=== PATIENT | male | born 1955 | race Caucasian/White ===

== ENCOUNTER 2017-06-13 18:45 | Emergency (ER) | payer BC ==
[2017-06-13 19:21] VITALS: RESP 18
[2017-06-13] MEDS ORDERED: SODIUM CHLORIDE 0.9% 1,000 ML IV STA (19:59)
[2017-06-13] MEDS ORDERED: MAG HYDROX/AL HYDROX/SIMETH 30 ML, HYOSCYAMINE ELIXIR 10 ML, CIMETIDINE HCL 300 MG, LID... PO STA ×4 (20:00)
--- NOTE | 2017-06-13 20:02 | ED ---
Abdominal Pain HPI - General Chief Complaint: Abdominal Pain Stated Complaint: Abd Pain Time Seen by Provider: 06/13/17 19:50 Source: patient, RN notes reviewed Mode of arrival: ambulatory Limitations: no limitations - History of Present Illness Initial Comments: This is a 61-year-old male who presents to the emergency department with chief complaint of abdominal pain. Patient states that the pain is generalized but is especially severe in the left upper quadrant. He states that the abdominal pain started on Wednesday. He went to an urgent care on and was discharged home without a diagnosis. Patient describes the pain is intermittent and sharp. He states that it goes away feelings on his left side. He states that pain is also relieved after having a bowel movement or belching. He states that he has been having normal bowel movements. Denies nausea or vomiting, diarrhea or constipation. He reports intermittent fevers. Denies chest pain or shortness of breath, dysuria or hematuria. - Related Data Home Medications Medication Instructions Recorded Confirmed Aspirin 325 mg PO DAILY PRN 10/01/15 10/02/15 Previous Rx's Medication Instructions Recorded Atorvastatin [Lipitor] 20 mg PO HS #30 tab 10/03/15 Meclizine [Antivert] 25 mg PO TID PRN #20 tab 10/03/15 Allergies Allergy/AdvReac Type Severity Reaction Status Date / Time No Known Allergies Allergy Verified 06/13/17 19:20 Review of Systems ROS Statement: Those systems with pertinent positive or pertinent negative responses have been documented in the HPI. ROS Other: All systems not noted in ROS Statement are negative. 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, CVA/TIA Additional Past Medical History / Comment(s): Shingelles in the past History of Any Multi-Drug Resistant Organisms: None Reported Past Surgical History: Orthopedic Surgery Additional Past Surgical History / Comment(s): R hand metal removed Past Anesthesia/Blood Transfusion Reactions: No Reported Reaction Past Psychological History: No Psychological Hx Reported Smoking Status: Current every day smoker Past Alcohol Use History: Occasional Past Drug Use History: None Reported - Past Family History Mother Family Medical History: Diabetes Mellitus, Hypertension Additional Family Medical History / Comment(s): Mother was 82 yrs old when she . Father Family Medical History: COPD Additional Family Medical History / Comment(s): Father is 82 yrs old. General Exam - General Exam Comments Initial Comments: General: Awake and alert, well-developed; in no apparent distress. HEENT: Head atraumatic, normocephalic. Pupils are equal, round and reactive to light. Extraocular movements intact. Oropharynx moist without erythema or exudate. Neck: Supple. Normal ROM. Cardiovascular: Regular rate and rhythm. No murmurs, rubs or gallops. Chest symmetrical. Respiratory: Lungs clear to auscultation bilaterally. No wheezes, rales or rhonchi. Normal respiratory effort with no use of accessory muscles. Abdomen: Obese. Soft, mildly distended. Tenderness on palpation of the epigastrium and left upper quadrant with guarding. No rigidity or rebound. Hypoactive bowel sounds in all 4 quadrants. Musculoskeletal: Normal ROM, no tenderness bilateral upper and lower extremities. Skin: [place], warm and dry without rashes or lesions. Neurological: Alert and oriented x3. CN II-XII grossly intact. Speech is fluent and answers are appropriate. No focal neuro deficits. Psychiatric: Normal mood and affect. No overt signs of depression or anxiety noted. Limitations: no limitations Course Vital Signs 06/13/17 06/13/17 06/13/17 19:18 21:20 22:29 Temperature 99.4 F 98.8 F 98 F Pulse Rate 115 H 71 78 Respiratory 18 18 18 Rate Blood Pressure 157/88 116/69 115/75 O2 Sat by Pulse 97 98 98 Oximetry - Reevaluation(s) Reevaluation #1: At this time, patient was reevaluated. He is resting comfortably in bed. He states that the GI cocktail seemed to have relieved some of his symptoms. Patient continues to have tenderness with guarding on palpation of epigastrium and left upper quadrant. Will order computed tomography scan of abdomen and pelvis. 06/13/17 21:02 Medical Decision Making - Medical Decision Making This is a 61-year-old male who presented to the emergency department for evaluation of abdominal pain. Patient has been experiencing intermittent sharp epigastric abdominal pain for the past 4 days. Deny nausea or vomiting, diarrhea or constipation. He did state that he felt like he was having intermittent fevers. He denied any urinary symptoms. On physical examination, patient is tender on palpation of epigastrium and left upper quadrant with guarding. A computed tomography scan was obtained. CBC revealed a white count of 13.8 with a left shift at 11.5. Liver enzymes were mildly elevated with an AST of 86, ALT 91, alkaline phosphatase 344 and a total bilirubin of 2.5. These are elevated when compared to previous laboratory studies. Computed tomography scan of abdomen and pelvis with contrast revealed massive ascites, multiple liver masses consistent with metastatic disease and a 5 cm mass in the tail of the pancreas. These findings were discussed in length in detail with the patient and his at bedside. Recommended admission to the hospital for further evaluation. Patient refuses admission and would like to follow up outpatient with oncology. Patient's vital signs are stable and he is in no acute distress. He will be discharged home at this time. This case was discussed in length with attending physician, Dr. Fenton. - Lab Data Result diagrams: 06/13/17 20:20 06/13/17 20:20 Lab Results 06/13/17 06/13/17 06/13/17 Range/Units 20:20 20:20 20:20 WBC 13.8 H (3.8-10.6) k/uL RBC 5.76 (4.30-5.90) m/uL Hgb 16.9 (13.0-17.5) gm/dL Hct 51.9 (39.0-53.0) % MCV 90.1 (80.0-100.0) fL MCH 29.4 (25.0-35.0) pg MCHC 32.7 (31.0-37.0) g/dL RDW 13.5 (11.5-15.5) % Plt Count 159 (150-450) k/uL Neutrophils % 84 % Lymphocytes % 5 % Monocytes % 8 % Eosinophils % 2 % Basophils % 0 % Neutrophils # 11.5 H (1.3-7.7) k/uL Lymphocytes # 0.8 L (1.0-4.8) k/uL Monocytes # 1.1 H (0-1.0) k/uL Eosinophils # 0.3 (0-0.7) k/uL Basophils # 0.0 (0-0.2) k/uL Sodium 137 (137-145) mmol/L Potassium 4.6 (3.5-5.1) mmol/L Chloride 101 (98-107) mmol/L Carbon Dioxide 24 (22-30) mmol/L Anion Gap 12 mmol/L BUN 18 (9-20) mg/dL Creatinine 0.90 (0.66-1.25) mg/dL Est GFR (CKD-EPI)AfAm >90 (>60 ml/min/1.73 sqM) Est GFR (CKD-EPI)NonAf >90 (>60 ml/min/1.73 sqM) Glucose 119 H (74-99) mg/dL Calcium 9.4 (8.4-10.2) mg/dL Total Bilirubin 2.5 H (0.2-1.3) mg/dL AST 86 H (17-59) U/L ALT 91 H (21-72) U/L Alkaline Phosphatase 344 H (38-126) U/L Total Protein 5.8 L (6.3-8.2) g/dL Albumin 3.3 L (3.5-5.0) g/dL Amylase 74 (30-110) U/L Lipase 241 (23-300) U/L Urine Color [place] Urine Appearance Cloudy (Clear) Urine pH 5.5 (5.0-8.0) Ur Specific [place] 1.027 (1.001-1.035) Urine Protein 1+ H (Negative) Urine Glucose (UA) Negative (Negative) Urine Ketones Trace H (Negative) Urine Blood Negative (Negative) Urine Nitrite Negative (Negative) Urine Bilirubin 1+ H (Negative) Urine Urobilinogen 6.0 (<2.0) mg/dL Ur Leukocyte Esterase Negative (Negative) Urine RBC 62 H (0-5) /hpf Urine WBC 2 (0-5) /hpf Ur Squamous Epith Cells 1 (0-4) /hpf Calcium Oxalate Crystal Rare H (None) /hpf Hyaline Casts 3 H (0-2) /lpf Urine Mucus Moderate H (None) /hpf - Radiology Data Radiology results: report reviewed KUB impression: Relative paucity of bowel gas, suboptimal examination due to patient habitus. CT abdomen and pelvis with contrast impression: Massive ascites. Multiple low- density liver masses consistent with metastatic disease. 5 cm low-density mass in the tail of the pancreas suspicious for tumor. Follow-up is recommended. Disposition Clinical Impression: Pancreatic mass, Liver mass, Ascites Disposition: HOME SELF-CARE Condition: Fair Instructions: Ascites (ED), Abdominal Pain (ED) Additional Instructions: Please follow-up with Dr. Hayward as soon as possible. Please follow up with primary care provider within 1-2 days. Return to emergency department if symptoms should worsen or any concerns arise. Is patient prescribed a controlled substance at d/c from ED?: No Referrals: Hang Young MD [Primary Care Provider] - 1-2 days Glenis Hayward MD [STAFF PHYSICIAN] - 1-2 days Time of Disposition: 23:35
--- NOTE | 2017-06-13 20:12 | XR ---
EXAMINATION TYPE: XR KUB DATE OF EXAM: 06/13/2017 8:09 PM CLINICAL HISTORY: Abdominal pain and nausea TECHNIQUE: 2 views the abdomen were obtained. COMPARISON: None. FINDINGS: Ossific nonobstructive bowel gas pattern is identified. There is a relative paucity of manasa l gas noted. However, examination is suboptimal due to patient habitus. IMPRESSION: Relative paucity of bowel gas, suboptimal examination due to patient habitus.
[2017-06-13 20:33] LABS: Basophils % (A) 0 %; Eosinophils # (A) 0.3 k/uL (0-0.7); Eosinophils % (A) 2 %; HCT 51.9 % (39.0-53.0); HGB 16.9 gm/dL (13.0-17.5); Lymphocytes # (A) 0.8 k/uL (1.0-4.8); Lymphocytes % (A) 5 %; MCH 29.4 pg (25.0-35.0); MCHC 32.7 g/dL (31.0-37.0); MCV 90.1 fL (80.0-100.0); Mean Platelet Volume 7.7; Monocytes # (A) 1.1 k/uL (0-1.0); Monocytes % (A) 8 %; Neutrophils # (A) 11.5 k/uL (1.3-7.7); Neutrophils % (A) 84 %; Platelet Count 159 k/uL (150-450); RBC 5.76 m/uL (4.30-5.90); RDW 13.5 % (11.5-15.5); WBC 13.8 k/uL (3.8-10.6)
[2017-06-13 20:39] LABS: Appearance,Urine Cloudy (Clear); Bilirubin,Urine 1+ (Negative); Blood,Urine Negative (Negative); Calcium Oxalate Crystals,Urine Rare /hpf; Color,Urine Orange; Glucose,Urine (UA) Negative (Negative); Hyaline Casts,Urine 3 /lpf (0-2); Ketones,Urine Trace (Negative); Leukocyte Esterase,Urine Negative (Negative); Mucus,Urine Moderate /hpf; Nitrite,Urine Negative (Negative); PH, Urine 5.5 (5.0-8.0); Protein,Urine 1+ (Negative); RBC,Urine 62 /hpf (0-5); Specific Gravity,Urine 1.027 (1.001-1.035); Squamous Epithelial Cell,Urine 1 /hpf (0-4); WBC,Urine 2 /hpf (0-5)
[2017-06-13 20:44] LABS: ALT 91 U/L (21-72); AST 86 U/L (17-59); Albumin 3.3 g/dL (3.5-5.0); Alkaline Phosphatase 344 U/L (38-126); Amylase 74 U/L (30-110); Anion Gap 12 mmol/L; Blood Urea Nitrogen 18 mg/dL (9-20); Calcium 9.4 mg/dL (8.4-10.2); Carbon Dioxide 24 mmol/L (22-30); Chloride 101 mmol/L (98-107); Glucose 119 mg/dL (74-99); Lipase 241 U/L (23-300); Potassium 4.6 mmol/L (3.5-5.1); Sodium 137 mmol/L (137-145); Total Bilirubin 2.5 mg/dL (0.2-1.3); Total Protein 5.8 g/dL (6.3-8.2)
[2017-06-13] MEDS ORDERED: RX INFO: IV CONTRAST WAS GIVEN 1 EACH MISC MISCELLANE PRN (21:01)
[2017-06-13 22:30] VITALS: PULSE 78
--- NOTE | 2017-06-13 23:01 | CT ---
EXAMINATION TYPE: CT abdomen pelvis w con DATE OF EXAM: 06/13/2017 COMPARISON: NONE HISTORY: Generalized abdominal pain x [address] DLP: 3872 mGycm Automated exposure control for dose reduction was used. TECHNIQUE: Helical acquisition of images was performed from the lung bases through the pelvis. CONTRAST: Performed without Oral Contrast and with IV Contrast, patient injected with 100 mL of Isovue 300. FINDINGS: Lung bases are clear. There is no pleural effusion. There is no pericardial effusion. There is a large amount of ascites fluid throughout the abdomen. There are multiple variable-sized hy podense lesions throughout the liver that measure up to 4 cm. The bile ducts are not dilated. There i s a low-density 5 cm mass at the tail of the pancreas. There is no adrenal mass. Kidneys show satisfactory contrast opacification. There is no hydronephrosi s. There is no retroperitoneal adenopathy. I see no evidence of a bowel obstruction. There are no dilated loops. Bladder distends smoothly. Ther e is prostatic calcification. Lumbar vertebra have normal alignment. There is some vacuum disc phenomenon. There is degenerative sp ur formation. I see no compression fracture. I see no focal bone destruction. IMPRESSION: MASSIVE ASCITES. MULTIPLE LOW DENSITY LIVER MASSES CONSISTENT WITH METASTATIC DISEASE. 5 CM LOW-DENSITY MASS IN THE TAIL OF THE PANCREAS SUSPICIOUS FOR TUMOR. FOLLOW-UP IS RECOMMENDED.
[2017-06-13 23:48] VITALS: BP 116/78; TEMP 98.5
== END 2017-06-13 23:48 | disposition home or self-care (01) ==
LOC: EC 18:45
DX: R18.8 Other ascites (principal); R16.0 Hepatomegaly, not elsewhere classified; K86.89 Other specified diseases of pancreas; R10.13 Epigastric pain; R10.12 Left upper quadrant pain; R74.0 Nonspecific elevation of levels of transaminase and lactic acid dehydrogenase [LDH]; F17.200 Nicotine dependence, unspecified, uncomplicated; Z86.73 Personal history of transient ischemic attack (TIA), and cerebral infarction without residual deficits
CPT/HCPCS: 36415; 80053; 82150; 83690; 85025; 81001; 87086; 74018; 74177; 99284; 96360; 96361; Q9967

== ENCOUNTER 2017-06-17 15:05 | Inpatient (IN) | payer BC ==
[2017-06-17] MEDS ORDERED: ONDANSETRON 4 MG/2 ML VIAL IVP STA (15:59)
[2017-06-17] MEDS ORDERED: MORPHINE SULFATE 4 MG/ML SYRINGE IV STA (15:59)
[2017-06-17 16:18] LABS: Basophils # (A) 0.1 k/uL (0-0.2); Basophils % (A) 0 %; Eosinophils # (A) 0.4 k/uL (0-0.7); Eosinophils % (A) 3 %; HCT 52.8 % (39.0-53.0); HGB 17.4 gm/dL (13.0-17.5); Lymphocytes # (A) 0.8 k/uL (1.0-4.8); Lymphocytes % (A) 6 %; MCH 29.7 pg (25.0-35.0); MCV 90.1 fL (80.0-100.0); Mean Platelet Volume 7.3; Monocytes # (A) 1.1 k/uL (0-1.0); Monocytes % (A) 8 %; Neutrophils # (A) 11.7 k/uL (1.3-7.7); Neutrophils % (A) 83 %; Platelet Count 167 k/uL (150-450); RBC 5.86 m/uL (4.30-5.90); RDW 13.5 % (11.5-15.5); WBC 14.2 k/uL (3.8-10.6)
[2017-06-17 16:30] LABS: ALT 91 U/L (21-72); AST 88 U/L (17-59); Albumin 3.1 g/dL (3.5-5.0); Alkaline Phosphatase 390 U/L (38-126); Amylase 170 U/L (30-110); Anion Gap 10 mmol/L; Blood Urea Nitrogen 17 mg/dL (9-20); Calcium 9.4 mg/dL (8.4-10.2); Carbon Dioxide 23 mmol/L (22-30); Chloride 102 mmol/L (98-107); Glucose 138 mg/dL (74-99); Lipase 755 U/L (23-300); Potassium 5.1 mmol/L (3.5-5.1); Sodium 135 mmol/L (137-145); Total Bilirubin 3.5 mg/dL (0.2-1.3); Total Protein 5.7 g/dL (6.3-8.2)
--- NOTE | 2017-06-17 16:34 | XR ---
EXAMINATION TYPE: XR abdomen acute w cxr DATE OF EXAM: 06/17/2017 COMPARISON: 06/13/2017 HISTORY: Pain TECHNIQUE: Supine, upright, and left side down lateral decubitus views of the abdomen are obtained. FINDINGS: Coarsened interstitium be seen with chronic irritation lung disease. No focal pneumonia or pleural effusion pneumothorax. Arthropathy of the shoulder. Bowel gas pattern nonspecific. Air seen throughout large and small bowel loops in a nonspecific patte rn. Hypertrophic and degenerative change of the spine. IMPRESSION: Nonspecific abdomen.
[2017-06-17 17:04] LABS: Appearance,Urine Cloudy (Clear); Bilirubin,Urine 2+ (Negative); Blood,Urine Negative (Negative); Calcium Oxalate Crystals,Urine Rare /hpf; Color,Urine Dark Brown; Glucose,Urine (UA) Negative (Negative); Hyaline Casts,Urine 8 /lpf (0-2); Ketones,Urine Negative (Negative); Leukocyte Esterase,Urine Negative (Negative); Mucus,Urine Moderate /hpf; Nitrite,Urine Negative (Negative); PH, Urine 5.5 (5.0-8.0); Protein,Urine 1+ (Negative); RBC,Urine 2 /hpf (0-5); Specific Gravity,Urine 1.026 (1.001-1.035); Squamous Epithelial Cell,Urine <1 /hpf (0-4); WBC,Urine 1 /hpf (0-5)
[2017-06-17] MEDS ORDERED: ONDANSETRON 4 MG/2 ML VIAL IVP PRN (17:16)
[2017-06-17] MEDS ORDERED: NALOXONE 0.4 MG/ML 1 ML VIAL IV PRN (17:16)
--- NOTE | 2017-06-17 17:22 | ED ---
General Adult HPI - General Chief complaint: Abdominal Pain Stated complaint: retaining fluid Time Seen by Provider: 06/17/17 15:48 Source: patient, RN notes reviewed, old records reviewed Mode of arrival: ambulatory Limitations: no limitations - History of Present Illness Initial comments: 61-year-old male presenting with worsening abdominal pain and distention. Patient was evaluated emergency department several days ago, did receive computed tomography scan which showed ascites, pancreatic mass, and liver metastases. Patient has been unable to arrange outpatient follow-up. He was offered admission at that time but stated he preferred outpatient evaluation. This pain has worsened, his abdominal distention has worsened. He has had dark colored urine. There is been nausea with no significant vomiting. No chest pain or shortness of breath. Patient does complain of fatigue. - Related Data Home Medications Medication Instructions Recorded Confirmed No Known Home Medications [No 06/17/17 06/17/17 Known Home Medications] Allergies Allergy/AdvReac Type Severity Reaction Status Date / Time No Known Allergies Allergy Verified 06/17/17 16:13 Review of Systems ROS Statement: Those systems with pertinent positive or pertinent negative responses have been documented in the HPI. ROS Other: All systems not noted in ROS Statement are negative. Past Medical History Past Medical History: CVA/TIA Additional Past Medical History / Comment(s): Shingelles in the past History of Any Multi-Drug Resistant Organisms: None Reported Past Surgical History: Orthopedic Surgery Additional Past Surgical History / Comment(s): R hand metal removed Past Anesthesia/Blood Transfusion Reactions: No Reported Reaction Past Psychological History: No Psychological Hx Reported Smoking Status: Current every day smoker Past Alcohol Use History: Occasional Past Drug Use History: None Reported - Past Family History Mother Family Medical History: Diabetes Mellitus, Hypertension Additional Family Medical History / Comment(s): Mother was 82 yrs old when she . Father Family Medical History: COPD Additional Family Medical History / Comment(s): Father is 82 yrs old. General Exam Limitations: no limitations General appearance: alert, in no apparent distress Head exam: Present: atraumatic, normocephalic Eye exam: Present: PERRL, scleral icterus ENT exam: Present: normal exam Neck exam: Present: normal inspection. Absent: tenderness Respiratory exam: Present: normal lung sounds bilaterally. Absent: respiratory distress Cardiovascular Exam: Present: normal rhythm, tachycardia GI/Abdominal exam: Present: distended, tenderness. Absent: guarding, rebound Extremities exam: Present: normal inspection, normal capillary refill, pedal edema Back exam: Present: normal inspection, full ROM Neurological exam: Present: alert, oriented X3, CN II-XII intact. Absent: motor sensory deficit Skin exam: Present: warm, dry, intact. Absent: cyanosis, diaphoretic Course Vital Signs 06/17/17 06/17/17 15:12 16:58 Temperature 98.8 F 97.8 F Pulse Rate 118 H 101 H Respiratory 20 18 Rate Blood Pressure 152/92 152/95 O2 Sat by Pulse 96 96 Oximetry Medical Decision Making - Medical Decision Making 61-year-old male with new diagnosis of pancreatic mass with ascites and liver metastases. Laboratory studies are worsening, elevated lipase, elevated AST and ALT and worsening bilirubin. Patient will be admitted to internal medicine and gastroenterology and oncology will be placed on consult. Case discussed with Dr. Saldaña who will accept admission. - Lab Data Result diagrams: 06/17/17 16:09 06/17/17 16:09 Lab Results 06/17/17 06/17/17 06/17/17 Range/Units 16:09 16:09 16:09 WBC 14.2 H (3.8-10.6) k/uL RBC 5.86 (4.30-5.90) m/uL Hgb 17.4 (13.0-17.5) gm/dL Hct 52.8 (39.0-53.0) % MCV 90.1 (80.0-100.0) fL MCH 29.7 (25.0-35.0) pg MCHC 33.0 (31.0-37.0) g/dL RDW 13.5 (11.5-15.5) % Plt Count 167 (150-450) k/uL Neutrophils % 83 % Lymphocytes % 6 % Monocytes % 8 % Eosinophils % 3 % Basophils % 0 % Neutrophils # 11.7 H (1.3-7.7) k/uL Lymphocytes # 0.8 L (1.0-4.8) k/uL Monocytes # 1.1 H (0-1.0) k/uL Eosinophils # 0.4 (0-0.7) k/uL Basophils # 0.1 (0-0.2) k/uL Sodium 135 L (137-145) mmol/L Potassium 5.1 (3.5-5.1) mmol/L Chloride 102 (98-107) mmol/L Carbon Dioxide 23 (22-30) mmol/L Anion Gap 10 mmol/L BUN 17 (9-20) mg/dL Creatinine 0.80 (0.66-1.25) mg/dL Est GFR (CKD-EPI)AfAm >90 (>60 ml/min/1.73 sqM) Est GFR (CKD-EPI)NonAf >90 (>60 ml/min/1.73 sqM) Glucose 138 H (74-99) mg/dL Plasma Lactic Acid [place] 1.5 (0.7-2.0) mmol/L Calcium 9.4 (8.4-10.2) mg/dL Total Bilirubin 3.5 H (0.2-1.3) mg/dL AST 88 H (17-59) U/L ALT 91 H (21-72) U/L Alkaline Phosphatase 390 H (38-126) U/L Troponin I (0.000-0.034) ng/mL Total Protein 5.7 L (6.3-8.2) g/dL Albumin 3.1 L (3.5-5.0) g/dL Amylase 170 H (30-110) U/L Lipase 755 H (23-300) U/L Urine Color Urine Appearance (Clear) Urine pH (5.0-8.0) Ur Specific [place] (1.001-1.035) Urine Protein (Negative) Urine Glucose (UA) (Negative) Urine Ketones (Negative) Urine Blood (Negative) Urine Nitrite (Negative) Urine Bilirubin (Negative) Urine Urobilinogen (<2.0) mg/dL Ur Leukocyte Esterase (Negative) Urine RBC (0-5) /hpf Urine WBC (0-5) /hpf Ur Squamous Epith Cells (0-4) /hpf Calcium Oxalate Crystal (None) /hpf Hyaline Casts (0-2) /lpf Urine Mucus (None) /hpf 06/17/17 06/17/17 Range/Units 16:09 16:47 WBC (3.8-10.6) k/uL RBC (4.30-5.90) m/uL Hgb (13.0-17.5) gm/dL Hct (39.0-53.0) % MCV (80.0-100.0) fL MCH (25.0-35.0) pg MCHC (31.0-37.0) g/dL RDW (11.5-15.5) % Plt Count (150-450) k/uL Neutrophils % % Lymphocytes % % Monocytes % % Eosinophils % % Basophils % % Neutrophils # (1.3-7.7) k/uL Lymphocytes # (1.0-4.8) k/uL Monocytes # (0-1.0) k/uL Eosinophils # (0-0.7) k/uL Basophils # (0-0.2) k/uL Sodium (137-145) mmol/L Potassium (3.5-5.1) mmol/L Chloride (98-107) mmol/L Carbon Dioxide (22-30) mmol/L Anion Gap mmol/L BUN (9-20) mg/dL Creatinine (0.66-1.25) mg/dL Est GFR (CKD-EPI)AfAm (>60 ml/min/1.73 sqM) Est GFR (CKD-EPI)NonAf (>60 ml/min/1.73 sqM) Glucose (74-99) mg/dL Plasma Lactic Acid [place] (0.7-2.0) mmol/L Calcium (8.4-10.2) mg/dL Total Bilirubin (0.2-1.3) mg/dL AST (17-59) U/L ALT (21-72) U/L Alkaline Phosphatase (38-126) U/L Troponin I <0.012 (0.000-0.034) ng/mL Total Protein (6.3-8.2) g/dL Albumin (3.5-5.0) g/dL Amylase (30-110) U/L Lipase (23-300) U/L Urine Color [place] Urine Appearance Cloudy (Clear) Urine pH 5.5 (5.0-8.0) Ur Specific [place] 1.026 (1.001-1.035) Urine Protein 1+ H (Negative) Urine Glucose (UA) Negative (Negative) Urine Ketones Negative (Negative) Urine Blood Negative (Negative) Urine Nitrite Negative (Negative) Urine Bilirubin 2+ H (Negative) Urine Urobilinogen 6.0 (<2.0) mg/dL Ur Leukocyte Esterase Negative (Negative) Urine RBC 2 (0-5) /hpf Urine WBC 1 (0-5) /hpf Ur Squamous Epith Cells <1 (0-4) /hpf Calcium Oxalate Crystal Rare H (None) /hpf Hyaline Casts 8 H (0-2) /lpf Urine Mucus Moderate H (None) /hpf Disposition Clinical Impression: Pancreatic mass, Liver mass, Hyperbilirubinemia Disposition: ADMITTED IP TO THIS [facility] Condition: Serious Is patient prescribed a controlled substance at d/c from ED?: No Referrals: Hang Young MD [Primary Care Provider] - 1-2 days Decision to Admit Reason: Admit from EC Decision Date: 06/17/17 Decision Time: 17:22
[2017-06-17] MEDS: MORPHINE SULFATE 4 MG/ML SYRINGE IV PRN (23:18)
[2017-06-18 06:37] VITALS: TEMP 98.3
[2017-06-18 08:55] LABS: Basophils % (A) 0 %; Eosinophils # (A) 0.7 k/uL (0-0.7); Eosinophils % (A) 7 %; HCT 54.8 % (39.0-53.0); HGB 17.2 gm/dL (13.0-17.5); Lymphocytes # (A) 0.6 k/uL (1.0-4.8); Lymphocytes % (A) 6 %; MCH 28.7 pg (25.0-35.0); MCHC 31.4 g/dL (31.0-37.0); MCV 91.5 fL (80.0-100.0); Mean Platelet Volume 7.9; Monocytes # (A) 0.9 k/uL (0-1.0); Monocytes % (A) 8 %; Neutrophils # (A) 8.6 k/uL (1.3-7.7); Neutrophils % (A) 78 %; Platelet Count 163 k/uL (150-450); RBC 5.99 m/uL (4.30-5.90); RDW 13.5 % (11.5-15.5)
[2017-06-18] MEDS ORDERED: PANTOPRAZOLE 40 MG/10 ML VIAL IV SCH (09:00)
[2017-06-18 09:11] LABS: ALT 85 U/L (21-72); AST 71 U/L (17-59); Alkaline Phosphatase 381 U/L (38-126); Anion Gap 9 mmol/L; Blood Urea Nitrogen 17 mg/dL (9-20); Calcium 9.2 mg/dL (8.4-10.2); Carbon Dioxide 26 mmol/L (22-30); Chloride 99 mmol/L (98-107); Glucose 99 mg/dL (74-99); INR 1.6 (<1.2); Lipase 296 U/L (23-300); Magnesium 2.3 mg/dL (1.6-2.3); Phosphorus 3.2 mg/dL (2.5-4.5); Prothrombin Time 14.4 sec (9.0-12.0); Sodium 134 mmol/L (137-145); Total Bilirubin 4.1 mg/dL (0.2-1.3); Total Protein 5.5 g/dL (6.3-8.2)
--- NOTE | 2017-06-18 09:30 | P.CONS ---
History of Present Illness - Reason for Consult Consult date: 06/18/17 Pancreatic mass elevated liver enzymes Requesting physician: Enedina Saldaña - History of Present Illness 61-year-old gentleman patient of Dr. Sachin Young with a past medical history obesity, CVA, shingles, long-standing nicotine cigarette dependency. Patient has not felt well for about 2 weeks with increased abdominal distention discomfort over the last week. Intermittent nausea and no emesis. Denies fever chills hematemesis hematochezia melena. Intermittent dark colored urine sometimes pink in color. CT abdomen and pelvis 06/13/2017 reported large amount of ascites throughout the abdomen with multiple variable sized hypodense lesions throughout the liver measuring up to 4 cm without bile duct dilation consistent with metastatic disease. Low-density 5 cm mass of the tail of the pancreas suspicious for tumor. No evidence of bowel obstruction. Laboratory studies over the last week; White count 11-13.8. Hemoglobin 16.9- 17.2. Platelet 163. INR 1.6. Total bilirubin 2.5-4.1. AST 71-88. ALT 85- 91. AP 344-381. Lipase 241-755. Amylase 74-170. No history of hepatitis or jaundice or alcoholism however he does drink a few beers on occasion. No history of intravenous drug abuse. No significant weight loss. Review of Systems Constitutional: Denies fever, chills, sweats, reports weight gain denies weight loss. HEENT: Negative for migraines, blurred vision or loss, earaches, drainage, tinnitus, oral mucosal lesions, dysphagia, or odynophagia. Cardiac: Negative for chest pain, arrhythmias, or palpitation. Respiratory: Negative for shortness of breath, hemoptysis, cough, or sputum production. Gastrointestinal: See HPI for pertinent findings. Genitourinary: Negative for hematuria, urgency, frequency, polyuria, dysuria, or penile discharge. Musculoskeletal: Negative for muscle aches, swelling, arthritis, and arthralgias. Neurologic: Negative for stroke or TIA. Endocrine: Negative for thyroid problems. Skin: Negative for rash or itching. Psychiatric: Negative history for depression and anxiety Past Medical History Past Medical History: CVA/TIA Additional Past Medical History / Comment(s): Shingelles in the past, CONCUSSIONS(FOOTBALL), SROKE 2016-NO RESIDUAL. PT STATE RECENTLY FOUND OUT "I HAVE TUMORS ON PANCAREAS AND LIVER, ascities" History of Any Multi-Drug Resistant Organisms: None Reported Past Surgical History: Orthopedic Surgery Additional Past Surgical History / Comment(s): R hand sx to remove a peice of metal removed, vasectomy Past Anesthesia/Blood Transfusion Reactions: Motion Sickness Additional Past Anesthesia/Blood Transfusion Reaction / Comm: clausterphobia Smoking Status: Current every day smoker - Past Family History Mother Family Medical History: Diabetes Mellitus, Hypertension Additional Family Medical History / Comment(s): Mother was 82 yrs old when she . Father Family Medical History: COPD Additional Family Medical History / Comment(s): Father is 82 yrs old. Medications and Allergies Home Medications Medication Instructions Recorded Confirmed Type No Known Home Medications [No 06/17/17 06/17/17 History Known Home Medications] Allergies Allergy/AdvReac Type Severity Reaction Status Date / Time No Known Allergies Allergy Verified 06/17/17 16:13 Physical Exam Vitals: Vital Signs Temp Pulse Pulse Resp BP BP Pulse Ox 06/18/17 06:00 98.3 F 81 16 115/71 94 L 06/17/17 20:40 99.4 F 99 18 137/85 98 06/17/17 20:07 98.7 F 87 18 135/78 99 06/17/17 18:49 90 16 130/81 94 L 06/17/17 16:58 97.8 F 101 H 18 152/95 96 06/17/17 15:12 98.8 F 118 H 20 152/92 96 Intake and Output 06/17/17 06/18/17 06/18/17 22:59 06:59 14:59 Other: Voiding Method Toilet Weight 136.078 kg General appearance: The patient is alert, oriented, in no acute distress. HET: Head is normocephalic and atraumatic. Pupils are equal and reactive. Sclerae dull mildly jaundice. Oropharynx is clear without lesions. Neck: Supple without lymphadenopathy. Trachea midline. Heart: S1 S2. Regular rate and rhythm. Lungs: No crackles or wheezes are heard. Abdomen: Soft, distended firm moderate ascites mild discomfort generalized throughout with bowel sounds. No peritoneal signs. No palpable organomegaly or masses. Extremities: Normal skin color and turgor. No cyanosis, rash, ulceration, clubbing, or edema. Radial and pedal pulses are 2/4 bilaterally. Neurological: No focal deficits. Strength and sensation are grossly intact. Results CBC & Chem 7: 06/18/17 08:33 06/18/17 08:33 Labs: Abnormal Lab Results - Last 24 Hours (Table) 06/17/17 06/17/17 06/17/17 Range/Units 16:09 16:09 16:47 WBC 14.2 H (3.8-10.6) k/uL RBC (4.30-5.90) m/uL Hct (39.0-53.0) % Neutrophils # 11.7 H (1.3-7.7) k/uL Lymphocytes # 0.8 L (1.0-4.8) k/uL Monocytes # 1.1 H (0-1.0) k/uL PT (9.0-12.0) sec INR (<1.2) Sodium 135 L (137-145) mmol/L Glucose 138 H (74-99) mg/dL Total Bilirubin 3.5 H (0.2-1.3) mg/dL AST 88 H (17-59) U/L ALT 91 H (21-72) U/L Alkaline Phosphatase 390 H (38-126) U/L Total Protein 5.7 L (6.3-8.2) g/dL Albumin 3.1 L (3.5-5.0) g/dL Amylase 170 H (30-110) U/L Lipase 755 H (23-300) U/L Urine Protein 1+ H (Negative) Urine Bilirubin 2+ H (Negative) Calcium Oxalate Crystal Rare H (None) /hpf Hyaline Casts 8 H (0-2) /lpf Urine Mucus Moderate H (None) /hpf 06/18/17 06/18/17 06/18/17 Range/Units 08:33 08:33 08:33 WBC 11.0 H (3.8-10.6) k/uL RBC 5.99 H (4.30-5.90) m/uL Hct 54.8 H (39.0-53.0) % Neutrophils # 8.6 H (1.3-7.7) k/uL Lymphocytes # 0.6 L (1.0-4.8) k/uL Monocytes # (0-1.0) k/uL PT 14.4 H (9.0-12.0) sec INR 1.6 H (<1.2) Sodium 134 L (137-145) mmol/L Glucose (74-99) mg/dL Total Bilirubin 4.1 H (0.2-1.3) mg/dL AST 71 H (17-59) U/L ALT 85 H (21-72) U/L Alkaline Phosphatase 381 H (38-126) U/L Total Protein 5.5 L (6.3-8.2) g/dL Albumin 3.0 L (3.5-5.0) g/dL Amylase (30-110) U/L Lipase (23-300) U/L Urine Protein (Negative) Urine Bilirubin (Negative) Calcium Oxalate Crystal (None) /hpf Hyaline Casts (0-2) /lpf Urine Mucus (None) /hpf CT scan - abdomen: report reviewed (Dr. Segura) Assessment and Plan (1) Elevated liver enzymes Narrative/Plan: Cholestatic jaundice secondary to suspected hepatic metastasis at this time ERCP is not indicated. CT reviewed no evidence of intra-or extrahepatic biliary dilatation. Current Visit: Yes Status: Acute Code(s): R74.8 - ABNORMAL LEVELS OF OTHER SERUM ENZYMES SNOMED Code(s): 807258758 (2) Jaundice Current Visit: Yes Status: Acute Code(s): R17 - UNSPECIFIED JAUNDICE SNOMED Code(s): 50388421 (3) Coagulopathy Current Visit: Yes Status: Acute Code(s): D68.9 - COAGULATION DEFECT, UNSPECIFIED SNOMED Code(s): 41144905 (4) Liver mass Current Visit: Yes Status: Acute Code(s): R16.0 - HEPATOMEGALY, NOT ELSEWHERE CLASSIFIED SNOMED Code(s): 931307864 (5) Pancreatic mass Narrative/Plan: Suspicious for pancreatic malignancy Current Visit: Yes Status: Acute Code(s): K86.9 - DISEASE OF PANCREAS, UNSPECIFIED SNOMED Code(s): 773571425 (6) Ascites Narrative/Plan: Possible malignant Current Visit: No Status: Acute Code(s): R18.8 - OTHER ASCITES SNOMED Code (s): 189496700 (7) Morbid obesity with BMI of 40.0-44.9, adult Current Visit: Yes Status: Chronic Code(s): E66.01 - MORBID (SEVERE) OBESITY DUE TO EXCESS CALORIES; Z68.41 - BODY MASS INDEX (BMI) 40.0-44.9, ADULT SNOMED Code(s): 848228598 Plan: 1. Therapeutic diagnostic ultrasound-guided paracentesis requested today will request fluid for cytology. 2. AFP, CEA, CA-19-9 requested. 3. Low-salt diet. 4. Oncology consultation evaluation for suspected metastatic malignancy possible liver biopsy. 5. No aspirin products in preparation for possible liver biopsy. 6. CMP monitoring. If patient has worsening jaundice with clinical evidence to suggest biliary obstruction we'll proceed with MRCP/ERCP accordingly. 7. Hepatitis panel. 8. Will follow with you. Thank you for this kind referral and the opportunity to participate in the care of your patient. This consultation was discussed with Dr. Segura. The impression and plan of care have been directed as dictated.
[2017-06-18] MEDS: MORPHINE SULFATE 4 MG/ML SYRINGE IV PRN (10:40)
[2017-06-18] MEDS ORDERED: NICOTINE 21MG/24HR PATCH TRANSDERM SCH (11:00)
[2017-06-18] MEDS ORDERED: LIDOCAINE 1% INJ 10MG/ML (20 ML MDV) SQ STA (11:30)
[2017-06-18 11:37] VITALS: RESP 16
[2017-06-18 12:52] VITALS: BP 121/81; PULSE 88
--- NOTE | 2017-06-18 13:54 | US ---
Therapeutic and diagnostic paracentesis. DATE OF EXAM: 06/18/2017 CLINICAL HISTORY: Ascites The procedure was discussed with the patient. The risks, complications, benefits, and alternatives we re discussed and any questions were answered. Informed consent was obtained. The patient was placed s upine on the ultrasound table and prepped and draped in the usual sterile fashion. All elements of maximal barrier technique were utilized. Under ultrasound guidance, access into the right lower quadrant was obtained, via the paracentesis catheter system and direct ultrasound guidanc e. Approximately 9.2 liters of straw-colored fluid was removed. The patient was stable throughout the pr ocedure and remained stable upon discharge from Department of Radiology. Sample sent to pathology for analysis. IMPRESSION: Successful therapeutic and diagnostic paracentesis under ultrasound guidance.
--- NOTE | 2017-06-18 14:37 | P.HPIM ---
History of Present Illness H&P Date: 06/18/17 Chief Complaint: Abdominal pain HISTORY AND PHYSICAL AND DISCHARGE SUMMARY: This is a 61-year-old male patient of Dr. Hang Young with history of CVA in 2016 with no residual, shingles, tobacco use and dependence. Recently presented to [facility] emergency center on June 13 with complaints of abdominal pain. He had a CAT scan of the abdomen and pelvis that showed massive ascites. Multiple low-density liver masses consistent with metastatic disease. 5 cm low-density mass in the tail of the pancreas suspicious for tumor. Patient has two-week history of abdominal distention this worsened with intermittent nausea without emesis. No fever or chills. Positive fatigue. He does have a scheduled appointment for biopsy next week and an appointment with Dr. Hayward on July 05. Patient came into [facility] emergency center for evaluation. He was afebrile, tachycardic at 118, blood pressure was on the high side, positive leukocytosis of 14.2. Lactic acid was 1.5. Total bilirubin 3.5, AST 88, ALT 91, alkaline phosphatase 390, total protein 5.7, albumin 3.1, amylase 170 and lipase 755. Troponin was negative. Urinalysis is dark brown and cloudy, nitrate and leukoesterase negative, urobilinogen and 6, urine bilirubin 2+. INR is 1.6. [facility] and consult placed with GI and oncology. Patient is status post paracentesis with removal of 9.2 L of fluid and is anxious to be discharged home. Patient will be discharged today in stable condition. Discharge Medication List Ondansetron [Zofran] 4 mg PO Q6H PRN #24 tab 06/18/17 [Rx] Review of Systems All systems: negative Constitutional: Denies chills, Denies fever Eyes: denies blurred vision, denies pain Ears, nose, mouth and throat: Denies headache, Denies sore throat, Denies vertigo Cardiovascular: Denies chest pain, Denies decreased exercise tolerance, Denies dyspnea on exertion, Denies lightheadedness, Denies shortness of breath, Denies syncope Respiratory: Denies cough, Denies cough with sputum, Denies dyspnea, Denies excessive sputum, Denies wheezing Gastrointestinal: Reports abdominal pain, Reports bloating, Reports nausea, Denies diarrhea, Denies melena, Denies vomiting Genitourinary: Denies dysuria Musculoskeletal: Denies myalgias Integumentary: Denies pruritus, Denies rash Neurological: Denies numbness, Denies weakness Psychiatric: Denies anxiety, Denies depression Endocrine: Denies fatigue, Denies weight change Past Medical History Past Medical History: CVA/TIA Additional Past Medical History / Comment(s): Shingles left forearm, CONCUSSIONS (FOOTBALL), pancreatic mass with liver metastases, CVA in 2016 with no residuals. History of Any Multi-Drug Resistant Organisms: None Reported Past Surgical History: Orthopedic Surgery Additional Past Surgical History / Comment(s): R hand sx to remove a peice of metal removed, vasectomy Past Anesthesia/Blood Transfusion Reactions: Motion Sickness Additional Past Anesthesia/Blood Transfusion Reaction / Comment(s): clausterphobia Smoking Status: Current every day smoker Additional Past Alcohol Use History / Comment(s): Patient is a smoker of three quarter pack per day and started smoking when he was 12 years of age. He drinks alcohol couple beers per day on the weekend. He denies any illicit drug use. He works an [employer]. - Past Family History Mother Family Medical History: Diabetes Mellitus, Hypertension Additional Family Medical History / Comment(s): Mother was 82 yrs old when she from congestive heart failure. Father Family Medical History: COPD Additional Family Medical History / Comment(s): Father at age 82 from COPD. No history of cancer. Sister(s) Additional Family Medical History / Comment(s): Patient has 2 sisters with no major medical problems. Patient does not have any brothers. Patient has 2 sons are healthy. Medications and Allergies Home Medications Medication Instructions Recorded Confirmed Type Ondansetron [Zofran] 4 mg PO Q6H PRN #24 tab 06/18/17 Rx Allergies Allergy/AdvReac Type Severity Reaction Status Date / Time No Known Allergies Allergy Verified 06/17/17 16:13 Physical Exam Vitals: Vital Signs Temp Pulse Pulse Resp BP BP Pulse Ox 06/18/17 06:00 98.3 F 81 16 115/71 94 L 06/17/17 20:40 99.4 F 99 18 137/85 98 06/17/17 20:07 98.7 F 87 18 135/78 99 06/17/17 18:49 90 16 130/81 94 L 06/17/17 16:58 97.8 F 101 H 18 152/95 96 06/17/17 15:12 98.8 F 118 H 20 152/92 96 Intake and Output 06/17/17 06/18/17 06/18/17 22:59 06:59 14:59 Other: Voiding Method Toilet Weight 136.078 kg Gen: This is a morbidly obese 61-year-old male patient. He is in bed and appears to be comfortable and in no acute distress. HEENT: Head is atraumatic, normocephalic. Pupils equal, round. Sclerae is anicteric. NECK: Supple. No JVD. No lymphadenopathy. No thyromegaly. LUNGS: Clear to auscultation. No wheezes or rhonchi. No intercostal retractions. HEART: Regular rate and rhythm. No murmur. ABDOMEN: Soft. Distended, positive ascites Bowel sounds are present. No masses. Generalized mild tenderness. EXTREMITIES: No pedal edema. No calf tenderness. Dorsalis pedis +2 bilaterally. NEUROLOGICAL: Patient is awake, alert and oriented x3. Cranial nerves 2 through 12 are grossly intact. Results CBC & Chem 7: 06/18/17 08:33 06/18/17 08:33 Labs: Abnormal Lab Results - Last 24 Hours (Table) 06/17/17 06/17/17 06/17/17 Range/Units 16:09 16:09 16:47 WBC 14.2 H (3.8-10.6) k/uL RBC (4.30-5.90) m/uL Hct (39.0-53.0) % Neutrophils # 11.7 H (1.3-7.7) k/uL Lymphocytes # 0.8 L (1.0-4.8) k/uL Monocytes # 1.1 H (0-1.0) k/uL PT (9.0-12.0) sec INR (<1.2) Sodium 135 L (137-145) mmol/L Glucose 138 H (74-99) mg/dL Total Bilirubin 3.5 H (0.2-1.3) mg/dL AST 88 H (17-59) U/L ALT 91 H (21-72) U/L Alkaline Phosphatase 390 H (38-126) U/L Total Protein 5.7 L (6.3-8.2) g/dL Albumin 3.1 L (3.5-5.0) g/dL Amylase 170 H (30-110) U/L Lipase 755 H (23-300) U/L Urine Protein 1+ H (Negative) Urine Bilirubin 2+ H (Negative) Calcium Oxalate Crystal Rare H (None) /hpf Hyaline Casts 8 H (0-2) /lpf Urine Mucus Moderate H (None) /hpf 06/18/17 06/18/17 06/18/17 Range/Units 08:33 08:33 08:33 WBC 11.0 H (3.8-10.6) k/uL RBC 5.99 H (4.30-5.90) m/uL Hct 54.8 H (39.0-53.0) % Neutrophils # 8.6 H (1.3-7.7) k/uL Lymphocytes # 0.6 L (1.0-4.8) k/uL Monocytes # (0-1.0) k/uL PT 14.4 H (9.0-12.0) sec INR 1.6 H (<1.2) Sodium 134 L (137-145) mmol/L Glucose (74-99) mg/dL Total Bilirubin 4.1 H (0.2-1.3) mg/dL AST 71 H (17-59) U/L ALT 85 H (21-72) U/L Alkaline Phosphatase 381 H (38-126) U/L Total Protein 5.5 L (6.3-8.2) g/dL Albumin 3.0 L (3.5-5.0) g/dL Amylase (30-110) U/L Lipase (23-300) U/L Urine Protein (Negative) Urine Bilirubin (Negative) Calcium Oxalate Crystal (None) /hpf Hyaline Casts (0-2) /lpf Urine Mucus (None) /hpf Thrombosis Risk Factor Assmnt - DVT/VTE Prophylaxis DVT/VTE Prophylaxis: Mechanical Prophylaxis ordered - Choose All That Apply Each Risk Factor Represents 2 Points: Age 61-74 years Thrombosis Risk Factor Assessment Total Risk Factor Score: 2 Thrombosis Risk Factor Assessment Level: Low Risk Assessment and Plan Plan: 1. Pancreatic mass with metastatic disease to the liver and significant ascites. Consult in place for GI and oncology. Diagnostic paracentesis with fluid testing has been ordered, alphafetoprotein, CA 19-9, CEA, acute hepatitis panel. Continue Zofran as needed for nausea, Protonix, morphine as needed for pain control. Patient has appointment for biopsy for next week and an appointment with Dr. Hayward on July 05. 2. History of stroke with no residuals. Stable. 3. Tobacco use and dependence. Nicotine patch daily. 4. GI prophylaxis. Protonix. 5. DVT prophylaxis. SCDs and JOSE ANTONIO hose. 6. Morbid obesity. Weight loss. Patient will be admitted to the hospital for a minimum of 2 night stay. Discharge plan: return home Impression and plan of care have been directed as dictated by the signing physician. Dagmar Thrasher nurse practitioner acting as scribe for signing physician.
[2017-06-18 16:14] LABS: Appearance,BF Hazy; Nucleated Cells, Body Fluid 160 /uL; RBC, Body Fluid 430 /uL
[2017-06-18 16:18] LABS: Mononuclear WBC,Body Fluid 75 %; Polynuclear WBC,Body Fluid 20 %; Total Cells Counted,Body Fluid 100
[2017-06-18 17:03] LABS: Cancer Antigen 19-9 79.3 U/mL (0.0-34.9)
[2017-06-18 17:47] LABS: Alpha Fetoprotein, Tumor Mkr <1.3 ng/mL (0.0-7.9)
[2017-06-18 21:44] LABS: Hepatitis A Antibody IgM Non-Reactive (Non-Reactive); Hepatitis B Core IgM Non-Reactive (Non-Reactive)
[2017-06-19 01:19] LABS: Total Protein, Body Fluid 1917 mg/dL
[2017-06-19] MEDS ORDERED: PANTOPRAZOLE 40 MG TABLET PO SCH (07:30)
--- NOTE | 2017-06-29 16:57 | CDI ---
Last Revision, January 2017 Documentation Clarification Form Date: 06/29/17 From: Xuan Aviles Phone: If you have a question regarding this query, please contact Christie Magaña at [phone] between 8am and 5pm. Admit Date: 06/17/2017 5:16:00 PM Patient Name: Miguelangel Marie Visit Number: [id number] Discharge Date: 06/18/17 ATTENTION: The Clinical Documentation Specialists (CDI) and [facility] Coding Staff appreciate your assistance in clarifying documentation. Please respond to the clarification below the line at the bottom and electronically sign. The CDI & [facility] Coding staff will review the response and follow-up if needed. Please note: Queries are made part of the Legal Health Record. If you have any questions, please contact the author of this message via ITS. Dr. Enedina Saldaña Ascites is documented in the H&P, ED note and consult note. Patient history/risk factors: Patient has a history of pancreatic cancer with metastasis to the liver. Clinical Indicators: Massive ascites. Radiology findings:CT scan showed massive ascietes. Treatment: Paracentesis. Consults: Kailee Woodson documented ascites suspicious for malignancy. PAP Stain: Peritoneal fluid positive for malignant cells consistent with metastatic adenocarcinoma. In your professional opinion, can you please clarify the type of ascites? Malignant Other, please specify Unable to determine malignant MTDD
== END 2017-06-18 14:35 | disposition home or self-care (01) | DRG 436 ==
LOC: EC 15:05 → 4MS4W 17:16
PROVIDERS: ADMIT Internal Medicine; ATTEND Internal Medicine
PROC: 0W9G3ZX Drainage of Peritoneal Cavity, Percutaneous Approach, Diagnostic (ICD-10-PCS; principal; 2017-06-18)
DX: C78.7 Secondary malignant neoplasm of liver and intrahepatic bile duct (principal); D68.9 Coagulation defect, unspecified; C25.9 Malignant neoplasm of pancreas, unspecified; R18.0 Malignant ascites; Z68.41 Body mass index [BMI] 40.0-44.9, adult; D72.829 Elevated white blood cell count, unspecified; E66.01 Morbid (severe) obesity due to excess calories; F17.210 Nicotine dependence, cigarettes, uncomplicated; Z86.73 Personal history of transient ischemic attack (TIA), and cerebral infarction without residual deficits; Z83.3 Family history of diabetes mellitus; Z82.5 Family history of asthma and other chronic lower respiratory diseases; Z82.49 Family history of ischemic heart disease and other diseases of the circulatory system
CPT/HCPCS: 36415; 49083; 74022; 80053; 80074; 81001; 82042; 82105; 82150; 82378; 82945; 83605; 83615; 83690; 83735; 84100; 84157; 84484; 85025; 85610; 86301; 87070; 87075; 87205; 88108; 88305; 88341; 88342; 89050; 96374; 96375; 99285

== ENCOUNTER 2017-06-19 19:50 | Emergency (ER) | payer BC ==
[2017-06-19] MEDS ORDERED: MORPHINE SULFATE 4 MG/ML SYRINGE IVP STA (20:55)
[2017-06-19] MEDS ORDERED: SODIUM CHLORIDE 0.9% 500 ML IV STA (20:55)
[2017-06-19] MEDS ORDERED: SODIUM CHLORIDE 0.9% 1,000 ML IV STA (20:55)
--- NOTE | 2017-06-19 21:09 | ED ---
General Adult HPI - General Chief complaint: Abdominal Pain Stated complaint: Abd pain Time Seen by Provider: 06/19/17 20:03 Source: patient, family, RN notes reviewed, old records reviewed Mode of arrival: wheelchair Limitations: physical limitation - History of Present Illness Initial comments: Chief complaint and history of present illness this is a 61-year-old male here with a complaint of abdominal discomfort no bowel movement for several days to week. The patient was recently diagnosed with ascites with probable metastatic disease to the liver. Also 5 cm mass on atenolol of the pancreas. Several days ago he had tears and T-System remove as much ascitic fluid as possible. The patient reports it feels as though it's all returned if not more. He states he knows little bit of blood when he tried to have a bowel movement today he states his last normal bowel movement was over 7 days ago. No significant change in appetite. He the same which is afternoon. - Related Data Previous Rx's Medication Instructions Recorded Ondansetron [Zofran] 4 mg PO Q6H PRN #24 tab 06/18/17 Allergies Allergy/AdvReac Type Severity Reaction Status Date / Time No Known Allergies Allergy Verified 06/19/17 19:56 Review of Systems ROS Statement: Those systems with pertinent positive or pertinent negative responses have been documented in the HPI. Review of systems. The patient denying any headache chest pain he does report he feels somewhat short of breath when he lays flat and the abdomen which is read large pushes against the diaphragm. Family reports she's only had a large abdomen was not noted to them that was acutely enlarged lately. But the patient did come in with abdominal discomfort had a CAT scan which did reveal the findings of pancreatic mass and probable metastatic spread to the liver. The patient has appointments follow-up with oncology. He is here tonight because of increasing abdominal girth and no bowel movement and a small amount of blood per rectum when he tried hard to push. All systems are reviewed. Past medical problems significant for TIA 2 years ago shingles was left forearm 10 years ago. He's had hand surgery. Vasectomy. Patient denies any other significant medical problems other than those discovered just recently by CAT scan as noted above. He does smoke and drinks alcohol socially. ROS Other: All systems not noted in ROS Statement are negative. Past Medical History Past Medical History: CVA/TIA Additional Past Medical History / Comment(s): Shingles left forearm, CONCUSSIONS (FOOTBALL), pancreatic mass with liver metastases, CVA in 2016 with no residuals. History of Any Multi-Drug Resistant Organisms: None Reported Past Surgical History: Orthopedic Surgery Additional Past Surgical History / Comment(s): R hand sx to remove a peice of metal removed, vasectomy Past Anesthesia/Blood Transfusion Reactions: Motion Sickness Additional Past Anesthesia/Blood Transfusion Reaction / Comment(s): clausterphobia Past Psychological History: No Psychological Hx Reported Smoking Status: Current every day smoker Past Alcohol Use History: None Reported Past Drug Use History: None Reported - Past Family History Mother Family Medical History: Diabetes Mellitus, Hypertension Additional Family Medical History / Comment(s): Mother was 82 yrs old when she from congestive heart failure. Father Family Medical History: COPD Additional Family Medical History / Comment(s): Father at age 82 from COPD. No history of cancer. Sister(s) Additional Family Medical History / Comment(s): Patient has 2 sisters with no major medical problems. Patient does not have any brothers. Patient has 2 sons are healthy. General Exam - General Exam Comments Initial Comments: General: The patient is awake and alert, here with a complaint of no bowel movement for 7 days. Small amount of blood when he tried to have bowel movements per rectum. Also his sensation of reaccumulation of the ascites which she had removed just 2 days ago. No signs shows temperature 98.6 pulse 108 respiratory rate 18 pulse ox 95% room air blood pressure 128/77 Eye: Pupils are equal, round and reactive to light, extra-ocular movements are intact ; there is normal conjunctiva bilaterally. No signs of icterus. Ears, nose, mouth and throat: There are moist mucous membranes and no oral lesions. Neck: The neck is supple, there is no tenderness . Cardiovascular: There is a regular rate and rhythm. No murmur, rub or gallop is appreciated. Respiratory: Lungs are clear to auscultation, respirations are non-labored, breath sounds are equal. No wheezes, stridor, rales, or rhonchi. Gastrointestinal: Patient has a large abdomen. Recent leave diagnosed with a large amount of ascites he did have paracentesis for the same problem. Also recently diagnosed with a mass on the tail of the pancreas with possible metastatic spread to the liver. Appetite good. No nausea no vomiting. Examination found no masses but there is a external hemorrhoid that had bled. We discussed treatment. Patient also have an enema. He was taking Capron for pain. He was told that this will increase her risk of constipation. Back: There is no tenderness to palpation in the midline. There is no obvious deformity. No rashes noted. Musculoskeletal: Normal ROM, no tenderness, chronically swollen legs. Positive pitting edema. Neurological: No neuro deficits Skin: Skin is warm and dry and no rashes or lesions are noted. Psychiatric: Cooperative, Limitations: physical limitation Course Vital Signs 06/19/17 06/19/17 06/19/17 19:53 21:49 23:08 Temperature 98.6 F 97.5 F L 96.8 F L Pulse Rate 108 H 92 83 Respiratory 18 16 16 Rate Blood Pressure 128/77 117/68 100/58 O2 Sat by Pulse 95 96 96 Oximetry 06/19/17 23:16 Temperature Pulse Rate Respiratory Rate Blood Pressure 139/84 O2 Sat by Pulse Oximetry Medical Decision Making - Medical Decision Making Medical decision making; a 61-year-old male here with family. The patient was recently diagnosed with a large mass on the tail of his pancreas and possible metastatic lesions in the liver. He also recently had a paracentesis for ascites. He feels as though the fluids reaccumulated and has increased abdominal discomfort. Also complains of some blood per rectum. The patient's current labs show white count of 17,000 hemoglobin 17.7 with hematocrit of 55, platelets 187, INR 1.8. Potassium 5.4 with a BUN 23 creatinine 1.23 the GFR 63. Total bilirubin is 5.1 AST ALT elevated amylase 126 lipase 413. Urine shows 2 reds and 27 whites. X-ray of the abdomen was done reviewed radiologist his overall impression is overall nonobstructive bowel gas pattern. As read by Dr. Lopez The patient was given a Therevac enema and emergency room. Did have a small amount states he feels though he cannot have more. He was advised to use Metamucil at home. Increase fluid intake. Use fleets enemas as needed. He'll follow-up with oncology. He develops shortness of breath or significant the more swelling from his abdomen he is return emergency room. Advised to minimize his opiate use to control the pain as this will increase the risk of constipation. - Lab Data Result diagrams: 06/19/17 20:11 06/19/17 20:11 Lab Results 06/19/17 06/19/17 06/19/17 Range/Units 20:11 20:11 20:11 WBC 17.0 H (3.8-10.6) k/uL RBC 6.13 H (4.30-5.90) m/uL Hgb 17.7 H (13.0-17.5) gm/dL Hct 55.4 H (39.0-53.0) % MCV 90.4 (80.0-100.0) fL MCH 28.9 (25.0-35.0) pg MCHC 32.0 (31.0-37.0) g/dL RDW 13.7 (11.5-15.5) % Plt Count 187 (150-450) k/uL Neutrophils % 89 % Lymphocytes % 2 % Monocytes % 7 % Eosinophils % 2 % Basophils % 0 % Neutrophils # 15.0 H (1.3-7.7) k/uL Lymphocytes # 0.3 L (1.0-4.8) k/uL Monocytes # 1.2 H (0-1.0) k/uL Eosinophils # 0.3 (0-0.7) k/uL Basophils # 0.1 (0-0.2) k/uL PT (9.0-12.0) sec INR (<1.2) Sodium 131 L (137-145) mmol/L Potassium 5.4 H (3.5-5.1) mmol/L Chloride 97 L (98-107) mmol/L Carbon Dioxide 23 (22-30) mmol/L Anion Gap 11 mmol/L BUN 23 H (9-20) mg/dL Creatinine 1.23 (0.66-1.25) mg/dL Est GFR (CKD-EPI)AfAm 73 (>60 ml/min/1.73 sqM) Est GFR (CKD-EPI)NonAf 63 (>60 ml/min/1.73 sqM) Glucose 133 H (74-99) mg/dL Plasma Lactic Acid Leonel 1.8 (0.7-2.0) mmol/L Calcium 9.2 (8.4-10.2) mg/dL Total Bilirubin 5.1 H (0.2-1.3) mg/dL AST 104 H (17-59) U/L ALT 107 H (21-72) U/L Alkaline Phosphatase 497 H (38-126) U/L Total Protein 5.5 L (6.3-8.2) g/dL Albumin 3.0 L (3.5-5.0) g/dL Amylase 126 H (30-110) U/L Lipase 413 H (23-300) U/L Urine Color Urine Appearance (Clear) Urine pH (5.0-8.0) Ur Specific [place] (1.001-1.035) Urine Protein (Negative) Urine Glucose (UA) (Negative) Urine Ketones (Negative) Urine Blood (Negative) Urine Nitrite (Negative) Urine Bilirubin (Negative) Urine Urobilinogen (<2.0) mg/dL Ur Leukocyte Esterase (Negative) Urine RBC (0-5) /hpf Urine WBC (0-5) /hpf Ur Squamous Epith Cells (0-4) /hpf Calcium Oxalate Crystal (None) /hpf Amorphous Sediment (None) /hpf Urine Bacteria (None) /hpf Hyaline Casts (0-2) /lpf Granular Casts (0) /lpf Urine Mucus (None) /hpf 06/19/17 06/19/17 Range/Units 20:11 21:25 WBC (3.8-10.6) k/uL RBC (4.30-5.90) m/uL Hgb (13.0-17.5) gm/dL Hct (39.0-53.0) % MCV (80.0-100.0) fL MCH (25.0-35.0) pg MCHC (31.0-37.0) g/dL RDW (11.5-15.5) % Plt Count (150-450) k/uL Neutrophils % % Lymphocytes % % Monocytes % % Eosinophils % % Basophils % % Neutrophils # (1.3-7.7) k/uL Lymphocytes # (1.0-4.8) k/uL Monocytes # (0-1.0) k/uL Eosinophils # (0-0.7) k/uL Basophils # (0-0.2) k/uL PT 16.3 H (9.0-12.0) sec INR 1.8 H (<1.2) Sodium (137-145) mmol/L Potassium (3.5-5.1) mmol/L Chloride (98-107) mmol/L Carbon Dioxide (22-30) mmol/L Anion Gap mmol/L BUN (9-20) mg/dL Creatinine (0.66-1.25) mg/dL Est GFR (CKD-EPI)AfAm (>60 ml/min/1.73 sqM) Est GFR (CKD-EPI)NonAf (>60 ml/min/1.73 sqM) Glucose (74-99) mg/dL Plasma Lactic Acid Leonel (0.7-2.0) mmol/L Calcium (8.4-10.2) mg/dL Total Bilirubin (0.2-1.3) mg/dL AST (17-59) U/L ALT (21-72) U/L Alkaline Phosphatase (38-126) U/L Total Protein (6.3-8.2) g/dL Albumin (3.5-5.0) g/dL Amylase (30-110) U/L Lipase (23-300) U/L Urine Color Dark Brown Urine Appearance Turbid (Clear) Urine pH 5.5 (5.0-8.0) Ur Specific [place] 1.024 (1.001-1.035) Urine Protein 1+ H (Negative) Urine Glucose (UA) Negative (Negative) Urine Ketones Trace H (Negative) Urine Blood Negative (Negative) Urine Nitrite Negative (Negative) Urine Bilirubin 2+ H (Negative) Urine Urobilinogen 8.0 (<2.0) mg/dL Ur Leukocyte Esterase Small H (Negative) Urine RBC 2 (0-5) /hpf Urine WBC 27 H (0-5) /hpf Ur Squamous Epith Cells 4 (0-4) /hpf Calcium Oxalate Crystal Many H (None) /hpf Amorphous Sediment Rare H (None) /hpf Urine Bacteria Rare H (None) /hpf Hyaline Casts 115 H (0-2) /lpf Granular Casts 7 (0) /lpf Urine Mucus Many H (None) /hpf Disposition Clinical Impression: Constipation due to pain medication, Ascites, Pancreatic mass Disposition: HOME SELF-CARE Condition: Stable Instructions: Constipation (ED), High Fiber Diet (ED), Fleet Enema (ED) Additional Instructions: Increase oral intake. Use Metamucil, fleets enemas, Dulcolax suppositories. Decrease pain medication use in the form of narcotics as this will increase risk of constipation. Follow-up family physician return emergency room as needed Is patient prescribed a controlled substance at d/c from ED?: No Referrals: Hang Young MD [Primary Care Provider] - 1-2 days Time of Disposition: 00:15
[2017-06-19 21:17] LABS: INR 1.8 (<1.2); Prothrombin Time 16.3 sec (9.0-12.0)
[2017-06-19 21:22] LABS: Calcium 9.2 mg/dL (8.4-10.2); Potassium 5.4 mmol/L (3.5-5.1); Total Bilirubin 5.1 mg/dL (0.2-1.3); Total Protein 5.5 g/dL (6.3-8.2)
[2017-06-19 21:23] LABS: Basophils # (A) 0.1 k/uL (0-0.2); Basophils % (A) 0 %; Eosinophils # (A) 0.3 k/uL (0-0.7); Eosinophils % (A) 2 %; HCT 55.4 % (39.0-53.0); HGB 17.7 gm/dL (13.0-17.5); Lymphocytes # (A) 0.3 k/uL (1.0-4.8); Lymphocytes % (A) 2 %; MCH 28.9 pg (25.0-35.0); MCV 90.4 fL (80.0-100.0); Mean Platelet Volume 8.3; Monocytes # (A) 1.2 k/uL (0-1.0); Monocytes % (A) 7 %; Neutrophils % (A) 89 %; Platelet Count 187 k/uL (150-450); RBC 6.13 m/uL (4.30-5.90); RDW 13.7 % (11.5-15.5)
--- NOTE | 2017-06-19 21:25 | XR ---
EXAMINATION TYPE: XR abdomen 2V DATE OF EXAM: 06/19/2017 COMPARISON: 06/13/2017 HISTORY: Pain TECHNIQUE: Single supine KUB image of the abdomen is obtained FINDINGS: Small bowel demonstrates no evidence for dilatation or air fluid levels. Gas and fecal material is seen in non-distended colon. No convincing evidence for pneumoperitoneum. No unusual calcifications. The lung bases are clear. The osseous structures are intact. IMPRESSION: 1. Overall nonobstructive bowel gas pattern.
[2017-06-19 21:47] LABS: Amorphous Sediment,Urine Rare /hpf; Appearance,Urine Turbid (Clear); Bacteria,Urine Rare /hpf; Bilirubin,Urine 2+ (Negative); Blood,Urine Negative (Negative); Calcium Oxalate Crystals,Urine Many /hpf; Color,Urine Dark Brown; Glucose,Urine (UA) Negative (Negative); Granular Casts,Urine 7 /lpf (0); Hyaline Casts,Urine 115 /lpf (0-2); Ketones,Urine Trace (Negative); Leukocyte Esterase,Urine Small (Negative); Mucus,Urine Many /hpf; Nitrite,Urine Negative (Negative); PH, Urine 5.5 (5.0-8.0); Protein,Urine 1+ (Negative); RBC,Urine 2 /hpf (0-5); Specific Gravity,Urine 1.024 (1.001-1.035); Squamous Epithelial Cell,Urine 4 /hpf (0-4); WBC,Urine 27 /hpf (0-5)
[2017-06-19 21:51] VITALS: RESP 16
[2017-06-19] MEDS ORDERED: DOCUSATE 283 MG/5 ML ENEMA RECTAL STA ×2 (23:09)
[2017-06-20 00:24] VITALS: BP 130/91; PULSE 95; TEMP 97
== END 2017-06-20 00:27 | disposition home or self-care (01) ==
LOC: EC 19:50
DX: K59.03 Drug induced constipation (principal); T40.605A Adverse effect of unspecified narcotics, initial encounter; R18.8 Other ascites; K64.4 Residual hemorrhoidal skin tags; R74.8 Abnormal levels of other serum enzymes; K86.89 Other specified diseases of pancreas; R60.0 Localized edema; F17.200 Nicotine dependence, unspecified, uncomplicated
CPT/HCPCS: 36415; 80053; 82150; 83605; 83690; 85025; 85610; 81001; 87086; 74019; 99284; 96374; 96361 ×3; J2270

== ENCOUNTER 2017-06-25 08:59 | Day surgery (SDC) | payer BC ==
[2017-06-25 09:39] LABS: Mean Platelet Volume 7.4; Platelet Count 168 k/uL (150-450)
[2017-06-25 09:40] VITALS: TEMP 97.6
[2017-06-25 09:49] LABS: INR 1.7 (<1.2); Prothrombin Time 15.9 sec (9.0-12.0)
[2017-06-25] MEDS ORDERED: LIDOCAINE (PF) 10 MG/ML 5ML AMP SQ STA (10:08)
[2017-06-25 10:26] VITALS: RESP 16
--- NOTE | 2017-06-25 11:33 | US ---
Therapeutic paracentesis. DATE OF EXAM: 06/25/2017 CLINICAL HISTORY: Ascites The procedure was discussed with the patient. The risks, complications, benefits, and alternatives we re discussed and any questions were answered. Informed consent was obtained. The patient was placed s upine on the ultrasound table and prepped and draped in the usual sterile fashion. All elements of maximal barrier technique were utilized. Under ultrasound guidance, access into the right lower quadrant was obtained, via the paracentesis catheter system and direct ultrasound guidanc e. Approximately 7.7 liters of straw-colored fluid was removed. The patient was stable throughout the pr ocedure and remained stable upon discharge from Department of Radiology. IMPRESSION: Successful therapeutic paracentesis under ultrasound guidance.
[2017-06-25 11:36] VITALS: BP 129/89; PULSE 88
== END 2017-06-25 13:17 | disposition home or self-care (01) ==
LOC: RADPROMAIN 08:59
PROVIDERS: ATTEND Internal Medicine Hematology & Oncology
DX: R18.8 Other ascites (principal); R16.0 Hepatomegaly, not elsewhere classified
CPT/HCPCS: 82565; 85049; 85610; 36415; 49083; J2001

== ENCOUNTER → 2017-06-25 | Outpatient (CLI) | payer BC ==
--- NOTE | 2017-06-25 17:28 | CT ---
EXAMINATION TYPE: CT chest w con DATE OF EXAM: 06/25/2017 COMPARISON: NONE HISTORY: R/O cancer. Disseminated malignancy. Metastatic disease. CT DLP: 754 mGycm Automated exposure control for dose reduction was used. CONTRAST: CT scan of the chest is performed with IV Contrast, patient injected with 100 mL of Isovue 300. FINDINGS: The lungs are clear of infiltrate. There is no evidence of a pulmonary mass. I see no mediastinal robert nopathy. There are no hilar masses. There is no pericardial effusion. Heart size is normal. There are numerous hypodense areas throughout the liver. This is consistent with diffuse metastatic disease. T here is ascites. There are spondylotic changes in the thoracic spine. IMPRESSION: Negative CT scan of the chest. No evidence of malignancy within the chest.
== END | disposition home or self-care (01) ==
LOC: RADCTMAIN 15:58
PROVIDERS: ATTEND Internal Medicine Hematology & Oncology
DX: C80.0 Disseminated malignant neoplasm, unspecified (principal)
CPT/HCPCS: 82565; 84520; 71260; 36415; Q9967

== ENCOUNTER 2017-06-28 09:37 | Inpatient (IN) | payer BC ==
[2017-06-28 10:16] VITALS: BMI 39.6
[2017-06-28] MEDS ORDERED: ONDANSETRON 4 MG TAB PO PRN (13:46)
[2017-06-28 14:28] LABS: Basophils % (A) 0 %; Eosinophils # (A) 0.3 k/uL (0-0.7); Eosinophils % (A) 2 %; HGB 18.3 gm/dL (13.0-17.5); Lymphocytes # (A) 0.7 k/uL (1.0-4.8); Lymphocytes % (A) 4 %; MCH 29.2 pg (25.0-35.0); MCHC 32.4 g/dL (31.0-37.0); Mean Platelet Volume 7.4; Monocytes # (A) 1.4 k/uL (0-1.0); Monocytes % (A) 7 %; Neutrophils # (A) 16.2 k/uL (1.3-7.7); Neutrophils % (A) 87 %; Platelet Count 145 k/uL (150-450); RBC 6.28 m/uL (4.30-5.90); RDW 14.6 % (11.5-15.5); WBC 18.7 k/uL (3.8-10.6)
[2017-06-28 14:37] LABS: HCT 56.6 % (39.0-53.0)
[2017-06-28 14:38] LABS: Albumin 2.9 g/dL (3.5-5.0); Total Bilirubin 12.3 mg/dL (0.2-1.3); Total Protein 5.6 g/dL (6.3-8.2)
[2017-06-28 14:42] LABS: Potassium 6.2 mmol/L (3.5-5.1)
[2017-06-28] MEDS: NICOTINE 21MG/24HR PATCH TRANSDERM SCH (14:57)
[2017-06-28] MEDS: LACTULOSE 20 GM/30 ML CUP PO SCH ×2 (14:57→20:02)
[2017-06-28] MEDS: HYDROcodone/APAP 5-325MG 1 EACH TAB PO PRN ×2 (14:59→20:00)
[2017-06-28] MEDS ORDERED: SODIUM POLYSTYRENE SULFONATE 15 GM/60 ML BOTTLE PO STA (15:15)
--- NOTE | 2017-06-28 15:23 | P.HPIM ---
History of Present Illness H&P Date: 06/28/17 Chief Complaint: coagulaopahty, abdominal distention , ascitis male patient of Dr. Young with past medical history of obesity, 6 CVA, shingles, tobacco abuse, recently diagnosed metastatic disease with unknown primary with multiple liver mass and pancreatic mass at the pancreatic tail and scheduled for liver biopsy on 06/29. Patient was recently admitted on for abdominal distention and weakness. He underwent CT abdomen previously on 06/13 which suggested large ascites, hyperdense lesion on the liver measuring 4 cm without bile duct dilation consistent with metastatic disease there was a 5 cm mass in the deal of the pancreas suspicious for cancer. Patient underwent last paracentesis 4 days ago and had 2 paracentesis so far, 9.2 L removed during the first paracentesis is an 7 L removed during the second. He does complain of abdominal distention and lower extremity edema. He denies any nausea, vomiting. It is lactulose for regular bowel movements. INR today was 2. Liver biopsy was canceled. Vitamin K 5 mg given. Repeat INR tomorrow for possible liver biopsy. Review of Systems Constitutional: Denies chills, Denies fever, Denies lethargy, Denies malaise, Denies poor appetite, Denies weakness, Denies weight loss Eyes: denies decreased vision, denies diplopia, denies discharge, denies pain Ears: deny: decreased hearing Ears, nose, mouth and throat: Denies dental pain, Denies headache, Denies nasal discharge, Denies nose pain Cardiovascular: Denies chest pain, Denies decreased exercise tolerance, Denies edema, Denies high blood pressure, Denies irregular heart beat, Denies palpitations, Denies paroxysmal nocturnal dyspnea, Denies rapid heart beat, Denies shortness of breath Respiratory: Denies congestion, Denies cough, Denies cough with sputum, Denies dyspnea, Denies home oxygen, Denies wheezing Gastrointestinal: Endorses abdominal pain and distention, Denies change in bowel habits, Denies coffee ground emesis, Denies early satiety, Denies excessive gas, Denies heartburn, Denies hematemesis, Denies hematochezia, Denies loss of appetite, Denies nausea, Denies vomiting Genitourinary: Denies dysuria, Denies flank pain, Denies kidney stones, Denies menorrhagia, Denies urgency, Denies urinary frequency Musculoskeletal: Denies gait dysfunction, Denies limitation of motion, Denies morning stiffness, Denies muscle cramps Integumentary: Denies rash, Denies wounds, Denies brittle nails, Denies change in hair/nails, Denies darkening of skin Neurological: Denies balance difficulties, Denies change in speech, Denies double vision, Denies gait dysfunction, Denies loss of vision, Denies motor disturbance, Denies numbness, Denies paralysis, Denies paresthesias, Denies seizures Psychiatric: Denies anxiety, Denies depression Endocrine: Denies excessive sweating, Denies excessive thirst, Denies high blood sugars, Denies palpitations Hematologic/Lymphatic: Denies easy bruising, Denies lymphadenopathy Past Medical History Past Medical History: CVA/TIA Additional Past Medical History / Comment(s): Shingles left forearm, CONCUSSIONS (FOOTBALL), pancreatic mass with liver metastases, CVA in 2016 with no residuals. History of Any Multi-Drug Resistant Organisms: None Reported Past Surgical History: Orthopedic Surgery Additional Past Surgical History / Comment(s): R hand sx to remove a peice of metal removed, vasectomy Past Anesthesia/Blood Transfusion Reactions: Motion Sickness Additional Past Anesthesia/Blood Transfusion Reaction / Comment(s): clausterphobia Past Psychological History: No Psychological Hx Reported Additional Psychological History / Comment(s): Pt resides with his spouse. He is independent. Smoking Status: Current every day smoker Past Alcohol Use History: None Reported Additional Past Alcohol Use History / Comment(s): Patient is a smoker of three quarter pack per day and started smoking when he was 12 years of age. He drinks alcohol couple beers per day on the weekend. He denies any illicit drug use. He works an injection molding. Past Drug Use History: None Reported - Past Family History Mother Family Medical History: Diabetes Mellitus, Hypertension Additional Family Medical History / Comment(s): Mother was 82 yrs old when she . Father Family Medical History: COPD Additional Family Medical History / Comment(s): Father is 82 yrs old. Sister(s) Additional Family Medical History / Comment(s): Patient has 2 sisters with no major medical problems. Patient does not have any brothers. Patient has 2 sons are healthy. Medications and Allergies Home Medications Medication Instructions Recorded Confirmed Type Ondansetron [Zofran] 4 mg PO Q6H PRN #24 tab 06/18/17 06/28/17 Rx HYDROcodone/APAP 5-325MG [[place] 1 tab PO TID PRN 06/28/17 06/28/17 History 5-325] Lactulose [Cephulac] 20 gm PO TID 06/28/17 06/28/17 History Allergies Allergy/AdvReac Type Severity Reaction Status Date / Time No Known Allergies Allergy Verified 06/28/17 11:28 Physical Exam Vitals: Vital Signs Temp Pulse Resp BP Pulse Ox 06/28/17 10:00 97.5 F L 86 18 137/91 98 Intake and Output 06/27/17 06/28/17 06/28/17 22:59 06:59 14:59 Other: Weight 118.4 kg - Constitutional General appearance: cooperative, no acute distress, obese - EENT Eyes: anicteric sclerae, PERRLA, normal appearance ENT: hearing grossly normal - Neck Neck: no lymphadenopathy, normal ROM, no other, no rigidity, no stridor, no thyromegaly - Respiratory Respiratory: bilateral: CTA, negative: diminished, dullness, rales, rhonchi - Cardiovascular Rhythm: regular Heart sounds: normal: S1, S2 Abnormal Heart Sounds: no systolic murmur, no diastolic murmur, no rub, no S3 Gallop, no S4 Gallop, no click, peripheral edema in the lower extremity 2+ - Gastrointestinal General gastrointestinal: normal bowel sounds, soft, distended, percussion positive for fluid, tenderness to palpate diffusely - Integumentary Integumentary: no rash - Neurologic Neurologic: CNII-XII intact - Musculoskeletal Musculoskeletal: gait normal, strength equal bilaterally - Psychiatric Psychiatric: A&O x's 3, appropriate affect Results CBC & Chem 7: 06/28/17 14:13 06/28/17 14:13 Thrombosis Risk Factor Assmnt - DVT/VTE Prophylaxis DVT/VTE Prophylaxis: Mechanical Prophylaxis ordered - Choose All That Apply Each Factor Represents 1 point: Obesity (BMI >25) Each Risk Factor Represents 2 Points: Age 61-74 years Thrombosis Risk Factor Assessment Total Risk Factor Score: 3 Thrombosis Risk Factor Assessment Level: Moderate Risk Assessment and Plan Plan: #1 pancreatic mass with metastatic disease to the liver with significant ascites. Liver biopsy scheduled for tomorrow. INR 2. Status post vitamin K today repeat INR tomorrow. Follow up with Dr. Vasquez after liver biopsy. Elevated CA-19-9 9, CEA and normal alpha-fetoprotein suggesting metastatic disease outside liver #2 decompensated liver disease likely secondary to metastatic disease of the liver will stop INR is high albumin is low patient has a meld score of 32 with 52% mortality in 3 months. Lactulose to prevent hepatic encephalopathy #3 ascites secondary to decompensated liver disease. Mild abdominal distention. We'll hold for ultrasound abdomen for now. Last paracentesis 3 days ago. #4 hyponatremia likely secondary to liver failure. Sodium 121. Continue low- sodium and 1500 fluid restriction to stop Lasix 40 IV daily. Nephrology consulted for possible vaptan therapy. #5 tobacco use and dependence nicotine patch daily #6 hyperkalemia status post one dose of kayexalate #7 history of CVA with no residual - stable #8 DVT prophylaxis with SCDs #9 GI prophylaxis with Pepcid 20 mg twice a day 10 code status full code
[2017-06-28] MEDS: FUROSEMIDE 10 MG/ML 4 ML VIAL IV SCH (16:31)
[2017-06-28] MEDS: SODIUM CHLORIDE 0.9% 1,000 ML IV SCH (16:32)
[2017-06-28] MEDS ORDERED: PHYTONADIONE ORAL 5 MG/5 ML ORAL.SYRG PO ONE (20:00)
[2017-06-28 20:05] LABS: Calcium 8.5 mg/dL (8.4-10.2); Potassium 4.9 mmol/L (3.5-5.1)
[2017-06-29 00:29] LABS: Calcium 8.7 mg/dL (8.4-10.2); Potassium 5.1 mmol/L (3.5-5.1)
[2017-06-29] MEDS: HYDROcodone/APAP 5-325MG 1 EACH TAB PO PRN ×2 (03:44→20:23)
[2017-06-29 05:50] LABS: Mean Platelet Volume 7.4; Platelet Count 164 k/uL (150-450)
[2017-06-29 05:56] LABS: Prothrombin Time 18.4 sec (9.0-12.0)
[2017-06-29 05:59] LABS: Albumin 2.8 g/dL (3.5-5.0); Calcium 8.7 mg/dL (8.4-10.2); Potassium 5.5 mmol/L (3.5-5.1); Total Bilirubin 13.6 mg/dL (0.2-1.3); Total Protein 5.5 g/dL (6.3-8.2)
[2017-06-29] MEDS: SODIUM CHLORIDE 0.9% 1,000 ML IV SCH (06:18)
[2017-06-29] MEDS: NICOTINE 21MG/24HR PATCH TRANSDERM SCH (06:44)
[2017-06-29] MEDS: FUROSEMIDE 10 MG/ML 4 ML VIAL IV SCH (09:30)
--- NOTE | 2017-06-29 12:21 | P.GSCN ---
History of Present Illness Consult date: 06/29/17 Reason for Consult: core biopsy liver Requesting physician: Nick Vasquez Past Medical History Past Medical History: CVA/TIA Additional Past Medical History / Comment(s): Shingles left forearm, CONCUSSIONS (FOOTBALL), pancreatic mass with liver metastases, CVA in 2016 with no residuals. History of Any Multi-Drug Resistant Organisms: None Reported Past Surgical History: Orthopedic Surgery Additional Past Surgical History / Comment(s): R hand sx to remove a peice of metal removed, vasectomy Past Anesthesia/Blood Transfusion Reactions: Motion Sickness Additional Past Anesthesia/Blood Transfusion Reaction / Comm: clausterphobia Past Psychological History: No Psychological Hx Reported Additional Psychological History / Comment(s): Pt resides with his spouse. He is independent. Smoking Status: Current every day smoker Past Alcohol Use History: None Reported Additional Past Alcohol Use History / Comment(s): Patient is a smoker of three quarter pack per day and started smoking when he was 12 years of age. He drinks alcohol couple beers per day on the weekend. He denies any illicit drug use. 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 Past Drug Use History: None Reported - Past Family History Mother Family Medical History: Diabetes Mellitus, Hypertension Additional Family Medical History / Comment(s): Mother was 82 yrs old when she . Father Family Medical History: COPD Additional Family Medical History / Comment(s): Father is 82 yrs old. Sister(s) Additional Family Medical History / Comment(s): Patient has 2 sisters with no major medical problems. Patient does not have any brothers. Patient has 2 sons are healthy. Medications and Allergies Home Medications Medication Instructions Recorded Confirmed Type Ondansetron [Zofran] 4 mg PO Q6H PRN #24 tab 06/18/17 06/28/17 Rx HYDROcodone/APAP 5-325MG [[place] 1 tab PO TID PRN 06/28/17 06/28/17 History 5-325] Lactulose [Cephulac] 20 gm PO TID 06/28/17 06/28/17 History Allergies Allergy/AdvReac Type Severity Reaction Status Date / Time No Known Allergies Allergy Verified 06/28/17 11:28 Surgical - Exam Vital Signs Temp Pulse Resp BP Pulse Ox 97.5 F L 86 18 137/91 98 06/28/17 10:00 06/28/17 10:00 06/28/17 10:00 06/28/17 10:00 06/28/17 10:00 Results - Labs 06/29/17 05:25 06/29/17 05:25 Abnormal Lab Results - Last 24 Hours (Table) 06/28/17 06/28/17 06/28/17 Range/Units 14:13 14:13 14:13 WBC 18.7 H (3.8-10.6) k/uL RBC 6.28 H (4.30-5.90) m/uL Hgb 18.3 H (13.0-17.5) gm/dL Hct 56.6 H (39.0-53.0) % Plt Count 145 L (150-450) k/uL Neutrophils # 16.2 H (1.3-7.7) k/uL Lymphocytes # 0.7 L (1.0-4.8) k/uL Monocytes # 1.4 H (0-1.0) k/uL PT (9.0-12.0) sec INR (<1.2) Sodium 121 L (137-145) mmol/L Potassium 6.2 H* (3.5-5.1) mmol/L Chloride 91 L (98-107) mmol/L Carbon Dioxide 21 L (22-30) mmol/L BUN 38 H (9-20) mg/dL Creatinine (0.66-1.25) mg/dL Glucose (74-99) mg/dL Osmolality 265 L (280-301) mosm/kg Total Bilirubin 12.3 H (0.2-1.3) mg/dL AST 166 H (17-59) U/L ALT 203 H (21-72) U/L Alkaline Phosphatase 726 H (38-126) U/L Total Protein 5.6 L (6.3-8.2) g/dL Albumin 2.9 L (3.5-5.0) g/dL Ur Random Sodium (30-90) mmol/L 06/28/17 06/28/17 06/28/17 Range/Units 19:37 21:15 23:44 WBC (3.8-10.6) k/uL RBC (4.30-5.90) m/uL Hgb (13.0-17.5) gm/dL Hct (39.0-53.0) % Plt Count (150-450) k/uL Neutrophils # (1.3-7.7) k/uL Lymphocytes # (1.0-4.8) k/uL Monocytes # (0-1.0) k/uL PT (9.0-12.0) sec INR (<1.2) Sodium 122 L 123 L (137-145) mmol/L Potassium (3.5-5.1) mmol/L Chloride 92 L 93 L (98-107) mmol/L Carbon Dioxide 19 L 19 L (22-30) mmol/L BUN 39 H 40 H (9-20) mg/dL Creatinine (0.66-1.25) mg/dL Glucose 127 H 124 H (74-99) mg/dL Osmolality (280-301) mosm/kg Total Bilirubin (0.2-1.3) mg/dL AST (17-59) U/L ALT (21-72) U/L Alkaline Phosphatase (38-126) U/L Total Protein (6.3-8.2) g/dL Albumin (3.5-5.0) g/dL Ur Random Sodium 15 L (30-90) mmol/L 06/29/17 06/29/17 Range/Units 05:25 05:25 WBC (3.8-10.6) k/uL RBC (4.30-5.90) m/uL Hgb (13.0-17.5) gm/dL Hct (39.0-53.0) % Plt Count (150-450) k/uL Neutrophils # (1.3-7.7) k/uL Lymphocytes # (1.0-4.8) k/uL Monocytes # (0-1.0) k/uL PT 18.4 H (9.0-12.0) sec INR 2.0 H (<1.2) Sodium 122 L (137-145) mmol/L Potassium 5.5 H (3.5-5.1) mmol/L Chloride 92 L (98-107) mmol/L Carbon Dioxide 19 L (22-30) mmol/L BUN 41 H (9-20) mg/dL Creatinine 1.30 H (0.66-1.25) mg/dL Glucose 110 H (74-99) mg/dL Osmolality (280-301) mosm/kg Total Bilirubin 13.6 H (0.2-1.3) mg/dL AST 187 H (17-59) U/L ALT 207 H (21-72) U/L Alkaline Phosphatase 728 H (38-126) U/L Total Protein 5.5 L (6.3-8.2) g/dL Albumin 2.8 L (3.5-5.0) g/dL Ur Random Sodium (30-90) mmol/L Diabetes panel 06/28/17 06/28/17 06/28/17 Range/Units 14:13 19:37 23:44 Sodium 121 L 122 L 123 L (137-145) mmol/L Potassium 6.2 H* 4.9 5.1 (3.5-5.1) mmol/L Chloride 91 L 92 L 93 L (98-107) mmol/L Carbon Dioxide 21 L 19 L 19 L (22-30) mmol/L BUN 38 H 39 H 40 H (9-20) mg/dL Creatinine 1.10 1.20 1.20 (0.66-1.25) mg/dL Glucose 94 127 H 124 H (74-99) mg/dL Calcium 9.0 8.5 8.7 (8.4-10.2) mg/dL AST 166 H (17-59) U/L ALT 203 H (21-72) U/L Alkaline Phosphatase 726 H (38-126) U/L Total Protein 5.6 L (6.3-8.2) g/dL Albumin 2.9 L (3.5-5.0) g/dL 06/29/17 Range/Units 05:25 Sodium 122 L (137-145) mmol/L Potassium 5.5 H (3.5-5.1) mmol/L Chloride 92 L (98-107) mmol/L Carbon Dioxide 19 L (22-30) mmol/L BUN 41 H (9-20) mg/dL Creatinine 1.30 H (0.66-1.25) mg/dL Glucose 110 H (74-99) mg/dL Calcium 8.7 (8.4-10.2) mg/dL AST 187 H (17-59) U/L ALT 207 H (21-72) U/L Alkaline Phosphatase 728 H (38-126) U/L Total Protein 5.5 L (6.3-8.2) g/dL Albumin 2.8 L (3.5-5.0) g/dL Calcium panel 06/28/17 06/28/17 06/28/17 Range/Units 14:13 19:37 23:44 Calcium 9.0 8.5 8.7 (8.4-10.2) mg/dL Albumin 2.9 L (3.5-5.0) g/dL 06/29/17 Range/Units 05:25 Calcium 8.7 (8.4-10.2) mg/dL Albumin 2.8 L (3.5-5.0) g/dL Pituitary panel 06/28/17 06/28/17 06/28/17 Range/Units 14:13 19:37 23:44 Sodium 121 L 122 L 123 L (137-145) mmol/L Potassium 6.2 H* 4.9 5.1 (3.5-5.1) mmol/L Chloride 91 L 92 L 93 L (98-107) mmol/L Carbon Dioxide 21 L 19 L 19 L (22-30) mmol/L BUN 38 H 39 H 40 H (9-20) mg/dL Creatinine 1.10 1.20 1.20 (0.66-1.25) mg/dL Glucose 94 127 H 124 H (74-99) mg/dL Calcium 9.0 8.5 8.7 (8.4-10.2) mg/dL 06/29/17 Range/Units 05:25 Sodium 122 L (137-145) mmol/L Potassium 5.5 H (3.5-5.1) mmol/L Chloride 92 L (98-107) mmol/L Carbon Dioxide 19 L (22-30) mmol/L BUN 41 H (9-20) mg/dL Creatinine 1.30 H (0.66-1.25) mg/dL Glucose 110 H (74-99) mg/dL Calcium 8.7 (8.4-10.2) mg/dL Adrenal panel 06/28/17 06/28/17 06/28/17 Range/Units 14:13 19:37 23:44 Sodium 121 L 122 L 123 L (137-145) mmol/L Potassium 6.2 H* 4.9 5.1 (3.5-5.1) mmol/L Chloride 91 L 92 L 93 L (98-107) mmol/L Carbon Dioxide 21 L 19 L 19 L (22-30) mmol/L BUN 38 H 39 H 40 H (9-20) mg/dL Creatinine 1.10 1.20 1.20 (0.66-1.25) mg/dL Glucose 94 127 H 124 H (74-99) mg/dL Calcium 9.0 8.5 8.7 (8.4-10.2) mg/dL Total Bilirubin 12.3 H (0.2-1.3) mg/dL AST 166 H (17-59) U/L ALT 203 H (21-72) U/L Alkaline Phosphatase 726 H (38-126) U/L Total Protein 5.6 L (6.3-8.2) g/dL Albumin 2.9 L (3.5-5.0) g/dL 06/29/17 Range/Units 05:25 Sodium 122 L (137-145) mmol/L Potassium 5.5 H (3.5-5.1) mmol/L Chloride 92 L (98-107) mmol/L Carbon Dioxide 19 L (22-30) mmol/L BUN 41 H (9-20) mg/dL Creatinine 1.30 H (0.66-1.25) mg/dL Glucose 110 H (74-99) mg/dL Calcium 8.7 (8.4-10.2) mg/dL Total Bilirubin 13.6 H (0.2-1.3) mg/dL AST 187 H (17-59) U/L ALT 207 H (21-72) U/L Alkaline Phosphatase 728 H (38-126) U/L Total Protein 5.5 L (6.3-8.2) g/dL Albumin 2.8 L (3.5-5.0) g/dL Assessment and Plan Assessment: Multiple liver lesions with pancreatic tumor, presumed metastatic disease (1) Coagulopathy Current Visit: No Status: Acute Code(s): D68.9 - COAGULATION DEFECT, UNSPECIFIED SNOMED Code(s): 63292281 Plan: Following discussion with Dr. Vasquez, he confirms that he believes it is safe to go ahead with percutaneous liver core biopsy to diagnose and stage the patient. Patient agrees following discussion of risks, benefits and alternatives to proposed biopsy Time with Patient: Less than 30 (discussed risks and benefits, reviewed current ct scan)
[2017-06-29] MEDS ORDERED: HYDROmorphone 2 MG TAB PO STA (13:31)
[2017-06-29] MEDS: LIDOCAINE 1% INJ 10MG/ML (20 ML MDV) SQ ONE ×2 (14:08→15:36)
--- NOTE | 2017-06-29 16:01 | US ---
EXAMINATION TYPE: US paracentesis abd w/image DATE OF EXAM: 06/29/2017 COMPARISON: NONE HISTORY: Ascites. PROCEDURE: Maximal barrier technique was utilized. The skin overlying a suitable pocket of fluid was localized with ultrasound and the overlying skin was prepped and draped. Ultrasound was utilized with sterile technique. Lidocaine was used for local anesthesia and a skin jackson made with a scalpel. Catheter was advanced under direct ultrasound guidance into a suitable pocket of fluid and approximately 8.3 liter s of yellow fluid were removed. Catheter was withdrawn and hemostasis achieved. There is no immedia te complication; the patient is discharged in stable condition. IMPRESSION: STATUS POST ULTRASOUND GUIDED PARACENTESIS FOR PALLIATION OF ASCITES. THIS PROCEDURE WA S PERFORMED BY THE UNDERSIGNED.
--- NOTE | 2017-06-29 16:01 | US ---
EXAMINATION TYPE: US biopsy liver DATE OF EXAM: 06/29/2017 HISTORY: Liver masses. FINDINGS: Maximal barrier technique was utilized. The skin overlying a suitable path to the patient' s left lobe liver mass was localized with ultrasound and the overlying skin prepped and draped. Ultr asound was utilized with sterile technique. Lidocaine was used for local anesthesia. A skin jackson wa s made with a scalpel. An 18-gauge needle was advanced under direct ultrasound guidance and core spe cimen obtained of the mass. Specimen submitted in formalin to Pathology. Following the procedure, h emostasis achieved and the patient is discharged in stable condition without complication. IMPRESSION:STATUS POST ULTRASOUND GUIDED CORE BIOPSY OF liver MASS, PATHOLOGY IS PENDING. THIS PROCE DURE IS PERFORMED BY THE UNDERSIGNED.
[2017-06-29] MEDS: LACTULOSE 20 GM/30 ML CUP PO SCH ×3 (16:16→23:08)
[2017-06-29] MEDS: SPIRONOLACTONE 25 MG TAB PO SCH (16:16)
[2017-06-30 07:22] VITALS: BP 112/69; RESP 19; TEMP 97.4
[2017-06-30] MEDS: NICOTINE 21MG/24HR PATCH TRANSDERM SCH (07:29)
[2017-06-30] MEDS: HYDROcodone/APAP 5-325MG 1 EACH TAB PO PRN (07:30)
[2017-06-30] MEDS: SPIRONOLACTONE 25 MG TAB PO SCH (07:30)
[2017-06-30] MEDS: FUROSEMIDE 10 MG/ML 4 ML VIAL IV SCH (07:30)
[2017-06-30] MEDS: LACTULOSE 20 GM/30 ML CUP PO SCH (07:30)
[2017-06-30 08:13] LABS: Albumin 2.8 g/dL (3.5-5.0); Calcium 8.6 mg/dL (8.4-10.2); Potassium 5.3 mmol/L (3.5-5.1); Total Protein 5.5 g/dL (6.3-8.2)
[2017-06-30 08:20] LABS: Total Bilirubin 15.8 mg/dL (0.2-1.3)
[2017-06-30 09:07] LABS: INR 1.4 (<1.2); Prothrombin Time 13.4 sec (9.0-12.0)
--- NOTE | 2017-06-30 09:37 | P.CONS ---
History of Present Illness - Reason for Consult Consult date: 06/30/17 Liver failure metastasis Requesting physician: Vane Beal - History of Present Illness 61-year-old gentleman patient of Dr. Hang Young recently hospitalized earlier this month with elevated liver enzymes jaundice T bili at that time was 2.5. CT abdomen and pelvis reported large amount of ascites throughout the abdomen with multiple variable size hypodense lesions throughout the liver measuring up to 4 cm without bile duct dilation consistent with metastatic disease. Additionally low-density 5 cm mass the tail the pancreas was also identified with no evidence of bowel obstruction. He underwent diagnostic therapeutic paracentesis on 06/18/2017 9.2 L removal. Ascitic fluid pathology reported malignant cells consistent with metastatic adenocarcinoma. Primary site of origin in the upper GI or pancreatic biliary track. He underwent a second therapeutic paracentesis 5 days ago was 7.[address] chest negative no evidence of malignancy. Admitted yesterday with worsening jaundice status post ultrasound-guided core biopsy of liver and paracentesis 8 L removal pathology pending. Patient was kept overnight for observation secondary to elevated INR and need for FFP for interventional procedures. LFTs: Total bilirubin 2.5-13.6. AST 71-187. ALT 91-207. AP 344-728. Hepatitis screen nonreactive. BUN 41. Creatinine 1.3. INR 1.6-2.0. Sodium 122. Potassium 5.5. CA-19-9 79.3. AFP less than 1.3. CEA 27.6. Fam feels well without abdominal pain. Tolerating diet. Interesting discharge. Endoscopic history: No history of colonoscopy. No recent EGD. Review of Systems Constitutional: Denies fever, chills, sweats, reports weight gain denies weight loss. HEENT: Negative for migraines, blurred vision or loss, earaches, drainage, tinnitus, oral mucosal lesions, dysphagia, or odynophagia. Cardiac: Negative for chest pain, arrhythmias, or palpitation. Respiratory: Negative for shortness of breath, hemoptysis, cough, or sputum production. Gastrointestinal: See HPI for pertinent findings. Genitourinary: Negative for hematuria, urgency, frequency, polyuria, dysuria, or penile discharge. Musculoskeletal: Negative for muscle aches, swelling, arthritis, and arthralgias. Neurologic: Negative for stroke or TIA. Endocrine: Negative for thyroid problems. Skin: Negative for rash or itching. Psychiatric: Negative history for depression and anxiety Past Medical History Past Medical History: CVA/TIA Additional Past Medical History / Comment(s): Shingles left forearm, CONCUSSIONS (FOOTBALL), pancreatic mass with liver metastases, CVA in 2016 with no residuals. History of Any Multi-Drug Resistant Organisms: None Reported Past Surgical History: Orthopedic Surgery Additional Past Surgical History / Comment(s): R hand sx to remove a peice of metal removed, vasectomy Past Anesthesia/Blood Transfusion Reactions: Motion Sickness Additional Past Anesthesia/Blood Transfusion Reaction / Comm: clausterphobia Past Psychological History: No Psychological Hx Reported Additional Psychological History / Comment(s): Pt resides with his spouse. He is independent. Smoking Status: Current every day smoker Past Alcohol Use History: None Reported Additional Past Alcohol Use History / Comment(s): Patient is a smoker of three quarter pack per day and started smoking when he was 12 years of age. He drinks alcohol couple beers per day on the weekend. He denies any illicit drug use. 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 Past Drug Use History: None Reported - Past Family History Mother Family Medical History: Diabetes Mellitus, Hypertension Additional Family Medical History / Comment(s): Mother was 82 yrs old when she . Father Family Medical History: COPD Additional Family Medical History / Comment(s): Father is 82 yrs old. Sister(s) Additional Family Medical History / Comment(s): Patient has 2 sisters with no major medical problems. Patient does not have any brothers. Patient has 2 sons are healthy. Medications and Allergies Home Medications Medication Instructions Recorded Confirmed Type Ondansetron [Zofran] 4 mg PO Q6H PRN #24 tab 06/18/17 06/28/17 Rx HYDROcodone/APAP 5-325MG [[place] 1 tab PO TID PRN 06/28/17 06/28/17 History 5-325] Lactulose [Cephulac] 20 gm PO TID 06/28/17 06/28/17 History Allergies Allergy/AdvReac Type Severity Reaction Status Date / Time No Known Allergies Allergy Verified 06/28/17 11:28 Physical Exam Vitals: Vital Signs Temp Pulse Pulse Pulse Pulse Resp BP 06/30/17 07:00 97.4 F L 96 19 06/29/17 23:00 98.6 F 84 20 05/15/18 19:25 87 16 0515/18 18:25 90 16 0515/18 17:56 97.0 F L 90 16 137/81 0515/18 17:55 83 16 0515/18 17:25 84 0515/18 17:10 84 0515/18 16:55 83 0515/18 16:40 83 0515/18 16:26 97.9 F 85 14 0515/18 15:59 98.0 F 85 16 132/85 0515/18 15:29 97.8 F 89 16 123/84 0515/18 15:19 98 F 88 16 130/88 1518 15:06 98 F 83 16 135/78 1518 14:55 87 16 0515/18 14:32 97.8 F 82 16 119/75 0515/18 14:02 98.4 F 89 16 129/93 06/29/17 13:52 98.0 F 92 16 122/80 06/29/17 13:43 98 F 90 16 104/63 18 13:27 89 16 051518 07:56 97.6 F 83 16 BP BP Pulse Ox 06/30/17 07:00 112/69 97 18 23:00 102/69 94 L 18 19:25 124/78 95 15/18 18:25 141/83 94 L 1518 17:56 18 17:55 130/79 1518 17:25 143/84 96 1518 17:10 128/74 97 1518 16:55 126/72 96 15/18 16:40 120/71 97 0515/18 16:26 135/85 95 1518 15:59 051518 15:29 051518 15:19 051518 15:06 051518 14:55 132/78 97 1518 14:32 0515 14:02 06/29/17 13:52 98 06/29/17 13:43 93 L 06/29/17 13:27 115/77 98 15/18 07:56 102/64 97 Intake and Output 06/29/17 06/30/17 06/30/17 22:59 06:59 14:59 Intake Total 645 200 Balance 645 200 Intake: Oral 100 200 Blood Product 545 Ffp 24 Cpd Unit 340 [id number] Ffp 24 Pher Acda Cnt3 205 Unit [id number] Other: # Voids 2 General appearance: The patient is alert, oriented, in no acute distress. Jaundice. HET: Head is normocephalic and atraumatic. Pupils are equal and reactive. Sclerae icterus. Oropharynx is clear without lesions. Neck: Supple without lymphadenopathy. Trachea midline. Heart: S1 S2. Regular rate and rhythm. Lungs: No crackles or wheezes are heard. Abdomen: Soft, distended mild ascites with bowel sounds. Puncture sites without bleeding. No peritoneal signs. No palpable organomegaly or masses. Extremities: +1/+2 lower extremity edema. Neurological: No focal deficits. Strength and sensation are grossly intact. Results CBC & Chem 7: 06/29/17 05:25 06/30/17 07:39 Assessment and Plan (1) Jaundice Narrative/Plan: 61-year-old male admitted with worsening jaundice recent abdominal imaging reporting liver and pancreatic mass status post diagnostic paracentesis and core liver biopsy ascitic fluid indicating metastatic adenocarcinoma consistent with primary upper GI pancreatobiliary track, core liver biopsy pathology pending. Primary unknown at this time. Current Visit: No Status: Acute Code(s): R17 - UNSPECIFIED JAUNDICE SNOMED Code(s): 28232637 (2) Elevated liver enzymes Narrative/Plan: Secondary to malignancy Current Visit: No Status: Acute Code(s): R74.8 - ABNORMAL LEVELS OF OTHER SERUM ENZYMES SNOMED Code(s): 127476091 (3) Metastatic disease Current Visit: Yes Status: Acute Code(s): C79.9 - SECONDARY MALIGNANT NEOPLASM OF UNSPECIFIED SITE SNOMED Code(s): 847184998 (4) Liver mass Current Visit: No Status: Acute Code(s): R16.0 - HEPATOMEGALY, NOT ELSEWHERE CLASSIFIED SNOMED Code(s): 262833158 (5) Pancreatic mass Current Visit: No Status: Acute Code(s): K86.9 - DISEASE OF PANCREAS, UNSPECIFIED SNOMED Code(s): 209568951 (6) Coagulopathy Current Visit: No Status: Acute Code(s): D68.9 - COAGULATION DEFECT, UNSPECIFIED SNOMED Code(s): 44659108 Plan: 1. Supportive measures. Diuretics Aldactone 50 mg daily may increase to twice a day dosing cautious usage of Lasix at this time until creatinine improves. Nephrology has been consulted. Await liver pathology. Discharge per medicine. Patient states he has a follow-up appointment with oncology Wednesday. Thank you for this kind referral and the opportunity to participate in the care of your patient. This consultation was discussed with Dr. Wynn. The impression and plan of care have been directed as dictated.
[2017-06-30 10:59] VITALS: PULSE 89
[2017-06-30] MEDS ORDERED: TOLVAPTAN 15 MG 1/2 TABLET PO ONE (11:06)
--- NOTE | 2017-06-30 11:34 | P.NPCON ---
History of Present Illness - Reason for Consult hyponatremia - History of Present Illness Reason for consultation: Hyponatremia History of present illness: Patient is a 61-year-old male seen in consultation for hyponatremia. Patient's sodium level was 121 on admission and he was started on 0.9 saline. Sodium level did come up to 123 and then subsequently started to drop. Patient underwent paracentesis on June 29 with 8.3 L removed. He also underwent a liver biopsy yesterday. Sodium level this morning is 121. He is currently maintained on Lasix 40 mg IV once daily along with Aldactone 50 mg once daily. He is noted to have a pancreatic mass as well as liver masses for which he underwent a liver biopsy yesterday. Oral intake is good. He admits to good urine output. Denies hematuria or dysuria. Denies any prior history of kidney disease. His creatinine did peak at 1.3 this admission and is down to 1.13 today. Baseline creatinine is near 1. Hemodynamically he stable. He did have bleeding after biopsy yesterday for which she received fresh frozen plasma. INR today is 1.4. Vital signs are stable. General: The patient appeared well nourished and normally developed. HEENT: Head exam is unremarkable. Neck is without jugular venous distension. LUNGS: Lungs are clear to auscultation and percussion. Breath sounds decreased. HEART: Rate and Rhythm are regular. First and second heart sounds normal. No murmurs, rubs or gallops. ABDOMEN: Abdominal exam reveals normal bowel sounds. Moderately distended. EXTREMITITES: No clubbing, cyanosis, or edema. Past Medical History Past Medical History: CVA/TIA Additional Past Medical History / Comment(s): Shingles left forearm, CONCUSSIONS (FOOTBALL), pancreatic mass with liver metastases, CVA in 2016 with no residuals. History of Any Multi-Drug Resistant Organisms: None Reported Past Surgical History: Orthopedic Surgery Additional Past Surgical History / Comment(s): R hand sx to remove a peice of metal removed, vasectomy Past Anesthesia/Blood Transfusion Reactions: Motion Sickness Additional Past Anesthesia/Blood Transfusion Reaction / Comment(s): clausterphobia Past Psychological History: No Psychological Hx Reported Additional Psychological History / Comment(s): Pt resides with his spouse. He is independent. Smoking Status: Current every day smoker Past Alcohol Use History: None Reported Additional Past Alcohol Use History / Comment(s): Patient is a smoker of three quarter pack per day and started smoking when he was 12 years of age. He drinks alcohol couple beers per day on the weekend. He denies any illicit drug use. He works an injection molding. Past Drug Use History: None Reported - Past Family History Mother Family Medical History: Diabetes Mellitus, Hypertension Additional Family Medical History / Comment(s): Mother was 82 yrs old when she . Father Family Medical History: COPD Additional Family Medical History / Comment(s): Father is 82 yrs old. Sister(s) Additional Family Medical History / Comment(s): Patient has 2 sisters with no major medical problems. Patient does not have any brothers. Patient has 2 sons are healthy. Medications and Allergies Home Medications Medication Instructions Recorded Confirmed Type Ondansetron [Zofran] 4 mg PO Q6H PRN #24 tab 06/18/17 06/28/17 Rx HYDROcodone/APAP 5-325MG [[place] 1 tab PO TID PRN 06/28/17 06/28/17 History 5-325] Lactulose [Cephulac] 20 gm PO TID 06/28/17 06/28/17 History Allergies Allergy/AdvReac Type Severity Reaction Status Date / Time No Known Allergies Allergy Verified 06/28/17 11:28 Physical Exam Vitals: Vital Signs Temp Pulse Pulse Pulse Pulse Resp BP 06/30/17 07:50 89 06/30/17 07:00 97.4 F L 96 19 06/29/17 23:00 98.6 F 84 20 06/29/17 19:25 87 16 06/29/17 18:25 90 16 06/29/17 17:56 97.0 F L 90 16 137/81 06/29/17 17:55 83 16 06/29/17 17:25 84 06/29/17 17:10 84 06/29/17 16:55 83 06/29/17 16:40 83 06/29/17 16:26 97.9 F 85 14 06/29/17 15:59 98.0 F 85 16 132/85 06/29/17 15:29 97.8 F 89 16 123/84 06/29/17 15:19 98 F 88 16 130/88 06/29/17 15:06 98 F 83 16 135/78 06/29/17 14:55 87 16 06/29/17 14:32 97.8 F 82 16 119/75 06/29/17 14:02 98.4 F 89 16 129/93 06/29/17 13:52 98.0 F 92 16 122/80 06/29/17 13:43 98 F 90 16 104/63 06/29/17 13:27 89 16 BP BP Pulse Ox 06/30/17 07:50 06/30/17 07:00 112/69 97 06/29/17 23:00 102/69 94 L 06/29/17 19:25 124/78 95 06/29/17 18:25 141/83 94 L 06/29/17 17:56 06/29/17 17:55 130/79 06/29/17 17:25 143/84 96 06/29/17 17:10 128/74 97 06/29/17 16:55 126/72 96 06/29/17 16:40 120/71 97 06/29/17 16:26 135/85 95 06/29/17 15:59 06/29/17 15:29 06/29/17 15:19 06/29/17 15:06 06/29/17 14:55 132/78 97 06/29/17 14:32 06/29/17 14:02 06/29/17 13:52 98 06/29/17 13:43 93 L 06/29/17 13:27 115/77 98 Intake and Output 06/29/17 06/30/17 06/30/17 22:59 06:59 14:59 Intake Total 645 200 240 Balance 645 200 240 Intake: Oral 100 200 240 Blood Product 545 Ffp 24 Cpd Unit 340 [id number] Ffp 24 Pher Acda Cnt3 205 Unit [id number] Other: Voiding Method Toilet # Voids 2 2 Weight 118.4 kg Results - Lab Results Most recent lab results Calcium 8.6 mg/dL (8.4-10.2) 06/30/17 07:39 06/29/17 05:25 06/30/17 07:39 Assessment and Plan Plan: Assessment: 1. Hypervolemic hyponatremia. Sodium level initially improved with normal saline but then dropped. 121 this morning. 2. Pancreatic and liver mass status post liver biopsy on June 29. Concern for malignancy. 3. Hyperkalemia secondary to Aldactone and acute kidney injury. 4. Metabolic acidosis. This is compensatory for underlying respiratory alkalosis from liver cirrhosis. 5. Mild acute kidney injury mostly prerenal from hepatorenal syndrome. Plan: Samsca 15 mg once now. Repeat sodium level at 6 PM today. Monitor potassium level closely. May need to adjust Aldactone. Avoid nephrotoxic agents and hypotensive episodes. Pathology results pending. Check urinalysis and renal uls. Thank you for the consultation. I will continue to follow the patient you during his hospital stay.
[2017-06-30] MEDS ORDERED: SODIUM POLYSTYRENE SULFONATE 15 GM/60 ML BOTTLE PO STA (12:43)
[2017-06-30 13:54] LABS: Appearance,Urine Clear (Clear); Bilirubin,Urine 2+ (Negative); Blood,Urine Negative (Negative); Color,Urine Dark Orange; Glucose,Urine (UA) Negative (Negative); Ketones,Urine Negative (Negative); Leukocyte Esterase,Urine Negative (Negative); Nitrite,Urine Negative (Negative); PH, Urine 5.5 (5.0-8.0); Protein,Urine Negative (Negative); Specific Gravity,Urine 1.013 (1.001-1.035)
--- NOTE | 2017-06-30 14:02 | US ---
EXAMINATION TYPE: US kidneys/renal and bladder DATE OF EXAM: 06/30/2017 COMPARISON: CT 06/13/2017 CLINICAL HISTORY: 61 year-old male acute kidney injury, Known liver masses and ascites. TECHNIQUE: Multiple sonographic images of the kidneys and bladder are obtained. FINDINGS: EXAM MEASUREMENTS: Right Kidney: 9.3 x 5.4 x 4.8 cm Left Kidney: 9.9 x 5.8 x 5.4 cm Right Kidney: No hydronephrosis. Left Kidney: No hydronephrosis. Bladder: wnl as visualized, not fully distended Bilateral Jets seen: Yes Small amount of known ascites visualized in the RUQ Multiple known liver masses. IMPRESSION: No hydronephrosis. No gross abnormality of the partially distended bladder. Known multiple liver masses and small amount of right upper quadrant ascites.
--- NOTE | 2017-07-01 13:33 | P.PN ---
Subjective Progress Note Date: 06/29/[address] Young with past medical history of obesity, 6 CVA, shingles, tobacco abuse, recently diagnosed metastatic disease with unknown primary with multiple liver mass and pancreatic mass at the pancreatic tail and scheduled for liver biopsy on 06/29. Patient was recently admitted on for abdominal distention and weakness. He underwent CT abdomen previously on 06/13 which suggested large ascites, hyperdense lesion on the liver measuring 4 cm without bile duct dilation consistent with metastatic disease there was a 5 cm mass in the deal of the pancreas suspicious for cancer. Patient underwent last paracentesis 4 days ago and had 2 paracentesis so far, 9.2 L removed during the first paracentesis is an 7 L removed during the second. He does complain of abdominal distention and lower extremity edema. He denies any nausea, vomiting. It is lactulose for regular bowel movements. INR today was 2. Liver biopsy was canceled. Vitamin K 5 mg given. Repeat INR tomorrow for possible liver biopsy. 06/29: Repeat lab work shows INR 2.0, platelet count 164, sodium 122, potassium 5.5, chloride 92, CO2 19, BUN 41 and creatinine 1.3. Liver enzymes are all elevated with total bilirubin of 13.6, AST 187, ALT 207, alkaline phosphatase 728. Urine osmolality was 367 and urine sodium 15. Consult has been requested with nephrology. Patient is scheduled for another paracentesis today with interventional radiology. Objective - Vital Signs Vital signs: Vital Signs Temp 98.4 F 06/29/17 14:02 Pulse 89 06/29/17 14:02 Resp 16 06/29/17 14:02 BP 129/93 06/29/17 14:02 Pulse Ox 98 06/29/17 13:52 Intake & Output 06/28/17 06/29/17 06/29/17 18:59 06:59 18:59 Intake Total 100 320 Balance 100 320 Weight 118.4 kg Intake: Intake, IV Titration 320 Amount Sodium Chloride 0.9% 1, 320 000 ml @ 75 mls/hr IV . [id number] GIANCARLO Rx#:[id number] Blood Product 0 Ffp 24 Pher Acda Cnt3 0 Unit [id number] Other 100 Other: # Voids 1 - Exam General appearance: cooperative, no acute distress, obese - EENT Eyes: anicteric sclerae, PERRLA, normal appearance ENT: hearing grossly normal - Neck Neck: no lymphadenopathy, normal ROM, no other, no rigidity, no stridor, no thyromegaly - Respiratory Respiratory: bilateral: CTA, negative: diminished, dullness, rales, rhonchi - Cardiovascular Rhythm: regular Heart sounds: normal: S1, S2 Abnormal Heart Sounds: no systolic murmur, no diastolic murmur, no rub, no S3 Gallop, no S4 Gallop, no click, peripheral edema in the lower extremity 2+ - Gastrointestinal General gastrointestinal: normal bowel sounds, soft, distended, percussion positive for fluid, tenderness to palpate diffusely - Integumentary Integumentary: no rash - Neurologic Neurologic: CNII-XII intact - Musculoskeletal Musculoskeletal: gait normal, strength equal bilaterally - Psychiatric Psychiatric: A&O x's 3, appropriate affect - Labs CBC & Chem 7: 06/29/17 05:25 06/29/17 05:25 Labs: Abnormal Lab Results - Last 24 Hours (Table) 06/28/17 06/28/17 06/28/17 Range/Units 14:13 14:13 14:13 WBC 18.7 H (3.8-10.6) k/uL RBC 6.28 H (4.30-5.90) m/uL Hgb 18.3 H (13.0-17.5) gm/dL Hct 56.6 H (39.0-53.0) % Plt Count 145 L (150-450) k/uL Neutrophils # 16.2 H (1.3-7.7) k/uL Lymphocytes # 0.7 L (1.0-4.8) k/uL Monocytes # 1.4 H (0-1.0) k/uL PT (9.0-12.0) sec INR (<1.2) Sodium 121 L (137-145) mmol/L Potassium 6.2 H* (3.5-5.1) mmol/L Chloride 91 L (98-107) mmol/L Carbon Dioxide 21 L (22-30) mmol/L BUN 38 H (9-20) mg/dL Creatinine (0.66-1.25) mg/dL Glucose (74-99) mg/dL Osmolality 265 L (280-301) mosm/kg Total Bilirubin 12.3 H (0.2-1.3) mg/dL AST 166 H (17-59) U/L ALT 203 H (21-72) U/L Alkaline Phosphatase 726 H (38-126) U/L Total Protein 5.6 L (6.3-8.2) g/dL Albumin 2.9 L (3.5-5.0) g/dL Ur Random Sodium (30-90) mmol/L 06/28/17 06/28/17 06/28/17 Range/Units 19:37 21:15 23:44 WBC (3.8-10.6) k/uL RBC (4.30-5.90) m/uL Hgb (13.0-17.5) gm/dL Hct (39.0-53.0) % Plt Count (150-450) k/uL Neutrophils # (1.3-7.7) k/uL Lymphocytes # (1.0-4.8) k/uL Monocytes # (0-1.0) k/uL PT (9.0-12.0) sec INR (<1.2) Sodium 122 L 123 L (137-145) mmol/L Potassium (3.5-5.1) mmol/L Chloride 92 L 93 L (98-107) mmol/L Carbon Dioxide 19 L 19 L (22-30) mmol/L BUN 39 H 40 H (9-20) mg/dL Creatinine (0.66-1.25) mg/dL Glucose 127 H 124 H (74-99) mg/dL Osmolality (280-301) mosm/kg Total Bilirubin (0.2-1.3) mg/dL AST (17-59) U/L ALT (21-72) U/L Alkaline Phosphatase (38-126) U/L Total Protein (6.3-8.2) g/dL Albumin (3.5-5.0) g/dL Ur Random Sodium 15 L (30-90) mmol/L 06/29/17 06/29/17 Range/Units 05:25 05:25 WBC (3.8-10.6) k/uL RBC (4.30-5.90) m/uL Hgb (13.0-17.5) gm/dL Hct (39.0-53.0) % Plt Count (150-450) k/uL Neutrophils # (1.3-7.7) k/uL Lymphocytes # (1.0-4.8) k/uL Monocytes # (0-1.0) k/uL PT 18.4 H (9.0-12.0) sec INR 2.0 H (<1.2) Sodium 122 L (137-145) mmol/L Potassium 5.5 H (3.5-5.1) mmol/L Chloride 92 L (98-107) mmol/L Carbon Dioxide 19 L (22-30) mmol/L BUN 41 H (9-20) mg/dL Creatinine 1.30 H (0.66-1.25) mg/dL Glucose 110 H (74-99) mg/dL Osmolality (280-301) mosm/kg Total Bilirubin 13.6 H (0.2-1.3) mg/dL AST 187 H (17-59) U/L ALT 207 H (21-72) U/L Alkaline Phosphatase 728 H (38-126) U/L Total Protein 5.5 L (6.3-8.2) g/dL Albumin 2.8 L (3.5-5.0) g/dL Ur Random Sodium (30-90) mmol/L Assessment and Plan Plan: 1 pancreatic mass with metastatic disease to the liver with significant ascites. Liver biopsy scheduled for tomorrow. INR 2. Status post vitamin K today repeat INR tomorrow. Follow up with Dr. Vasquez after liver biopsy. Elevated CA-19-9 9, CEA and normal alpha-fetoprotein suggesting metastatic disease outside liver 2 decompensated liver disease likely secondary to metastatic disease of the liver will stop INR is high albumin is low patient has a meld score of 32 with 52% mortality in 3 months. Lactulose to prevent hepatic encephalopathy 3 ascites secondary to decompensated liver disease. Mild abdominal distention. We'll hold for ultrasound abdomen for now. Last paracentesis 3 days ago. Paracentesis today with interventional radiology. 4 hyponatremia likely secondary to liver failure. Sodium 121. Continue low- sodium and 1500 fluid restriction to stop Lasix 40 IV daily. Nephrology consulted for possible vaptan therapy. 5 tobacco use and dependence nicotine patch daily 6 hyperkalemia status post one dose of kayexalate 7 history of CVA with no residual - stable 8 DVT prophylaxis with SCDs 9 GI prophylaxis with Pepcid 20 mg twice a day 10 code status full code Discharge plan: Return home Impression and plan of care have been directed as dictated by the signing physician. Dagmar Thrasher nurse practitioner acting as scribe for signing physician.
--- NOTE | 2017-07-02 14:52 | P.DS ---
Providers Date of admission: 06/29/17 08:27 Expected date of discharge: 06/30/17 Attending physician: Vane Beal MD Consults: 06/28/17 15:11 Consult Physician Routine Consulting Provider: Shahbaz Diallo Consult Reason/Comments: hyponatremia, vaptan use ? Do you want consulting provider notified?: Yes 06/29/17 14:15 Consult Physician Routine Consulting Provider: Naz Segura Consult Reason/Comments: liver failuresecondary to metastasis Do you want consulting provider notified?: Yes Primary care physician: [facility] Course: male patient of Dr. Young with past medical history of obesity, 6 CVA, shingles, tobacco abuse, recently diagnosed metastatic disease with unknown primary with multiple liver mass and pancreatic mass at the pancreatic tail and scheduled for liver biopsy on 06/29. Patient was recently admitted on for abdominal distention and weakness. He underwent CT abdomen previously on 06/13 which suggested large ascites, hyperdense lesion on the liver measuring 4 cm without bile duct dilation consistent with metastatic disease there was a 5 cm mass in the deal of the pancreas suspicious for cancer. Patient underwent last paracentesis 4 days ago and had 2 paracentesis so far, 9.2 L removed during the first paracentesis is an 7 L removed during the second. He does complain of abdominal distention and lower extremity edema. He denies any nausea, vomiting. It is lactulose for regular bowel movements. INR today was 2. Liver biopsy was canceled. Vitamin K 5 mg given. Repeat INR tomorrow for possible liver biopsy. 06/29: Repeat lab work shows INR 2.0, platelet count 164, sodium 122, potassium 5.5, chloride 92, CO2 19, BUN 41 and creatinine 1.3. Liver enzymes are all elevated with total bilirubin of 13.6, AST 187, ALT 207, alkaline phosphatase 728. Urine osmolality was 367 and urine sodium 15. Consult has been requested with nephrology. Patient is scheduled for another paracentesis today with interventional radiology. 06/30: Patient has been seen by GI with plan to continue Aldactone 50 mg twice daily. Patient underwent liver core biopsy that showed metastatic adenocarcinoma consistent with upper gastrointestinal or pancreatobiliary tract origin. Patient received 1 dose of Samsca per Dr. Diallo. Sodium today was 121 with plan for repeat at 6 PM. Patient and his were anxious for discharge as patient had an appointment tomorrow with Dr. Vasquez at 2 [place] and did not want to miss this. Discussed with patient and his in detail that there is danger of him leaving the hospital due to his low sodium level. The pancreatic cancer does carry a high mortality and overall lab work is deteriorating. Discussed also that hospice may be an option in the next few weeks depending on how patient progresses. Patient will be discharged per his wishes. Renal ultrasound showed no hydronephrosis. No gross abnormality of the partially distended bladder. Known multiple liver masses and small amount of right upper quadrant ascites. Discharge diagnoses: 1 pancreatic mass with metastatic disease to the liver with significant ascites. 2 decompensated liver disease likely secondary to metastatic disease of the liver, meld score of 32 with 52% mortality in 3 months. 3 ascites secondary to decompensated liver disease. 4 hyponatremia likely secondary to liver failure. 5 tobacco use and dependence nicotine patch daily 6 hyperkalemia status post one dose of kayexalate 7 history of CVA with no residual - stable Discharge plan: Return home Impression and plan of care have been directed as dictated by the signing physician. Dagmar Thrasher nurse practitioner acting as scribe for signing physician. Patient Condition at Discharge: Stable Plan - Discharge Summary Discharge Rx Participant: No New Discharge Prescriptions: New Furosemide [Lasix] 40 mg PO BID #60 tablet Nicotine 21Mg/24Hr Patch [Habitrol] 1 patch TRANSDERM DAILY #30 patch Spironolactone [Aldactone] 50 mg PO DAILY #60 tab Continue Ondansetron [Zofran] 4 mg PO Q6H PRN #24 tab PRN Reason: nausea Lactulose [Cephulac] 20 gm PO TID HYDROcodone/APAP 5-325MG [[place] 5-325] 1 tab PO TID PRN PRN Reason: Pain Discharge Medication List Ondansetron [Zofran] 4 mg PO Q6H PRN #24 tab 06/18/17 [Rx] HYDROcodone/APAP 5-325MG [[place] 5-325] 1 tab PO TID PRN 06/28/17 [History] Lactulose [Cephulac] 20 gm PO TID 06/28/17 [History] Furosemide [Lasix] 40 mg PO BID #60 tablet 06/30/17 [Rx] Nicotine 21Mg/24Hr Patch [Habitrol] 1 patch TRANSDERM DAILY #30 patch 06/30/17 [ Rx] Spironolactone [Aldactone] 50 mg PO DAILY #60 tab 06/30/17 [Rx] Follow up Appointment(s)/Referral(s): Nick Vasquez MD [Primary Care Provider] - 07/01/17 2:45 pm (has appointment at 2 pm) Shahbaz Diallo DO [STAFF PHYSICIAN] - 07/02/17 (Office closed at 1 pm, please call for appointment first thing in am) Hang Young MD [REFERRING] - 07/06/17 11:15 am Ambulatory/Diagnostic Orders: Comprehensive Metabolic Panel [LAB.AMB] Location: Determined By Patient Patient Instructions/Handouts: Abdominal Paracentesis (DC), Ascites (DC), Jaundice (DC) Activity/Diet/Wound Care/Special Instructions: No smoking, cessation information provided. Low fat diet. Activity as tolerated Discharge Disposition: HOME SELF-CARE
--- NOTE | 2017-07-06 14:18 | CDI ---
Last Revision, January 2017 Documentation Clarification Form Date: 07/06/2017 12:00:00 AM From: DADA Luo Phone: If you have question, contact Christie Magaña Station Inspector at [phone] Admit Date: 06/29/2017 8:27:00 AM Patient Name: Miguelangel Marie Visit Number: [id number] Discharge Date: 06/30/17 ATTENTION: The Clinical Documentation Specialists (CDI) and [facility] Coding Staff appreciate your assistance in clarifying documentation. Please respond to the clarification below the line at the bottom and electronically sign. The CDI & [facility] Coding staff will review the response and follow-up if needed. Please note: Queries are made part of the Legal Health Record. If you have any questions, please contact the author of this message via ITS. Dr. Vane Beal Patient was admitted to OBS 06/28 1201 for coagulopathy. His admit is changed to IP on 06/28 162, but there is no note that clarifies the admitting diagnosis. Liver biopsy and paracentesis were performed on 06/29. Patient is noted to have a pancreatic mass with metastatic disease to the liver with significant ascites. Further clarification regarding the reason for admission to the inpatient stay is needed for proper reporting purposes. Please clarify the diagnosis that best describes why Mr. Marie was admitted for Inpatient care on this stay. Thank you for your time. Increased drowsiness secondary to _Hyponatremia, iv diuretic for liver failure, further monitoring for deterioration as patient came for a procedure but was found to be in liver failure MTDD
== END 2017-06-30 14:01 | disposition home or self-care (01) | DRG 436 ==
LOC: 3OBS 09:46 → OBSVTOIN 06-29 08:27 → 4MS4W 06-29 13:39
PROVIDERS: ADMIT Internal Medicine; ATTEND Internal Medicine
PROC: 0W9G3ZX Drainage of Peritoneal Cavity, Percutaneous Approach, Diagnostic (ICD-10-PCS; principal; 2017-06-29)
PROC: 0FB23ZX Excision of Left Lobe Liver, Percutaneous Approach, Diagnostic (ICD-10-PCS; 2017-06-29)
PROC: 30233K1 Transfusion of Nonautologous Frozen Plasma into Peripheral Vein, Percutaneous Approach (ICD-10-PCS; 2017-06-29)
DX: C78.7 Secondary malignant neoplasm of liver and intrahepatic bile duct (principal); D68.9 Coagulation defect, unspecified; C25.2 Malignant neoplasm of tail of pancreas; E87.1 Hypo-osmolality and hyponatremia; R18.8 Other ascites; E87.4 Mixed disorder of acid-base balance; N17.9 Acute kidney failure, unspecified; K72.90 Hepatic failure, unspecified without coma; F17.210 Nicotine dependence, cigarettes, uncomplicated; E87.5 Hyperkalemia; T50.0X5A Adverse effect of mineralocorticoids and their antagonists, initial encounter; Z82.49 Family history of ischemic heart disease and other diseases of the circulatory system; Z83.3 Family history of diabetes mellitus; Z82.5 Family history of asthma and other chronic lower respiratory diseases; Z86.73 Personal history of transient ischemic attack (TIA), and cerebral infarction without residual deficits; Z68.39 Body mass index [BMI] 39.0-39.9, adult
CPT/HCPCS: 47000; 49083; 76770; 76942; 80048; 80053; 81003; 83930; 83935; 84300; 85025; 85049; 85610; 86850; 86900; 86901; 88307; 88341; 88342

== ENCOUNTER → 2017-06-28 | Day surgery (SDC) | payer BC ==
[~2017-06-28] MED LIST: MORPHINE SULFATE 4 MG/ML SYRINGE IVP PRN
[2017-06-28 08:49] LABS: Mean Platelet Volume 7.9; Platelet Count 156 k/uL (150-450)
[2017-06-28 08:54] LABS: Prothrombin Time 17.7 sec (9.0-12.0)
[2017-06-28 08:57] VITALS: BP 92/61; PULSE 84; RESP 16; TEMP 97.8
== END ==
LOC: RADPROMAIN 07:59
PROVIDERS: ATTEND Internal Medicine Hematology & Oncology
DX: R16.0 Hepatomegaly, not elsewhere classified (principal); R18.8 Other ascites; Z53.8 Procedure and treatment not carried out for other reasons
CPT/HCPCS: 85049; 85610

== ENCOUNTER 2017-07-01 15:29 | Inpatient (IN) | payer BC ==
[2017-07-01] MEDS ORDERED: LACTULOSE 20 GM/30 ML CUP PO PRN (16:28)
--- NOTE | 2017-07-01 16:44 | P.PN ---
Progress Note - Text Progress Note Date: 07/01/17 Patient was seen today in the office by Dr. Vasquez, results of liver biopsy discussed, metastatic adenocarcinoma of pancreatobiliary origin. Pt is not doing well in general, c/o uncontrolled and progressive abdominal pain, weakness , increasing drowsiness, anorexia. His bilirubin is 18, BUN/Cr elevated. [place] best to admit pt for intractable pain of malignancy and dehydration. Orders written and entered. Dr. Young is PCP and Nephrology consulted. Formal consult in AM. History of present illness: Mr. Marie is a pleasant male who was in his normal state of health, until early May, on 06/13/17 he presented to the emergency department with CC of persistent and progressive LUQ abdominal pain x 3 days, no identified aggravating factors, pain would be temporarily relieved with belching or bowel movement, associated with fevers, sweats, chills, new onset constipation with occasional diarrhea, no nausea or vomiting. 06/13/17 CT AP massive ascites, multiple low density liver masses consistent with metastatic disease, low- density 5 cm mass at the tail of the pancreas. 06/18/17 paracentesis was done with 9.2 L removed, cytology resulted with adenocarcinoma in the fluid, 06/25/17 7.7L removed, liver biopsy 06/29, pt was autoanticoagulated from liver involvement and required vit K, bilirubin was 5.1, Ca19.9 was 79 and CEA was 27. As stated above pt was in office today for f/u and results. Assessment and Plan 1) Intractable pain of malignancy-admit for pain control, pain meds titrated for comfort. Sched and PRN med orders for prevention of narcotic induced constipation. 2) Icybgaeehgo-sspqa-[id number] including disease, pain. IVF ordered, labs daily, encourage oral intake to tolerance 3) Renal dysfunction-Nephrology consulted 4) PCP consult for medical management 5) Hyperbilirubinemia-secondary to malignancy, fluids and labs for monitoring
[2017-07-01] MEDS: SODIUM CHLORIDE 0.9% 1,000 ML IV SCH ×2 (16:54→18:08)
[2017-07-01 17:41] LABS: Albumin 3.1 g/dL (3.5-5.0); Calcium 8.9 mg/dL (8.4-10.2); Potassium 5.2 mmol/L (3.5-5.1); Total Protein 6.1 g/dL (6.3-8.2)
[2017-07-01] MEDS: MORPHINE SULFATE 4 MG/ML SYRINGE IVP PRN ×2 (18:16→22:43)
[2017-07-01] MEDS: SENNOSIDES 8.6 MG TAB PO SCH (21:35)
[2017-07-01] MEDS: traZODone HCL 50 MG TAB PO SCH (21:35)
[2017-07-01] MEDS ORDERED: FUROSEMIDE 10 MG/ML 10 ML VIAL IV STA (23:16)
[2017-07-02] MEDS: MORPHINE SULFATE 4 MG/ML SYRINGE IVP PRN ×5 (04:47→23:09)
[2017-07-02 07:47] LABS: Basophils # (A) 0.1 k/uL (0-0.2); Basophils % (A) 0 %; Eosinophils # (A) 0.2 k/uL (0-0.7); Eosinophils % (A) 1 %; HGB 18.6 gm/dL (13.0-17.5); Lymphocytes # (A) 0.2 k/uL (1.0-4.8); Lymphocytes % (A) 1 %; MCH 28.8 pg (25.0-35.0); MCHC 31.3 g/dL (31.0-37.0); MCV 92.2 fL (80.0-100.0); Mean Platelet Volume 7.4; Monocytes # (A) 1.2 k/uL (0-1.0); Monocytes % (A) 6 %; Neutrophils # (A) 18.7 k/uL (1.3-7.7); Neutrophils % (A) 91 %; Platelet Count 142 k/uL (150-450); RBC 6.44 m/uL (4.30-5.90); RDW 15.2 % (11.5-15.5); WBC 20.5 k/uL (3.8-10.6)
[2017-07-02 07:52] LABS: HCT 59.4 % (39.0-53.0)
[2017-07-02 07:59] LABS: Albumin 2.8 g/dL (3.5-5.0); Calcium 8.4 mg/dL (8.4-10.2); Potassium 5.2 mmol/L (3.5-5.1); Total Protein 5.6 g/dL (6.3-8.2)
[2017-07-02 08:14] LABS: Total Bilirubin 16.2 mg/dL (0.2-1.3)
[2017-07-02 09:26] LABS: Poikilocytosis (M) Present; Target Cells Present; Toxic Granulation Present
[2017-07-02] MEDS ORDERED: FUROSEMIDE 10 MG/ML 10 ML VIAL IV STA (14:11)
--- NOTE | 2017-07-02 14:12 | P.NPCON ---
History of Present Illness - Reason for Consult acute renal failure, hyponatremia - History of Present Illness Reason for consultation: Hyponatremia History of present illness: Patient is a 61-year-old male seen in consultation for hyponatremia. Patient was just discharged from the hospital on June 30 and at that time sodium level was also low at 122. Patient had appointment with oncology yesterday and was subsequently readmitted for dehydration. His sodium level was again 120 on admission and he was started on normal saline at 1 25 mL an hour. Sodium level subsequently dropped to 119 and the fluids were discontinued. He did receive 1 dose of IV Lasix 60 mg last night and sodium level came back up to 120. Patient is noted to have pancreatic cancer with metastasis to the liver. He underwent paracentesis on June 29 with 8.3 L removed as well as a liver biopsy. He scheduled to undergo another paracentesis today. Patient feels quite thirsty. He has been voiding. States his urine is dark. No vomiting or diarrhea. Creatinine is also elevated at 1.75 today. His bilirubin is 16.2 today. Vital signs are stable. General: The patient appeared well nourished and normally developed. HEENT: Head exam is unremarkable. Neck is without jugular venous distension. LUNGS: Lungs are clear to auscultation and percussion. Breath sounds decreased. HEART: Rate and Rhythm are regular. First and second heart sounds normal. No murmurs, rubs or gallops. ABDOMEN: Abdominal exam reveals normal bowel sounds. Distention noted. EXTREMITITES: No clubbing, cyanosis, or edema. Past Medical History Past Medical History: CVA/TIA Additional Past Medical History / Comment(s): past Shingles left forearm, CONCUSSIONS( PLAYED FOOTBALL), 'pancreatic mass /liver mass" had a paracentesis and liver bx 06-29-17 waiting results. , CVA in 2016 with no residuals. History of Any Multi-Drug Resistant Organisms: None Reported Past Surgical History: Orthopedic Surgery Additional Past Surgical History / Comment(s): R hand sx to remove a peice of metal removed, vasectomy Past Anesthesia/Blood Transfusion Reactions: Motion Sickness Additional Past Anesthesia/Blood Transfusion Reaction / Comment(s): clausterphobia Smoking Status: Current every day smoker - Past Family History Mother Family Medical History: Diabetes Mellitus, Hypertension Additional Family Medical History / Comment(s): Mother was 82 yrs old when she . Father Family Medical History: COPD Additional Family Medical History / Comment(s): Father is 82 yrs old. Sister(s) Additional Family Medical History / Comment(s): Patient has 2 sisters with no major medical problems. Patient does not have any brothers. Patient has 2 sons are healthy. Medications and Allergies Home Medications Medication Instructions Recorded Confirmed Type Ondansetron [Zofran] 4 mg PO Q6H PRN #24 tab 06/18/17 07/01/17 Rx HYDROcodone/APAP 5-325MG [[place] 1 tab PO TID PRN 06/28/17 07/01/17 History 5-325] Lactulose [Cephulac] 20 gm PO TID 06/28/17 07/01/17 History Furosemide [Lasix] 40 mg PO BID #60 tablet 06/30/17 07/01/17 Rx Nicotine 21Mg/24Hr Patch [Habitrol] 1 patch TRANSDERM DAILY #30 patch 06/30/17 07/01/17 Rx Spironolactone [Aldactone] 50 mg PO DAILY #60 tab 06/30/17 07/01/17 Rx Allergies Allergy/AdvReac Type Severity Reaction Status Date / Time No Known Allergies Allergy Verified 06/28/17 11:28 Physical Exam Vitals: Vital Signs Temp Pulse Resp BP Pulse Ox 07/02/17 07:00 97.7 F 85 20 127/74 96 07/01/17 22:00 97.8 F 85 16 109/66 95 07/01/17 16:41 97.8 F 90 20 114/75 97 Intake and Output 07/01/17 07/02/17 07/02/17 22:59 06:59 14:59 Other: Voiding Method Toilet # Voids 2 2 Weight 111.13 kg 111.13 kg Results - Lab Results Most recent lab results Calcium 8.4 mg/dL (8.4-10.2) 07/02/17 06:57 07/02/17 06:57 07/02/17 06:57 Assessment and Plan Plan: Assessment: 1. Hypervolemic hyponatremia secondary to ascites from liver metastasis. Sodium level dropped with IV hydration. He did receive 1 dose of Lasix last night and sodium level this morning was 120. 2. Nonoliguric acute kidney injury secondary to ATN secondary to hepatorenal syndrome. No evidence of hydronephrosis noted on renal ultrasound. Elevated bilirubin can also cause ATN/pigment nephropathy. 3. Mild hyperkalemia secondary to acute kidney injury. 4. Metastatic carcinoma of pancreaticobiliary origin. Liver metastasis noted. 5. Ascites secondary to liver metastasis. Plan: Scheduled for paracentesis today. He will be getting 25 g of albumin pre-and post-paracentesis. 60 of Lasix IV once today. Maintain 1.5 L fluid restriction. Check urine sodium, serum and urine osmolality. Repeat sodium level at 6 PM today. If no significant improvement, will give Samsca. Discussed with oncology. Overall prognosis guarded. Thank you for the consultation. I will continue to follow the patient with you during his hospital stay.
[2017-07-02 14:21] LABS: INR 1.5 (<1.2)
[2017-07-02] MEDS ORDERED: LIDOCAINE 1% INJ 10MG/ML (20 ML MDV) SQ ONE (14:25)
[2017-07-02] MEDS: ALBUMIN HUMAN 25% 50 ML in EMPTY BAG 1 BAG IVPB SCH ×2 (14:41→14:53)
--- NOTE | 2017-07-02 14:43 | P.HPIM ---
History of Present Illness H&P Date: 07/02/17 61 yr old male patient of Dr. Young with past medical history of obesity, CVA, shingles, tobacco abuse, recently diagnosed metastatic disease with unknown primary with multiple liver mass and pancreatic mass at the pancreatic tail who underwent liver biopsy on 06/29. Patient was recently admitted on 06/18 for abdominal distention and weakness. He underwent CT abdomen previously on 06/13 which suggested large ascites, hyperdense lesion on the liver measuring 4 cm without bile duct dilation consistent with metastatic disease there was a 5 cm mass in the tail of the pancreas suspicious for cancer. Patient underwent 3 paracentesis so far, 9.2 L removed during the first paracentesis is an 7 L removed during the second and the last one was on with 8.3 L removed which was after 4 dyas from the second one. Cytology positive for adenocarcinoma in the fluid. Increased CEA 19.9 with normal CEA. During the last admission patient was noted to have a sodium of 122, elevated liver enzymes with bilirubin as high as 13.6 with increase in transaminase. Urine osmolarity at that time was 367, urine sodium was 15. Patient received 1 dose of Samsca. He was discharged on 06/30 as patient had a appointment with Dr. Vasquez and is currently He does complain of abdominal distention and lower extremity edema. He denies any nausea, vomiting. It is lactulose for regular bowel movements. INR today was 2. Liver biopsy was canceled. Vitamin K 5 mg given. Repeat INR tomorrow for possible liver biopsy. Patient comes in today been intractable nausea, associated with progressive abdominal pain and increased drowsiness. Vitals are stable with a blood pressure 127/74, respiratory rate 20, pulse rate 85 with labs suggestive of WBC 20.5 that continues to progress, increased hemoglobin 18.6, sodium 120 which dropped to 119 on administration of IV fluid which were stopped. Increase potassium to 5.2, chloride 87, creatinine 1.75, bilirubin 18, the increased AST to 200, ALT 194, alkaline phosphatase 854. Patient received 60 mg IV of Lasix. Review of Systems Constitutional: Denies chills, Denies fever, increased lethargy, poor appetite , Denies weight loss Eyes: denies decreased vision, denies diplopia, denies discharge, denies pain Ears: deny: decreased hearing Ears, nose, mouth and throat: Denies dental pain, Denies headache, Denies nasal discharge, Denies nose pain Cardiovascular: Denies chest pain, Denies decreased exercise tolerance, Denies edema, Denies high blood pressure, Denies irregular heart beat, Denies palpitations, Denies paroxysmal nocturnal dyspnea, Denies rapid heart beat, Denies shortness of breath Respiratory: Denies congestion, Denies cough, Denies cough with sputum, Denies dyspnea, Denies home oxygen, Denies wheezing Gastrointestinal: Endorses abdominal pain, Denies change in bowel habits, Denies coffee ground emesis, Denies early satiety, Denies excessive gas, Denies heartburn, Denies hematemesis, Denies hematochezia,endorses loss of appetite, Denies nausea, Denies vomiting Genitourinary: Denies dysuria, Denies flank pain, Denies kidney stones, Denies menorrhagia, Denies urgency, Denies urinary frequency Musculoskeletal: Denies gait dysfunction, Denies limitation of motion, Denies morning stiffness, Denies muscle cramps Integumentary: Denies rash, Denies wounds, Denies brittle nails, Denies change in hair/nails, Denies darkening of skin Neurological: Denies balance difficulties, Denies change in speech, Denies double vision, Denies gait dysfunction, Denies loss of vision, Denies motor disturbance, Denies numbness, Denies paralysis, Denies paresthesias, Denies seizures Psychiatric: Denies anxiety, Denies depression Endocrine: Denies excessive sweating, Denies excessive thirst, Denies high blood sugars, Denies palpitations Hematologic/Lymphatic: Denies easy bruising, Denies lymphadenopathy Past Medical History Past Medical History: CVA/TIA Additional Past Medical History / Comment(s): past Shingles left forearm, CONCUSSIONS( PLAYED FOOTBALL), 'pancreatic mass /liver mass" had a paracentesis and liver bx 06-29-17 waiting results. , CVA in 2016 with no residuals. History of Any Multi-Drug Resistant Organisms: None Reported Past Surgical History: Orthopedic Surgery Additional Past Surgical History / Comment(s): R hand sx to remove a peice of metal removed, vasectomy Past Anesthesia/Blood Transfusion Reactions: Motion Sickness Additional Past Anesthesia/Blood Transfusion Reaction / Comment(s): clausterphobia Smoking Status: Current every day smoker - Past Family History Mother Family Medical History: Diabetes Mellitus, Hypertension Additional Family Medical History / Comment(s): Mother was 82 yrs old when she . Father Family Medical History: COPD Additional Family Medical History / Comment(s): Father is 82 yrs old. Sister(s) Additional Family Medical History / Comment(s): Patient has 2 sisters with no major medical problems. Patient does not have any brothers. Patient has 2 sons are healthy. Medications and Allergies Home Medications Medication Instructions Recorded Confirmed Type Ondansetron [Zofran] 4 mg PO Q6H PRN #24 tab 06/18/17 07/01/17 Rx HYDROcodone/APAP 5-325MG [[place] 1 tab PO TID PRN 06/28/17 07/01/17 History 5-325] Lactulose [Cephulac] 20 gm PO TID 06/28/17 07/01/17 History Furosemide [Lasix] 40 mg PO BID #60 tablet 06/30/17 07/01/17 Rx Nicotine 21Mg/24Hr Patch [Habitrol] 1 patch TRANSDERM DAILY #30 patch 06/30/17 07/01/17 Rx Spironolactone [Aldactone] 50 mg PO DAILY #60 tab 06/30/17 07/01/17 Rx Allergies Allergy/AdvReac Type Severity Reaction Status Date / Time No Known Allergies Allergy Verified 06/28/17 11:28 Physical Exam Vitals: Vital Signs Temp Pulse Resp BP Pulse Ox 07/02/17 07:00 97.7 F 85 20 127/74 96 07/01/17 22:00 97.8 F 85 16 109/66 95 07/01/17 16:41 97.8 F 90 20 114/75 97 Intake and Output 07/01/17 07/02/17 07/02/17 22:59 06:59 14:59 Other: Voiding Method Toilet # Voids 2 2 Weight 111.13 kg 111.13 kg - Constitutional General appearance: cooperative, in moderate acute distress, obese - EENT Eyes: Icteric sclerae, PERRLA, normal appearance with yellow skin ENT: hearing grossly normal - Neck Neck: no lymphadenopathy, normal ROM, no other, no rigidity, no stridor, no thyromegaly - Respiratory Respiratory: bilateral: CTA, negative: diminished, dullness, rales, rhonchi - Cardiovascular Rhythm: regular Heart sounds: normal: S1, S2 Abnormal Heart Sounds: no systolic murmur, no diastolic murmur, no rub, no S3 Gallop, no S4 Gallop, no click, no other - Gastrointestinal General gastrointestinal: normal bowel sounds, soft, distended percussion positive for fluid - Integumentary Integumentary: no rash - Neurologic Neurologic: CNII-XII intact - Musculoskeletal Musculoskeletal: strength equal bilaterally - Psychiatric Psychiatric: A&O x's 3, appropriate affect Results CBC & Chem 7: 07/02/17 06:57 07/02/17 06:57 Labs: Abnormal Lab Results - Last 24 Hours (Table) 07/01/17 07/01/17 07/02/17 Range/Units 17:13 22:19 06:57 WBC 20.5 H (3.8-10.6) k/uL RBC 6.44 H (4.30-5.90) m/uL Hgb 18.6 H (13.0-17.5) gm/dL Hct 59.4 H (39.0-53.0) % Plt Count 142 L (150-450) k/uL Neutrophils # 18.7 H (1.3-7.7) k/uL Lymphocytes # 0.2 L (1.0-4.8) k/uL Monocytes # 1.2 H (0-1.0) k/uL Sodium 120 L* 119 L* (137-145) mmol/L Potassium 5.2 H (3.5-5.1) mmol/L Chloride 84 L (98-107) mmol/L BUN 54 H (9-20) mg/dL Creatinine 1.65 H (0.66-1.25) mg/dL Glucose 130 H (74-99) mg/dL Osmolality (280-301) mosm/kg Total Bilirubin 18.0 H* (0.2-1.3) mg/dL AST 200 H (17-59) U/L ALT 194 H (21-72) U/L Alkaline Phosphatase 854 H (38-126) U/L Total Protein 6.1 L (6.3-8.2) g/dL Albumin 3.1 L (3.5-5.0) g/dL 05/18/18 05/18/18 Range/Units 06:57 06:57 WBC (3.8-10.6) k/uL RBC (4.30-5.90) m/uL Hgb (13.0-17.5) gm/dL Hct (39.0-53.0) % Plt Count (150-450) k/uL Neutrophils # (1.3-7.7) k/uL Lymphocytes # (1.0-4.8) k/uL Monocytes # (0-1.0) k/uL Sodium 120 L* (137-145) mmol/L Potassium 5.2 H (3.5-5.1) mmol/L Chloride 87 L (98-107) mmol/L BUN 56 H (9-20) mg/dL Creatinine 1.75 H (0.66-1.25) mg/dL Glucose 110 H (74-99) mg/dL Osmolality 272 L (280-301) mosm/kg Total Bilirubin 16.2 H* (0.2-1.3) mg/dL AST 148 H (17-59) U/L ALT 170 H (21-72) U/L Alkaline Phosphatase 707 H (38-126) U/L Total Protein 5.6 L (6.3-8.2) g/dL Albumin 2.8 L (3.5-5.0) g/dL Thrombosis Risk Factor Assmnt - DVT/VTE Prophylaxis DVT/VTE Prophylaxis: Mechanical Prophylaxis ordered - Choose All That Apply Any of the Below Risk Factors Present?: No Other Risk Factors: Yes Each Risk Factor Represents 2 Points: Age 61-74 years, Malignancy Other congenital or acquired thrombophilia - If yes, enter type in comment: No Thrombosis Risk Factor Assessment Total Risk Factor Score: 4 Thrombosis Risk Factor Assessment Level: Moderate Risk Assessment and Plan Plan: 1 pancreatic mass with metastatic disease to the liver with significant ascites. Last paracentesis on 06/29 Liver biopsy done on 06/29. Follows Dr. Christina vega possible treatment. Agents prognosis appeared to be very poor as ascites fluid is positive for adenocarcinoma. Elevated CA-19-9 9, CEA and normal alpha-fetoprotein suggesting metastatic disease to liver 2 decompensated liver disease likely secondary to metastatic disease of the liver. patient has a meld score of 32 with 52% mortality in 3 months. Lactulose to prevent hepatic encephalopathy. Patient initiated on Lasix and Aldactone 3 ascites secondary to decompensated liver disease. Mild abdominal distention. We'll hold for ultrasound abdomen for now. Last paracentesis 3 days ago. Paracentesis today with interventional radiology. 4 hyponatremia likely secondary to liver failure. Sodium 121. Continue low- sodium and 1500 fluid restriction to stop Lasix 40 IV daily. Nephrology consulted for possible vaptan therapy. 5 tobacco use and dependence nicotine patch daily 6 hyperkalemia status post one dose of kayexalate 7 history of CVA with no residual - stable 8 DVT prophylaxis with SCDs 9 GI prophylaxis with Pepcid 20 mg twice a day 10 code status full code
[2017-07-02] MEDS: NICOTINE 21MG/24HR PATCH TRANSDERM SCH (15:39)
--- NOTE | 2017-07-02 15:51 | US ---
Therapeutic paracentesis. DATE OF EXAM: 07/02/2017 CLINICAL HISTORY: Ascites The procedure was discussed with the patient. The risks, complications, benefits, and alternatives we re discussed and any questions were answered. Informed consent was obtained. The patient was placed s upine on the ultrasound table and prepped and draped in the usual sterile fashion. All elements of maximal barrier technique were utilized. Under ultrasound guidance, access into the right lower quadrant was obtained, via the paracentesis catheter system and direct ultrasound guidanc e. Approximately 5.2 liters of straw-colored fluid was removed. The patient was stable throughout the pr ocedure and remained stable upon discharge from Department of Radiology. IMPRESSION: Successful therapeutic paracentesis under ultrasound guidance.
--- NOTE | 2017-07-02 18:57 | P.HPIM ---
History of Present Illness H&P Date: 07/02/17 Chief Complaint: Hyponatremia and increased Bilirubin Mr. Marie is a pleasant male who states he was in his normal state of health, working 12 hours a day up until a few weeks ago. On 06/13/17 he presented to the emergency department with a chief complaint of abdominal pain. Pain was worse in the left upper quandrant. The pain started on 06/11/17, progressively became worse so he went to urgent care on 06/12/17. He states he has some relief with belching or bowel movement, otherwise no other alleviating factors. SUbjective signs of fevers, sweats and chills. No nausea or vomiting. Has been constipated with occassional bouts of diarrhea. Only documented history includes CVA/TIAs, current tobacco smoker. On 06/13/17 - CT Scan Abdomen and Pelvis - Revealed Massive Ascites with multiple low density liver masses consistent with metastatic disease. Also revealed was a low-density 5cm mass at the tail of the pancreas. On 06/18/17 - Ultrasound Guided Paracentesis 9.2 Liters Off - Cytology Resulted with Adenocarcinoma in the Fluid On 06/25/17 - Paracentesis and 7.7Liters removed Patient presents after paracentesis with his supportive and two sons. He is in a wheel chair. His is concerned as he doesnt seem to have his thoughts together and words, although this appears better through the day. He is scheduled for a liver biopsy on Wednesday. His INR 2.0, therefore he will require FFP or vitamin K to reverse his coagulopathic state. On 06/19/17 Total Bili - 5.1, AST = 104, ALT - 107. Creatinine on 06/25 = 0.98 Ca19-9 = 79, CEA - 27 He feels weak and fatigued. Decreased appetite. Having a bowel movement every 2 days. No vomiting or nausea. Abdominal pain controlled with one Pain Pill [place]. 07/01/17: Not doing well > C/O increasing abdominal pain, weakness, increasing drowsiness, inability to eat. 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 He is on [place] 5 and Lactulose (Constipation). Pain is poorly controlled. After he was seen in office with Dr. Vasquez he was directly admitted for pain management, hyponatremia, and paracentesis. His bilirubin trending up, and mental status continuing to decline. Patient and sons at bedside during assessment. Review of Systems A 14 point review of systems assessed and completed and all negative except HPI Past Medical History Past Medical History: CVA/TIA Additional Past Medical History / Comment(s): past Shingles left forearm, CONCUSSIONS( PLAYED FOOTBALL), 'pancreatic mass /liver mass" had a paracentesis and liver bx 06-29-17 waiting results. , CVA in 2016 with no residuals. History of Any Multi-Drug Resistant Organisms: None Reported Past Surgical History: Orthopedic Surgery Additional Past Surgical History / Comment(s): R hand sx to remove a peice of metal removed, vasectomy Past Anesthesia/Blood Transfusion Reactions: Motion Sickness Additional Past Anesthesia/Blood Transfusion Reaction / Comment(s): clausterphobia Smoking Status: Current every day smoker - Past Family History Mother Family Medical History: Diabetes Mellitus, Hypertension Additional Family Medical History / Comment(s): Mother was 82 yrs old when she . Father Family Medical History: COPD Additional Family Medical History / Comment(s): Father is 82 yrs old. Sister(s) Additional Family Medical History / Comment(s): Patient has 2 sisters with no major medical problems. Patient does not have any brothers. Patient has 2 sons are healthy. Medications and Allergies Home Medications Medication Instructions Recorded Confirmed Type Ondansetron [Zofran] 4 mg PO Q6H PRN #24 tab 06/18/17 07/01/17 Rx HYDROcodone/APAP 5-325MG [[place] 1 tab PO TID PRN 06/28/17 07/01/17 History 5-325] Lactulose [Cephulac] 20 gm PO TID 06/28/17 07/01/17 History Furosemide [Lasix] 40 mg PO BID #60 tablet 06/30/17 07/01/17 Rx Nicotine 21Mg/24Hr Patch [Habitrol] 1 patch TRANSDERM DAILY #30 patch 06/30/17 07/01/17 Rx Spironolactone [Aldactone] 50 mg PO DAILY #60 tab 06/30/17 07/01/17 Rx Allergies Allergy/AdvReac Type Severity Reaction Status Date / Time No Known Allergies Allergy Verified 06/28/17 11:28 Physical Exam Vitals: Vital Signs Temp Pulse Resp BP Pulse Ox 07/02/17 07:00 97.7 F 85 20 127/74 96 07/01/17 22:00 97.8 F 85 16 109/66 95 07/01/17 16:41 97.8 F 90 20 114/75 97 Intake and Output 07/01/17 07/02/17 07/02/17 22:59 06:59 14:59 Other: Voiding Method Toilet # Voids 2 2 Weight 111.13 kg 111.13 kg - Constitutional General appearance: average body habitus, mild distress - EENT Eyes: EOMI, dentition normal, scleral icterus ENT: NA/AT, normal oropharynx - Neck Neck: lymphadenopathy, normal ROM - Respiratory Respiratory: bilateral: diminished (Bibasilar) - Cardiovascular Rhythm: regular Heart sounds: normal: S1, S2 leg Peripheral Edema: bilateral: 2+ - Gastrointestinal General gastrointestinal: distended, hepatomegaly, soft, tenderness - Integumentary Integumentary: jaundiced - Neurologic Neurologic: CNII-XII intact - Musculoskeletal Musculoskeletal: generalized weakness, strength equal bilaterally - Psychiatric Inappropriate at times, word searching, lethargy Results CBC & Chem 7: 07/02/17 06:57 07/02/17 17:54 Labs: Abnormal Lab Results - Last 24 Hours (Table) 07/01/17 07/01/17 07/02/17 Range/Units 17:13 22:19 06:57 WBC 20.5 H (3.8-10.6) k/uL RBC 6.44 H (4.30-5.90) m/uL Hgb 18.6 H (13.0-17.5) gm/dL Hct 59.4 H (39.0-53.0) % Plt Count 142 L (150-450) k/uL Neutrophils # 18.7 H (1.3-7.7) k/uL Lymphocytes # 0.2 L (1.0-4.8) k/uL Monocytes # 1.2 H (0-1.0) k/uL Sodium 120 L* 119 L* (137-145) mmol/L Potassium 5.2 H (3.5-5.1) mmol/L Chloride 84 L (98-107) mmol/L BUN 54 H (9-20) mg/dL Creatinine 1.65 H (0.66-1.25) mg/dL Glucose 130 H (74-99) mg/dL Osmolality (280-301) mosm/kg Total Bilirubin 18.0 H* (0.2-1.3) mg/dL AST 200 H (17-59) U/L ALT 194 H (21-72) U/L Alkaline Phosphatase 854 H (38-126) U/L Total Protein 6.1 L (6.3-8.2) g/dL Albumin 3.1 L (3.5-5.0) g/dL 07/02/17 07/02/17 Range/Units 06:57 06:57 WBC (3.8-10.6) k/uL RBC (4.30-5.90) m/uL Hgb (13.0-17.5) gm/dL Hct (39.0-53.0) % Plt Count (150-450) k/uL Neutrophils # (1.3-7.7) k/uL Lymphocytes # (1.0-4.8) k/uL Monocytes # (0-1.0) k/uL Sodium 120 L* (137-145) mmol/L Potassium 5.2 H (3.5-5.1) mmol/L Chloride 87 L (98-107) mmol/L BUN 56 H (9-20) mg/dL Creatinine 1.75 H (0.66-1.25) mg/dL Glucose 110 H (74-99) mg/dL Osmolality 272 L (280-301) mosm/kg Total Bilirubin 16.2 H* (0.2-1.3) mg/dL AST 148 H (17-59) U/L ALT 170 H (21-72) U/L Alkaline Phosphatase 707 H (38-126) U/L Total Protein 5.6 L (6.3-8.2) g/dL Albumin 2.8 L (3.5-5.0) g/dL Thrombosis Risk Factor Assmnt - DVT/VTE Prophylaxis DVT/VTE Prophylaxis: Contraindicated - See note - Choose All That Apply Any of the Below Risk Factors Present?: No Other Risk Factors: Yes Each Risk Factor Represents 2 Points: Age 61-74 years, Malignancy Other congenital or acquired thrombophilia - If yes, enter type in comment: No Thrombosis Risk Factor Assessment Total Risk Factor Score: 4 Thrombosis Risk Factor Assessment Level: Moderate Risk Assessment and Plan (1) Intractable pain Current Visit: Yes Status: Acute Code(s): R52 - PAIN, UNSPECIFIED SNOMED Code(s): 74198141 (2) Coagulopathy Current Visit: No Status: Acute Code(s): D68.9 - COAGULATION DEFECT, UNSPECIFIED SNOMED Code(s): 90635314 (3) Constipation due to pain medication Current Visit: No Status: Acute Code(s): K59.03 - DRUG INDUCED CONSTIPATION SNOMED Code(s): 39863026 (4) Elevated liver enzymes Current Visit: No Status: Acute Code(s): R74.8 - ABNORMAL LEVELS OF OTHER SERUM ENZYMES SNOMED Code(s): 722180699 (5) Hyperbilirubinemia Current Visit: No Status: Acute Code(s): E80.6 - OTHER DISORDERS OF BILIRUBIN METABOLISM SNOMED Code(s): 04319033 (6) Jaundice Current Visit: No Status: Acute Code(s): R17 - UNSPECIFIED JAUNDICE SNOMED Code(s): 69761495 (7) Metastatic disease Current Visit: No Status: Acute Code(s): C79.9 - SECONDARY MALIGNANT NEOPLASM OF UNSPECIFIED SITE SNOMED Code(s): 349857300 (8) Pancreatic mass Current Visit: No Status: Acute Code(s): K86.9 - DISEASE OF PANCREAS, UNSPECIFIED SNOMED Code(s): 083486864 Plan: Assessment and Recommendations: 1. Metastatic Adenocarcinoma - Likely origin Pancreatobiliary - Liver Metastasis - Prognosis Poor - Long Discussion with patient and today regarding options of palliative treatment versus hospice. They would like to continue to monitor him over the weekend and see if he stabilizes to reason treatment options, they have been educated on the severity of his state. Code status has been addressed and they do not want any life prolonging or grand life saving measures, his wishes are to be a full No DNR. 2. Hyponatremia Hypervolemic secondary to ascites from liver metastasis. Sodium level dropped with IV hydration. - Nephrology is following - Na 120 this am, patient did receive lasix 3. Decompensated liver disease likely secondary to metastatic disease - Lactulose to acheive 2-3 minimal bowel movements daily to prevent hepatic encephalopathy. 4. Recurrent Malignant Ascities - Status Post Paracentesis this am 5.5L, 06/25~ 7L and 06/18 ~9 L Removed - Continue therapeutic Paracentesis for comfort - Albumin with paracentesis (50 given today with para) 5. Acute Kidney Injury with Mild Hyperkalemia - Per Nephrology Re-evaluation and family discussion on Wednesday, likely hospice outpatient facility versus inpatient hospice if candidate. Continue supportive and comfort measures at this time Physician Attestations: I have completed the full history and physical of this patient and agree with Марина Moreno's, [employer]CH[employer] APPRENTICE dictation, dictated as a scribe.
[2017-07-02] MEDS ORDERED: TOLVAPTAN 15 MG 1/2 TABLET PO ONE (18:58)
[2017-07-02] MEDS: traZODone HCL 50 MG TAB PO SCH (22:45)
[2017-07-02] MEDS: SENNOSIDES 8.6 MG TAB PO SCH (22:45)
[2017-07-03 02:37] LABS: Glucose,Whole Blood 128 mg/dL (75-99)
[2017-07-03] MEDS: MORPHINE SULFATE 4 MG/ML SYRINGE IVP PRN ×5 (02:53→22:29)
[2017-07-03] MEDS ORDERED: SODIUM CHLORIDE 3%(HYPERTONIC) 500 ML IV SCH (03:00)
[2017-07-03] MEDS ORDERED: NALOXONE 0.4 MG/ML 1 ML VIAL IV PRN (03:16)
[2017-07-03 03:30] LABS: Basophils % (A) 0 %; Eosinophils # (A) 0.3 k/uL (0-0.7); Eosinophils % (A) 1 %; HGB 18.3 gm/dL (13.0-17.5); Lymphocytes # (A) 1.2 k/uL (1.0-4.8); Lymphocytes % (A) 6 %; MCH 29.1 pg (25.0-35.0); MCHC 32.2 g/dL (31.0-37.0); MCV 90.4 fL (80.0-100.0); Mean Platelet Volume 7.8; Monocytes # (A) 1.2 k/uL (0-1.0); Monocytes % (A) 6 %; Neutrophils # (A) 18.1 k/uL (1.3-7.7); Neutrophils % (A) 86 %; Platelet Count 141 k/uL (150-450); RBC 6.28 m/uL (4.30-5.90); RDW 15.2 % (11.5-15.5)
[2017-07-03 03:33] LABS: HCT 56.8 % (39.0-53.0)
[2017-07-03 03:46] LABS: Calcium 8.8 mg/dL (8.4-10.2)
[2017-07-03 04:13] LABS: Albumin 3.2 g/dL (3.5-5.0); Potassium 5.9 mmol/L (3.5-5.1); Total Bilirubin 17.5 mg/dL (0.2-1.3); Total Protein 6.1 g/dL (6.3-8.2)
[2017-07-03 04:27] LABS: Magnesium 2.9 mg/dL (1.6-2.3); Phosphorus 5.1 mg/dL (2.5-4.5)
[2017-07-03] MEDS ORDERED: SODIUM CHLORIDE 0.9% 1,000 ML IV ONE (06:14)
[2017-07-03 06:21] LABS: Appearance,Urine Clear (Clear); Bilirubin,Urine 2+ (Negative); Blood,Urine Negative (Negative); Color,Urine Dark Yellow; Glucose,Urine (UA) Negative (Negative); Ketones,Urine Negative (Negative); Leukocyte Esterase,Urine Negative (Negative); Nitrite,Urine Negative (Negative); PH, Urine 5.5 (5.0-8.0); Protein,Urine Negative (Negative)
--- NOTE | 2017-07-03 06:45 | P.PN ---
Subjective Progress Note Date: 07/03/17 Principal diagnosis: This 61-year-old male is seen in consultation for hyponatremia secondary to acute kidney injury and has been given 3% saline since 3 AM about 3 hours ago as well as a bolus just started at the time of this exam. He is awake and alert has pain in his abdomen. He is diagnosed with metastatic pancreatic cancer. He underwent paracentesis yesterday second time with 5 L taken off. After that his blood pressure is somewhat low. Blood pressures were in the 110 range now is in the 90s to 100 range. He is awake alert but because of the morphine given 10 just now is somewhat sleepy He has been given Tolvaptan 15 milligrams yesterday in the evening History of present illness-Mr. Marie is a pleasant male who was in his normal state of health, until early May, on 06/13/17 he presented to the emergency department with CC of persistent and progressive LUQ abdominal pain x 3 days, no identified aggravating factors, pain would be temporarily relieved with belching or bowel movement, associated with fevers, sweats, chills, new onset constipation with occasional diarrhea, no nausea or vomiting. 06/13/17 CT AP massive ascites, multiple low density liver masses consistent with metastatic disease, low-density 5 cm mass at the tail of the pancreas. 06/18/17 paracentesis was done with 9.2 L removed, cytology resulted with adenocarcinoma in the fluid , 06/25/17 7.7L removed, liver biopsy 06/29, pt was autoanticoagulated from liver involvement and required vit K, bilirubin was 5.1, Ca19.9 was 79 and CEA was 27. As stated above pt was in office today for f/u and results. Objective - Vital Signs Vital signs: Vital Signs Temp 97.9 F 07/03/17 06:00 Pulse 74 07/03/17 06:00 Resp 13 07/03/17 06:00 BP 86/64 07/03/17 06:00 Pulse Ox 95 07/03/17 06:00 Intake & Output 07/02/17 07/02/17 07/03/17 06:59 18:59 06:59 Intake Total 650 Output Total 1040 Balance -390 Weight 111.13 kg 111.13 kg Intake: IV 110 0.9 NaCl- Flush 20 Sodium Chloride 3%( 90 Hypertonic) 500 ml @ 30 mls/hr IV .[id number] [facility] Rx #:[id number] Oral 540 Output: Urine 1040 Other: Voiding Method Toilet Toilet Urinal # Voids 2 1 1 On examination is sleepy but arousable Neck is supple no facial asymmetry Lungs are clear to auscultation good air entry bilaterally Heart sounds are unremarkable no murmur rub gallop Abdomen soft nontender slightly distended Extremity exam reveals mild edema Neurologically obtunded but moves all his extremities. He received morphine just a few minutes ago because of pain - Labs CBC & Chem 7: 07/03/17 03:14 07/03/17 03:14 Labs: Abnormal Lab Results - Last 24 Hours (Table) 07/02/17 07/02/17 07/02/17 Range/Units 06:57 06:57 06:57 WBC 20.5 H (3.8-10.6) k/uL RBC 6.44 H (4.30-5.90) m/uL Hgb 18.6 H (13.0-17.5) gm/dL Hct 59.4 H (39.0-53.0) % Plt Count 142 L (150-450) k/uL Neutrophils # 18.7 H (1.3-7.7) k/uL Lymphocytes # 0.2 L (1.0-4.8) k/uL Monocytes # 1.2 H (0-1.0) k/uL PT (9.0-12.0) sec INR (<1.2) Sodium 120 L* (137-145) mmol/L Potassium 5.2 H (3.5-5.1) mmol/L Chloride 87 L (98-107) mmol/L Carbon Dioxide (22-30) mmol/L BUN 56 H (9-20) mg/dL Creatinine 1.75 H (0.66-1.25) mg/dL Glucose 110 H (74-99) mg/dL POC Glucose (mg/dL) (75-99) mg/dL Osmolality 272 L (280-301) mosm/kg Phosphorus (2.5-4.5) mg/dL Magnesium (1.6-2.3) mg/dL Total Bilirubin 16.2 H* (0.2-1.3) mg/dL AST 148 H (17-59) U/L ALT 170 H (21-72) U/L Alkaline Phosphatase 707 H (38-126) U/L Total Protein 5.6 L (6.3-8.2) g/dL Albumin 2.8 L (3.5-5.0) g/dL Urine Bilirubin (Negative) Ur Random Sodium (30-90) mmol/L 07/02/17 07/02/17 07/02/17 Range/Units 13:10 16:30 17:54 WBC (3.8-10.6) k/uL RBC (4.30-5.90) m/uL Hgb (13.0-17.5) gm/dL Hct (39.0-53.0) % Plt Count (150-450) k/uL Neutrophils # (1.3-7.7) k/uL Lymphocytes # (1.0-4.8) k/uL Monocytes # (0-1.0) k/uL PT 14.0 H (9.0-12.0) sec INR 1.5 H (<1.2) Sodium 120 L* (137-145) mmol/L Potassium (3.5-5.1) mmol/L Chloride (98-107) mmol/L Carbon Dioxide (22-30) mmol/L BUN (9-20) mg/dL Creatinine (0.66-1.25) mg/dL Glucose (74-99) mg/dL POC Glucose (mg/dL) (75-99) mg/dL Osmolality (280-301) mosm/kg Phosphorus (2.5-4.5) mg/dL Magnesium (1.6-2.3) mg/dL Total Bilirubin (0.2-1.3) mg/dL AST (17-59) U/L ALT (21-72) U/L Alkaline Phosphatase (38-126) U/L Total Protein (6.3-8.2) g/dL Albumin (3.5-5.0) g/dL Urine Bilirubin (Negative) Ur Random Sodium <5 L (30-90) mmol/L 07/03/17 07/03/17 07/03/17 Range/Units 00:05 02:36 03:14 WBC 21.0 H (3.8-10.6) k/uL RBC 6.28 H (4.30-5.90) m/uL Hgb 18.3 H (13.0-17.5) gm/dL Hct 56.8 H (39.0-53.0) % Plt Count 141 L (150-450) k/uL Neutrophils # 18.1 H (1.3-7.7) k/uL Lymphocytes # (1.0-4.8) k/uL Monocytes # 1.2 H (0-1.0) k/uL PT (9.0-12.0) sec INR (<1.2) Sodium 117 L* (137-145) mmol/L Potassium (3.5-5.1) mmol/L Chloride (98-107) mmol/L Carbon Dioxide (22-30) mmol/L BUN (9-20) mg/dL Creatinine (0.66-1.25) mg/dL Glucose (74-99) mg/dL POC Glucose (mg/dL) 128 H (75-99) mg/dL Osmolality (280-301) mosm/kg Phosphorus (2.5-4.5) mg/dL Magnesium (1.6-2.3) mg/dL Total Bilirubin (0.2-1.3) mg/dL AST (17-59) U/L ALT (21-72) U/L Alkaline Phosphatase (38-126) U/L Total Protein (6.3-8.2) g/dL Albumin (3.5-5.0) g/dL Urine Bilirubin (Negative) Ur Random Sodium (30-90) mmol/L 07/03/17 07/03/17 Range/Units 03:14 05:50 WBC (3.8-10.6) k/uL RBC (4.30-5.90) m/uL Hgb (13.0-17.5) gm/dL Hct (39.0-53.0) % Plt Count (150-450) k/uL Neutrophils # (1.3-7.7) k/uL Lymphocytes # (1.0-4.8) k/uL Monocytes # (0-1.0) k/uL PT (9.0-12.0) sec INR (<1.2) Sodium 117 L* (137-145) mmol/L Potassium 5.9 H (3.5-5.1) mmol/L Chloride 85 L (98-107) mmol/L Carbon Dioxide 19 L (22-30) mmol/L BUN 65 H (9-20) mg/dL Creatinine 1.80 H (0.66-1.25) mg/dL Glucose 123 H (74-99) mg/dL POC Glucose (mg/dL) (75-99) mg/dL Osmolality (280-301) mosm/kg Phosphorus 5.1 H (2.5-4.5) mg/dL Magnesium 2.9 H (1.6-2.3) mg/dL Total Bilirubin 17.5 H* (0.2-1.3) mg/dL AST 122 H (17-59) U/L ALT 142 H (21-72) U/L Alkaline Phosphatase 558 H (38-126) U/L Total Protein 6.1 L (6.3-8.2) g/dL Albumin 3.2 L (3.5-5.0) g/dL Urine Bilirubin 2+ H (Negative) Ur Random Sodium (30-90) mmol/L Assessment and Plan Assessment: Impression 1. Acute kidney injury with hyponatremia, cause is hypo-tension, from a combination of third spacing of fluids because of the liver metastasis and pancreatic cancer into the abdomen and further somewhat hypotensive post ascites tap creatinine is going up. 2. Hyponatremia secondary to acute kidney injury and intravascular volume depletion. 3. Hyperkalemia secondary to acute kidney injury. 4. Pancreatic CA with metastatic to liver and ascites. 5. Walker catheter placed urine output was 800 mL unlikely obstructive element. Recommendation. 1. Will maintain the 3% until the labs are available 4 hours after the 30 mL of 3% was started. Additionally he is given a liter of normal saline bolus. 2. If pressure remains low consider starting levo fed. 3. Close monitoring of sodium every 4 hours until we are sure it's mowing up.
[2017-07-03] MEDS: SODIUM CHLORIDE 3%(HYPERTONIC) 500 ML IV SCH ×2 (08:00→22:34)
--- NOTE | 2017-07-03 08:01 | XR ---
EXAMINATION TYPE: XR chest 1V DATE OF EXAM: 07/03/2017 COMPARISON: Prior chest x-ray 10/01/2015 HISTORY: Shortness of breath TECHNIQUE: Single frontal view of the chest is obtained. FINDINGS: There is no focal air space opacity, pleural effusion, or pneumothorax seen. The cardiac silhouette size is within normal limits. The osseous structures are intact. Minimal strand-like bas ilar densities are present. There are overlying cardiac leads. IMPRESSION: Suspect some minimal basilar atelectasis.
[2017-07-03] MEDS: NICOTINE 21MG/24HR PATCH TRANSDERM SCH (08:58)
[2017-07-03] MEDS ORDERED: ALBUMIN HUMAN 25% 50 ML in EMPTY BAG 1 BAG IVPB ONE (10:00)
--- NOTE | 2017-07-03 11:22 | P.CNPUL ---
History of Present Illness Consult date: 07/03/17 Requesting physician: Vane Beal Reason for consult: other (Profound hyponatremia and metastatic pancreatic cancer.) Chief complaint: Abdominal pain, low sodium, and elevated liver enzymes. 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 His initial presentation was on 06/13/2017, patient presented with abdominal pain mostly in the left upper quadrant. Patient was noted to have ascites. And multiple low- density liver masses consistent with metastatic disease. There was also a 5 cm mass at the tail of the pancreas. Paracentesis was done, 7.7 L were removed, and the ascites fluid came back positive for adenocarcinoma. Liver biopsy was done, and it was also positive for adenocarcinoma, likely pancreato-biliary in origin. Patient has been gradually deteriorating and going downhill for the last a few weeks. Has been complaining of severe abdominal pain, generalized weakness, fatigue, decreased appetite, and inability to eat. He was seen by the oncologist the day of admission, and he was basically admitted because of pain management, significantly low sodium, and for paracentesis since his ascites was getting worse. Patient was transferred to the ICU yesterday for infusion of 3% saline which was recommended by nephrology on the case. He is presently on 3% saline, and his sodium is today 120, sodium had been fluctuating between 117 and 120. His hyponatremia was felt to be related to intravascular depletion, and third spacing of fluids. I saw the patient in the ICU today, he is not the greatest historian, he seems to be generally weak, and he is presently on 3% saline. Denies any cough no wheezing no shortness of breath no chest pain. He is mostly complaining of profound weakness, fatigue, and intermittent episodes of abdominal pains. A shunt was noted to have leukocytosis with WBC count of 21.0, sodium is 120 potassium is 5.9. BUN is 65 creatinine 1.80 liver enzymes were noted to be elevated with a total bilirubin of 17.5. Transaminases were also noted to be elevated, and alkaline phosphatase of 558. Review of Systems 14 point review of systems were obtained, please refer to pertinent positives in HPI otherwise remaining systems are negative. Past Medical History Past Medical History: CVA/TIA Additional Past Medical History / Comment(s): past Shingles left forearm, CONCUSSIONS( PLAYED FOOTBALL), 'pancreatic mass /liver mass" had a paracentesis and liver bx 06-29-17 waiting results. , CVA in 2016 with no residuals. History of Any Multi-Drug Resistant Organisms: None Reported Past Surgical History: Orthopedic Surgery Additional Past Surgical History / Comment(s): R hand sx to remove a peice of metal removed, vasectomy Past Anesthesia/Blood Transfusion Reactions: Motion Sickness Additional Past Anesthesia/Blood Transfusion Reaction / Comment(s): clausterphobia Smoking Status: Current every day smoker - Past Family History Mother Family Medical History: Diabetes Mellitus, Hypertension Additional Family Medical History / Comment(s): Mother was 82 yrs old when she . Father Family Medical History: COPD Additional Family Medical History / Comment(s): Father is 82 yrs old. Sister(s) Additional Family Medical History / Comment(s): Patient has 2 sisters with no major medical problems. Patient does not have any brothers. Patient has 2 sons are healthy. Medications and Allergies Home Medications Medication Instructions Recorded Confirmed Type Ondansetron [Zofran] 4 mg PO Q6H PRN #24 tab 06/18/17 07/01/17 Rx HYDROcodone/APAP 5-325MG [[place] 1 tab PO TID PRN 06/28/17 07/01/17 History 5-325] Lactulose [Cephulac] 20 gm PO TID 06/28/17 07/01/17 History Furosemide [Lasix] 40 mg PO BID #60 tablet 06/30/17 07/01/17 Rx Nicotine 21Mg/24Hr Patch [Habitrol] 1 patch TRANSDERM DAILY #30 patch 06/30/17 07/01/17 Rx Spironolactone [Aldactone] 50 mg PO DAILY #60 tab 06/30/17 07/01/17 Rx Allergies Allergy/AdvReac Type Severity Reaction Status Date / Time No Known Allergies Allergy Verified 06/28/17 11:28 Physical Exam Vitals: Vital Signs Temp Pulse Pulse Pulse Resp BP BP 07/03/17 10:00 64 10 L 97/64 07/03/17 09:00 88 12 112/81 07/03/17 08:00 97.9 F 103 H 15 119/82 07/03/17 07:30 96 16 104/65 05/19/18 07:00 84 20 96/75 05/19/18 06:30 93 19 103/62 0519/18 06:00 97.9 F 74 13 86/64 05/19/18 05:30 86 13 107/71 0519/18 05:00 85 10 L 98/63 05/19/18 04:30 60 12 98/64 05/19/18 04:00 97.8 F 68 11 L 91/65 0519/18 03:30 84 9 L 103/72 0519/18 03:00 83 10 L 103/72 0519/18 02:41 97.5 F L 85 11 L 111/74 0519/18 01:49 97.9 F 87 18 117/72 0518/18 20:42 97.4 F L 87 18 100/65 0518/18 16:15 84 18/18 16:00 83 18/18 15:45 0518/18 15:30 87 0518/18 15:15 82 07/02/18 15:06 87 16 102/66 0518/18 14:46 86 16 98/62 0518/18 14:16 90 16 100/66 05/18/18 13:50 98 F 85 20 118/81 BP Pulse Ox 07/03/17 10:00 95 18 09:00 94 L 18 08:00 96 18 07:30 95 18 07:00 97 18 06:30 95 18 06:00 95 18 05:30 95 05/18 05:00 95 05/18 04:30 95 0519/18 04:00 95 0519/18 03:30 95 0519/18 03:00 95 0519/18 02:41 94 L 05/18 01:49 95 0518/18 20:42 96 0518/18 16:15 125/67 96 0518/18 16:00 123/72 97 0518/18 15:45 109/63 05/18/18 15:30 137/66 97 0518/18 15:15 124/73 0518/18 15:06 96 0518/18 14:46 92 L 0518/18 14:16 96 07/02/17 13:50 94 L Intake and Output 07/02/17 07/03/17 07/03/17 22:59 06:59 14:59 Intake Total 650 1090 Output Total 1040 525 Balance -390 565 Intake: IV 110 1090 0.9 NaCl- Flush 20 Sodium Chloride 0.9% 1, 1000 000 ml @ 999 mls/hr IV . Q1H1M ONE Rx#:[id number] Sodium Chloride 3%( 90 90 Hypertonic) 500 ml @ 30 mls/hr IV .[id number] [facility] Rx #:[id number] Oral 540 Output: Urine 1040 525 Stool 0 Other: Voiding Method Indwelling Catheter # Voids 1 Weight 108.5 kg Physical Exam: Revealed a 61-year-old white male, sleepy, but arousable, in no form of respiratory distress. Head: Atraumatic, normocephalic. HEENT:[Neck is supple.] [No neck masses.] [No thyromegaly.] [No JVD.] Chest: [Clear throughout, no crackles, no rhonchi, no wheezes.] Cardiac Exam: [Normal S1 and S2, no S3 gallop, no murmur.] Abdomen: [Soft, slightly tender on deep palpation, positive ascites, no rebound , no guarding. Positive bowel sounds. Extremities: [No clubbing, 1+ bipedal edema, no cyanosis.] Neurological Exam: Slightly lethargic, arousable, otherwise no gross focal deficit. Patient has been receiving narcotics intermittently for pain control. Lymphatics: No lymphadenopathy. Psychiatric: Cannot be assessed. Results - Laboratory Findings CBC and BMP: 07/03/17 03:14 07/03/17 07:05 PT/INR, D-dimer PT 14.0 sec (9.0-12.0) H 07/02/17 13:10 INR 1.5 (<1.2) H 07/02/17 13:10 Abnormal lab findings: Abnormal Labs 07/01/17 07/01/17 07/02/17 17:13 22:19 06:57 WBC 20.5 H RBC 6.44 H Hgb 18.6 H Hct 59.4 H Plt Count 142 L Neutrophils # 18.7 H Lymphocytes # 0.2 L Monocytes # 1.2 H PT INR Sodium 120 L* 119 L* Potassium 5.2 H Chloride 84 L Carbon Dioxide BUN 54 H Creatinine 1.65 H Glucose 130 H POC Glucose (mg/dL) Osmolality Phosphorus Magnesium Total Bilirubin 18.0 H* AST 200 H ALT 194 H Alkaline Phosphatase 854 H Total Protein 6.1 L Albumin 3.1 L Urine Bilirubin Ur Random Sodium 07/02/17 07/02/17 07/02/17 06:57 06:57 13:10 WBC RBC Hgb Hct Plt Count Neutrophils # Lymphocytes # Monocytes # PT 14.0 H INR 1.5 H Sodium 120 L* Potassium 5.2 H Chloride 87 L Carbon Dioxide BUN 56 H Creatinine 1.75 H Glucose 110 H POC Glucose (mg/dL) Osmolality 272 L Phosphorus Magnesium Total Bilirubin 16.2 H* AST 148 H ALT 170 H Alkaline Phosphatase 707 H Total Protein 5.6 L Albumin 2.8 L Urine Bilirubin Ur Random Sodium 07/02/17 07/02/17 07/03/17 16:30 17:54 00:05 WBC RBC Hgb Hct Plt Count Neutrophils # Lymphocytes # Monocytes # PT INR Sodium 120 L* 117 L* Potassium Chloride Carbon Dioxide BUN Creatinine Glucose POC Glucose (mg/dL) Osmolality Phosphorus Magnesium Total Bilirubin AST ALT Alkaline Phosphatase Total Protein Albumin Urine Bilirubin Ur Random Sodium <5 L 07/03/17 07/03/17 07/03/17 02:36 03:14 03:14 WBC 21.0 H RBC 6.28 H Hgb 18.3 H Hct 56.8 H Plt Count 141 L Neutrophils # 18.1 H Lymphocytes # Monocytes # 1.2 H PT INR Sodium 117 L* Potassium 5.9 H Chloride 85 L Carbon Dioxide 19 L BUN 65 H Creatinine 1.80 H Glucose 123 H POC Glucose (mg/dL) 128 H Osmolality Phosphorus 5.1 H Magnesium 2.9 H Total Bilirubin 17.5 H* AST 122 H ALT 142 H Alkaline Phosphatase 558 H Total Protein 6.1 L Albumin 3.2 L Urine Bilirubin Ur Random Sodium 07/03/17 07/03/17 05:50 07:05 WBC RBC Hgb Hct Plt Count Neutrophils # Lymphocytes # Monocytes # PT INR Sodium 120 L* Potassium Chloride Carbon Dioxide BUN Creatinine Glucose POC Glucose (mg/dL) Osmolality Phosphorus Magnesium Total Bilirubin AST ALT Alkaline Phosphatase Total Protein Albumin Urine Bilirubin 2+ H Ur Random Sodium - Diagnostic Findings Chest x-ray: image reviewed (No active pulmonary process noted, minimal strand like basilar atelectasis is noted.) Assessment and Plan Assessment: Impression: 1 acute hyponatremia, most likely secondary to hepatic failure, ascites, with excessive water retention and worsening hyponatremia. portal hypertension, and renin angiotensin aldosterone, and antidiuretic hormone activation. Water retention, and thereby hyponatremia. In this setting, treatment of hyponatremia is a challenge, and it will likely include fluid restriction, loop diuretics may be of no value, selective vasopressin receptor antagonist/vaptans would be of more value in this setting. I believe at this point. tolvaptan will be a good choice for treatment of the hyponatremia. We'll discuss with nephrology, presently they are treating his hyponatremia with 3% saline. 2 metastatic pancreatic/biliary adenocarcinoma 3 ascites secondary to adenocarcinoma, metastatic to liver., And decompensated liver disease. Patient is status post paracentesis 2. 4 acute hyperkalemia secondary to renal disease. Possibly acute kidney injury or prerenal azotemia. Patient is definitely high risk for developing hepatorenal syndrome. 5 history of tobacco dependence syndrome, patient is presently on nicotine patch. Recommendation: The present treatment plan, overall prognostic picture is extremely poor, his meld score was calculated to be 32, mortality considering the overall picture is even less then 3 months. Patient is also high risk for developing hypotension, and this could be treated with vasopressin, and possibly albumin infusions if needed. We'll continue to follow closely again prognosis is extremely poor. Agree with DO NOT RESUSCITATE CODE STATUS. Time with Patient: Greater than 30
[2017-07-03] MEDS ORDERED: TOLVAPTAN 30 MG TABLET PO ONE ×2 (12:00→17:00)
[2017-07-03] MEDS ORDERED: TOLVAPTAN 15 MG 1/2 TABLET PO ONE ×2 (12:00→16:45)
--- NOTE | 2017-07-03 13:14 | P.PN ---
Subjective Progress Note Date: 07/03/17 Principal diagnosis: pancreatic cancer metastatic Patient continued to be weak and lethargic but arousable to voice command patient was transferred to the intensive care unit due to hypotension and hyponatremia along with hyperkalemia. at the bedside motional and have a lot of concerns and questions. Objective - Vital Signs Vital signs: Vital Signs Temp 98.2 F 07/03/17 12:00 Pulse 86 07/03/17 12:00 Resp 15 07/03/17 12:00 BP 110/75 07/03/17 12:00 Pulse Ox 95 07/03/17 12:00 Intake & Output 07/02/17 07/03/17 07/03/17 18:59 06:59 18:59 Intake Total 650 1590 Output Total 1040 850 Balance -390 740 Weight 111.13 kg 108.5 kg Intake: IV 110 1180 0.9 NaCl- Flush 20 Sodium Chloride 0.9% 1, 1000 000 ml @ 999 mls/hr IV . Q1H1M ONE Rx#:[id number] Sodium Chloride 3%( 90 180 Hypertonic) 500 ml @ 30 mls/hr IV .[id number] [facility] Rx #:[id number] Intake, IV Titration 50 Amount Albumin Human 25% 50 ml 50 In Empty Bag 1 bag @ 100 mls/hr IVPB ONCE ONE Rx#: [id number] Oral 540 360 Output: Urine 1040 850 Stool 0 Other: Voiding Method Indwelling Catheter Indwelling Catheter # Voids 1 1 - Exam Gen.: in stated age, lethargic Heart: Normal S1-S2 Lungs: Clear to auscultation bilaterally Abdomen: Soft, no tenderness, positive bowel sounds in all 4 quadrant no guarding or rebound, positive for distention and ascites wave Skin: Yellow skin and sclera Psych: Alert and oriented 3 Neuro: No focal deficit far check - Labs CBC & Chem 7: 07/03/17 03:14 07/03/17 10:56 Labs: Abnormal Lab Results - Last 24 Hours (Table) 07/02/17 07/02/17 07/02/17 Range/Units 13:10 16:30 17:54 WBC (3.8-10.6) k/uL RBC (4.30-5.90) m/uL Hgb (13.0-17.5) gm/dL Hct (39.0-53.0) % Plt Count (150-450) k/uL Neutrophils # (1.3-7.7) k/uL Monocytes # (0-1.0) k/uL PT 14.0 H (9.0-12.0) sec INR 1.5 H (<1.2) Sodium 120 L* (137-145) mmol/L Potassium (3.5-5.1) mmol/L Chloride (98-107) mmol/L Carbon Dioxide (22-30) mmol/L BUN (9-20) mg/dL Creatinine (0.66-1.25) mg/dL Glucose (74-99) mg/dL POC Glucose (mg/dL) (75-99) mg/dL Phosphorus (2.5-4.5) mg/dL Magnesium (1.6-2.3) mg/dL Total Bilirubin (0.2-1.3) mg/dL AST (17-59) U/L ALT (21-72) U/L Alkaline Phosphatase (38-126) U/L Total Protein (6.3-8.2) g/dL Albumin (3.5-5.0) g/dL Urine Bilirubin (Negative) Ur Random Sodium <5 L (30-90) mmol/L 07/03/17 07/03/17 07/03/17 Range/Units 00:05 02:36 03:14 WBC 21.0 H (3.8-10.6) k/uL RBC 6.28 H (4.30-5.90) m/uL Hgb 18.3 H (13.0-17.5) gm/dL Hct 56.8 H (39.0-53.0) % Plt Count 141 L (150-450) k/uL Neutrophils # 18.1 H (1.3-7.7) k/uL Monocytes # 1.2 H (0-1.0) k/uL PT (9.0-12.0) sec INR (<1.2) Sodium 117 L* (137-145) mmol/L Potassium (3.5-5.1) mmol/L Chloride (98-107) mmol/L Carbon Dioxide (22-30) mmol/L BUN (9-20) mg/dL Creatinine (0.66-1.25) mg/dL Glucose (74-99) mg/dL POC Glucose (mg/dL) 128 H (75-99) mg/dL Phosphorus (2.5-4.5) mg/dL Magnesium (1.6-2.3) mg/dL Total Bilirubin (0.2-1.3) mg/dL AST (17-59) U/L ALT (21-72) U/L Alkaline Phosphatase (38-126) U/L Total Protein (6.3-8.2) g/dL Albumin (3.5-5.0) g/dL Urine Bilirubin (Negative) Ur Random Sodium (30-90) mmol/L 07/03/17 07/03/17 07/03/17 Range/Units 03:14 05:50 07:05 WBC (3.8-10.6) k/uL RBC (4.30-5.90) m/uL Hgb (13.0-17.5) gm/dL Hct (39.0-53.0) % Plt Count (150-450) k/uL Neutrophils # (1.3-7.7) k/uL Monocytes # (0-1.0) k/uL PT (9.0-12.0) sec INR (<1.2) Sodium 117 L* 120 L* (137-145) mmol/L Potassium 5.9 H (3.5-5.1) mmol/L Chloride 85 L (98-107) mmol/L Carbon Dioxide 19 L (22-30) mmol/L BUN 65 H (9-20) mg/dL Creatinine 1.80 H (0.66-1.25) mg/dL Glucose 123 H (74-99) mg/dL POC Glucose (mg/dL) (75-99) mg/dL Phosphorus 5.1 H (2.5-4.5) mg/dL Magnesium 2.9 H (1.6-2.3) mg/dL Total Bilirubin 17.5 H* (0.2-1.3) mg/dL AST 122 H (17-59) U/L ALT 142 H (21-72) U/L Alkaline Phosphatase 558 H (38-126) U/L Total Protein 6.1 L (6.3-8.2) g/dL Albumin 3.2 L (3.5-5.0) g/dL Urine Bilirubin 2+ H (Negative) Ur Random Sodium (30-90) mmol/L 07/03/17 07/03/17 Range/Units 10:54 10:56 WBC (3.8-10.6) k/uL RBC (4.30-5.90) m/uL Hgb (13.0-17.5) gm/dL Hct (39.0-53.0) % Plt Count (150-450) k/uL Neutrophils # (1.3-7.7) k/uL Monocytes # (0-1.0) k/uL PT (9.0-12.0) sec INR (<1.2) Sodium 120 L* (137-145) mmol/L Potassium 5.5 H (3.5-5.1) mmol/L Chloride (98-107) mmol/L Carbon Dioxide (22-30) mmol/L BUN (9-20) mg/dL Creatinine (0.66-1.25) mg/dL Glucose (74-99) mg/dL POC Glucose (mg/dL) (75-99) mg/dL Phosphorus (2.5-4.5) mg/dL Magnesium (1.6-2.3) mg/dL Total Bilirubin (0.2-1.3) mg/dL AST (17-59) U/L ALT (21-72) U/L Alkaline Phosphatase (38-126) U/L Total Protein (6.3-8.2) g/dL Albumin (3.5-5.0) g/dL Urine Bilirubin (Negative) Ur Random Sodium (30-90) mmol/L Assessment and Plan Assessment: 1. Acute hyponatremia. 2. Acute hyperkalemia. 3. Profound hypotension rule out septic shock. 4. Metastatic pancreatic cancer. 5. Tobacco dependency. 6. Obesity. 7. Malignant ascites. 8. Jaundice. 9. Intractable pain. 10. Protein calorie malnutrition, moderate. Patient was started on 3% infusion by nephrology and levo fed to maintain his map greater than 65 patient will be monitored in the intensive care unit and we will follow-up with critical care recommendation at the bedside to have multiple concerns and questions all addressed at the bedside and patient carries poor prognosis.
[2017-07-03] MEDS ORDERED: FUROSEMIDE 10 MG/ML 2 ML VIAL IV ONE (20:45)
[2017-07-03] MEDS: SENNOSIDES 8.6 MG TAB PO SCH (21:06)
[2017-07-03] MEDS: traZODone HCL 50 MG TAB PO SCH (21:06)
[2017-07-04] MEDS: MORPHINE SULFATE 4 MG/ML SYRINGE IVP PRN ×3 (02:12→20:55)
[2017-07-04 03:46] LABS: Albumin 2.9 g/dL (3.5-5.0); Calcium 8.8 mg/dL (8.4-10.2); Potassium 4.9 mmol/L (3.5-5.1); Total Protein 5.6 g/dL (6.3-8.2)
[2017-07-04 04:30] LABS: HGB 18.2 gm/dL (13.0-17.5); MCH 29.4 pg (25.0-35.0); MCHC 32.1 g/dL (31.0-37.0); MCV 91.4 fL (80.0-100.0); Mean Platelet Volume 8.4; Platelet Count 126 k/uL (150-450); RBC 6.21 m/uL (4.30-5.90); RDW 15.4 % (11.5-15.5); WBC 19.9 k/uL (3.8-10.6)
[2017-07-04 04:39] LABS: HCT 56.7 % (39.0-53.0)
[2017-07-04] MEDS ORDERED: FUROSEMIDE 10 MG/ML 2 ML VIAL IV ONE (05:11)
[2017-07-04 07:24] LABS: Band Neutrophils % 7 %; Neutrophils % (M) 83 %; Nucleated Red Blood Cells 0 /100 WBC (0-0); Total Cells Counted 100
[2017-07-04 07:26] LABS: Poikilocytosis (M) Present; Target Cells Present
[2017-07-04 07:27] LABS: Anisocytosis (M) Present
--- NOTE | 2017-07-04 07:45 | XR ---
EXAMINATION TYPE: XR chest 1V DATE OF EXAM: 07/04/2017 COMPARISON: Prior chest x-ray 07/03/2017 HISTORY: Shortness of breath TECHNIQUE: Single frontal view of the chest is obtained. FINDINGS: There is no focal air space opacity, pleural effusion, or pneumothorax seen. The cardiac silhouette size is within normal limits. Suspect some subsegmental basilar atelectatic change at th e left lung base. There are overlying cardiac leads. The osseous structures are intact. IMPRESSION: Basilar atelectasis.
[2017-07-04] MEDS: NICOTINE 21MG/24HR PATCH TRANSDERM SCH (08:27)
--- NOTE | 2017-07-04 08:46 | P.PN ---
Subjective Principal diagnosis: This 61-year-old male is seen in consultation for hyponatremia secondary to acute kidney injury. His recently diagnosed to have metastatic adenocarcinoma of the pancreas with positive cytology in the sciatic fluid. His hyponatremia has been difficult to control. He was treated with tTolvaptan 15 mg yesterday at noon and at 7 PM dated 07/03/2017, continuation of 3% saline. Because of no response he was additionally given Lasix last night and again earlier this morning 20 mg 2 times with response and improvement in hyponatremia from 117- 126 over the last approximately 30 some hours. Currently he remains on 3%. Sodium is 127 this morning. He is awake alert but in pain and is being sedated and given morphine. He is on room air. He underwent paracentesis day before yesterday on 07/02/2017, second time with 5 L taken off. After that his blood pressure is somewhat low. Blood pressures were in the 110 range now is in the 90s to 100 range. His creatinine has improved additionally. History of present illness-Mr. Marie is a pleasant male who was in his normal state of health, until early May, on 06/13/17 he presented to the emergency department with CC of persistent and progressive LUQ abdominal pain x 3 days, no identified aggravating factors, pain would be temporarily relieved with belching or bowel movement, associated with fevers, sweats, chills, new onset constipation with occasional diarrhea, no nausea or vomiting. 06/13/17 CT AP massive ascites, multiple low density liver masses consistent with metastatic disease, low-density 5 cm mass at the tail of the pancreas. 06/18/17 paracentesis was done with 9.2 L removed, cytology resulted with adenocarcinoma in the fluid , 06/25/17 7.7L removed, liver biopsy 06/29, pt was autoanticoagulated from liver involvement and required vit K, bilirubin was 5.1, Ca19.9 was 79 and CEA was 27. As stated above pt was in office today for f/u and results. Objective - Vital Signs Vital signs: Vital Signs Temp 97.4 F L 07/04/17 08:00 Pulse 91 07/04/17 08:00 Resp 19 07/04/17 08:00 BP 101/88 07/04/17 08:00 Pulse Ox 94 L 07/04/17 08:00 Intake & Output 07/03/17 07/04/17 07/04/17 18:59 06:59 18:59 Intake Total 1870 870 270 Output Total 1250 2320 200 Balance 620 -1450 70 Weight 109.3 kg Intake: IV 1360 390 30 Sodium Chloride 0.9% 1, 1000 000 ml @ 999 mls/hr IV . Q1H1M ONE Rx#:[id number] Sodium Chloride 3%( 360 390 Hypertonic) 500 ml @ 30 mls/hr IV .[id number] [facility] Rx #:[id number] Sodium Chloride 3%( 30 Hypertonic) 500 ml @ 30 mls/hr IV .[id number] [facility] Rx #:[id number] Intake, IV Titration 50 Amount Albumin Human 25% 50 ml 50 In Empty Bag 1 bag @ 100 mls/hr IVPB ONCE ONE Rx#: [id number] Oral 460 480 240 Output: Urine 1250 2320 200 Stool 0 Other: Voiding Method Indwelling Catheter Indwelling Catheter Indwelling Catheter On examination because of sedation he is sleepy but arousable and oriented. HEENT exam no JVP neck is supple no facial asymmetry Lungs are clear to auscultation fair air entry bilaterally. Heart sounds are unremarkable for any murmur rub gallop normal sinus rhythm Abdomen is soft slightly distended Extremity exam was no edema Neurologically moves all his extremities but sleepy arousable oriented 3. - Labs CBC & Chem 7: 07/04/17 03:03 07/04/17 03:03 Labs: Abnormal Lab Results - Last 24 Hours (Table) 07/03/17 07/03/17 07/03/17 Range/Units 10:54 10:56 14:50 WBC (3.8-10.6) k/uL RBC (4.30-5.90) m/uL Hgb (13.0-17.5) gm/dL Hct (39.0-53.0) % Plt Count (150-450) k/uL Neutrophils # (Manual) (1.3-7.7) k/uL Lymphocytes # (Manual) (1.0-4.8) k/uL Sodium 120 L* 122 L (137-145) mmol/L Potassium 5.5 H (3.5-5.1) mmol/L Chloride (98-107) mmol/L Carbon Dioxide (22-30) mmol/L BUN (9-20) mg/dL Creatinine (0.66-1.25) mg/dL Glucose (74-99) mg/dL Magnesium (1.6-2.3) mg/dL Total Bilirubin (0.2-1.3) mg/dL AST (17-59) U/L ALT (21-72) U/L Alkaline Phosphatase (38-126) U/L Total Protein (6.3-8.2) g/dL Albumin (3.5-5.0) g/dL 07/03/17 07/04/17 07/04/17 Range/Units 19:07 00:22 03:03 WBC 19.9 H (3.8-10.6) k/uL RBC 6.21 H (4.30-5.90) m/uL Hgb 18.2 H (13.0-17.5) gm/dL Hct 56.7 H (39.0-53.0) % Plt Count 126 L (150-450) k/uL Neutrophils # (Manual) 17.90 H (1.3-7.7) k/uL Lymphocytes # (Manual) 0.40 L (1.0-4.8) k/uL Sodium 122 L 125 L (137-145) mmol/L Potassium (3.5-5.1) mmol/L Chloride (98-107) mmol/L Carbon Dioxide (22-30) mmol/L BUN (9-20) mg/dL Creatinine (0.66-1.25) mg/dL Glucose (74-99) mg/dL Magnesium (1.6-2.3) mg/dL Total Bilirubin (0.2-1.3) mg/dL AST (17-59) U/L ALT (21-72) U/L Alkaline Phosphatase (38-126) U/L Total Protein (6.3-8.2) g/dL Albumin (3.5-5.0) g/dL 07/04/17 Range/Units 03:03 WBC (3.8-10.6) k/uL RBC (4.30-5.90) m/uL Hgb (13.0-17.5) gm/dL Hct (39.0-53.0) % Plt Count (150-450) k/uL Neutrophils # (Manual) (1.3-7.7) k/uL Lymphocytes # (Manual) (1.0-4.8) k/uL Sodium 126 L (137-145) mmol/L Potassium (3.5-5.1) mmol/L Chloride 95 L (98-107) mmol/L Carbon Dioxide 18 L (22-30) mmol/L BUN 56 H (9-20) mg/dL Creatinine 1.40 H (0.66-1.25) mg/dL Glucose 123 H (74-99) mg/dL Magnesium 3.0 H (1.6-2.3) mg/dL Total Bilirubin 19.0 H* (0.2-1.3) mg/dL AST 139 H (17-59) U/L ALT 131 H (21-72) U/L Alkaline Phosphatase 590 H (38-126) U/L Total Protein 5.6 L (6.3-8.2) g/dL Albumin 2.9 L (3.5-5.0) g/dL Assessment and Plan Assessment: Impression 1. Resistant hyponatremia with acute kidney injury secondary to hypotension. In the presence of elevated creatinine as syndrome of SIADH is excluded by definition but he might have very high ADH because of both acute kidney injury as well as his malignancy. He has required a combination of 3% saline, and Tolvaptan 15 mg 2 doses yesterday with addition of Lasix to control his sodium and improve it from 117-127 over the last approximately 30 hours. 2. Acute kidney injury secondary to ascites, third spacing of fluid and low blood pressure basically same etiology as about, and slowly improving creatinine down to 1.4 with fair urine output. 3. Hyperkalemia secondary to acute kidney injury. Resolved 4. Pancreatic CA with metastatic to liver and ascites. 5. Walker catheter Recommendation. 1. Will discontinue the 3% saline, start salt tablets 1 g 3 times a day. 2. We will give him another dose of Tolvaptan 15 mg and if he is stable as far as sodium is concerned he can be transferred out to the regular floor in about 4 -6 hours. I want to make sure that he does not require to 3% back before being transferred him out. I'm told that the patient cannot be given on the floor 3. Continue to call me with sodium results as he needs Close monitoring of sodium every 4 hours until we are sure it's moving up.
[2017-07-04] MEDS ORDERED: TOLVAPTAN 30 MG TABLET PO ONE ×2 (09:00)
[2017-07-04] MEDS ORDERED: TOLVAPTAN 15 MG 1/2 TABLET PO ONE (09:00)
[2017-07-04] MEDS: SODIUM BICARBONATE TAB 650 MG TAB PO SCH ×3 (09:38→20:46)
[2017-07-04] MEDS: SODIUM CHLORIDE TAB 1 GM TAB PO SCH ×3 (09:38→20:46)
--- NOTE | 2017-07-04 12:24 | P.PN ---
Subjective Progress Note Date: 07/04/17 Principal diagnosis: pancreatic cancer metastatic Patient was transferred out of the ICU this morning back to the oncology floor and seems to be at baseline mental status where he is lethargic but arousable to voice command patient is denying chest pain, shortness breath, nausea, vomiting, abdominal pain or Objective - Vital Signs Vital signs: Vital Signs Temp 97.4 F L 07/04/17 08:00 Pulse 93 07/04/17 09:00 Resp 12 07/04/17 11:44 BP 101/88 07/04/17 09:00 Pulse Ox 96 07/04/17 09:00 Intake & Output 07/03/17 07/04/17 07/04/17 18:59 06:59 18:59 Intake Total 1870 870 270 Output Total 1250 2320 300 Balance 620 -1450 -30 Weight 109.3 kg Intake: IV 1360 390 30 Sodium Chloride 0.9% 1, 1000 000 ml @ 999 mls/hr IV . Q1H1M ONE Rx#:[id number] Sodium Chloride 3%( 360 390 Hypertonic) 500 ml @ 30 mls/hr IV .[id number] [facility] Rx #:[id number] Sodium Chloride 3%( 30 Hypertonic) 500 ml @ 30 mls/hr IV .[id number] [facility] Rx #:[id number] Intake, IV Titration 50 Amount Albumin Human 25% 50 ml 50 In Empty Bag 1 bag @ 100 mls/hr IVPB ONCE ONE Rx#: [id number] Oral 460 480 240 Output: Urine 1250 2320 300 Stool 0 0 Other: Voiding Method Indwelling Catheter Indwelling Catheter Urinal # Voids 2 - Exam Gen.: in stated age, lethargic Heart: Normal S1-S2 Lungs: Clear to auscultation bilaterally Abdomen: Soft, no tenderness, positive bowel sounds in all 4 quadrant no guarding or rebound, positive for distention and ascites wave Skin: Yellow skin and sclera Psych: Alert and oriented 3 Neuro: No focal deficit far check - Labs CBC & Chem 7: 07/04/17 03:03 07/04/17 08:11 Labs: Abnormal Lab Results - Last 24 Hours (Table) 07/03/17 07/03/17 07/04/17 Range/Units 14:50 19:07 00:22 WBC (3.8-10.6) k/uL RBC (4.30-5.90) m/uL Hgb (13.0-17.5) gm/dL Hct (39.0-53.0) % Plt Count (150-450) k/uL Neutrophils # (Manual) (1.3-7.7) k/uL Lymphocytes # (Manual) (1.0-4.8) k/uL Sodium 122 L 122 L 125 L (137-145) mmol/L Chloride (98-107) mmol/L Carbon Dioxide (22-30) mmol/L BUN (9-20) mg/dL Creatinine (0.66-1.25) mg/dL Glucose (74-99) mg/dL Magnesium (1.6-2.3) mg/dL Total Bilirubin (0.2-1.3) mg/dL AST (17-59) U/L ALT (21-72) U/L Alkaline Phosphatase (38-126) U/L Total Protein (6.3-8.2) g/dL Albumin (3.5-5.0) g/dL 07/04/17 07/04/17 07/04/17 Range/Units 03:03 03:03 08:11 WBC 19.9 H (3.8-10.6) k/uL RBC 6.21 H (4.30-5.90) m/uL Hgb 18.2 H (13.0-17.5) gm/dL Hct 56.7 H (39.0-53.0) % Plt Count 126 L (150-450) k/uL Neutrophils # (Manual) 17.90 H (1.3-7.7) k/uL Lymphocytes # (Manual) 0.40 L (1.0-4.8) k/uL Sodium 126 L 127 L (137-145) mmol/L Chloride 95 L (98-107) mmol/L Carbon Dioxide 18 L (22-30) mmol/L BUN 56 H (9-20) mg/dL Creatinine 1.40 H (0.66-1.25) mg/dL Glucose 123 H (74-99) mg/dL Magnesium 3.0 H (1.6-2.3) mg/dL Total Bilirubin 19.0 H* (0.2-1.3) mg/dL AST 139 H (17-59) U/L ALT 131 H (21-72) U/L Alkaline Phosphatase 590 H (38-126) U/L Total Protein 5.6 L (6.3-8.2) g/dL Albumin 2.9 L (3.5-5.0) g/dL Assessment and Plan Assessment: 1. Acute hyponatremia. 2. Acute hyperkalemia. 3. Profound hypotension rule out septic shock. 4. Metastatic pancreatic cancer. 5. Tobacco dependency. 6. Obesity. 7. Malignant ascites. 8. Jaundice. 9. Intractable pain. 10. Protein calorie malnutrition, moderate. 11. Leukocytosis. 12. Elevated bilirubin Patient's sodium has improved from 117-127 in the last 30 hours and 3% the drip was discontinued by nephrology. Patient received 2 doses of Tolvaptan and currently off infusion. Will follow up with nephrology recommendation regarding hyponatremia and I would like to consult director social service regarding his poor prognosis and need for palliative care at this point we will discuss further with oncology prognosis and treatment plan. I would like to consult infectious disease regarding his leukocytosis. prognosis remained guarded
--- NOTE | 2017-07-04 16:52 | P.CONS ---
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 Apparently on June 11 he was having increasing abdominal pain and the following day he went to urgent care. He relates that if he Balster had a good bowel movement he would have some improvement of his abdominal discomfort it was not having fevers chills or rigors. The pain started to increase and consequently came to the emergency center on 06/13/2017. At that point in time because of his abdominal pain and what appeared to be some swelling to his obese abdomen imaging studies were performed. There is evidence of significant ascites. Evidence of multiple liver masses as well as a significant mass in the tail of his pancreas. On June 18 an ultrasound-guided paracentesis was performed and 19 L of fluid was removed. Cytology was positive for adenocarcinoma the fluid consistent with a gastrointestinal primary, most likely pancreatic. On had a repeated paracentesis with some improvement of his status. He has had outpatient workup that has been performed that revealed evidence of an elevated INR to 2 distal improvement has been rapidly climbing on June 19 it was only 5.1, currently it is 18. The patient has had his liver biopsy shows evidence of the adenocarcinoma pancreaticobiliary origin. The patient was admitted from the office because of increasing pain, increasing ascites, increasing bilirubin and declining mental status. The patient was found at that evidence of significant hyponatremia thought to be due to his acute kidney injury . He's been treated with 3% saline and fortunately his sodium has increased and apparently his mental status is improved. Hyperkalemia has improved and the creatinine has gone from 1.8-1.4. There is noted to be a leukocytosis and infectious diseases consultation was requested. Review of Systems Patient feels poorly, his abdominal pain is improved after his most recent paracentesis but persistent level for, has chronic shortness of breath is improved after his paracentesis, has significant fatigue and malaise HEENT:Denies headache or acute visual change. Denies sinus or mouth discomforts. Denies neck stiffness or pain. Denies significant oral cavity pain. Denies difficulty on swallowing. Lungs: Shortness of breath and cough for a baseline he is a chronic smoker but denies hemoptysis Cardiovascular: Denies significant shortness of breath, chest pain, chest wall pain, orthopnea, dyspnea on exertion, syncope Gastrointestinal: As per the HPI is has significant ascites it is not been tapped twice his chronic abdominal pain especially in the right upper quadrant, denies nausea or emesis is on a fluid restriction because of his low sodium Musculoskeletal: denies significant myalgias or arthralgias. No new joint swelling. Denies new back pain. Skin: Denies new rash or lesions. No new ulcers or wounds are related.. Is noted to be jaundiced though Neuro: Has generalized weakness and significant increasing fatigue over the last 4 weeks Psychiatric: Is anxious and depressed about his acute diagnosis of metastatic pancreatic cancer Endocrine: Found fatigue and has developed significant ascites Past Medical History Past Medical History: CVA/TIA Additional Past Medical History / Comment(s): past Shingles left forearm, [employer]CUSS[employer]( PLAYED FOOTBALL), 'pancreatic mass /liver mass" had a paracentesis and liver bx 06-29-17 waiting results. , CVA in 2015 with no residuals. History of Any Multi-Drug Resistant Organisms: None Reported Past Surgical History: Orthopedic Surgery Additional Past Surgical History / Comment(s): R hand sx to remove a peice of metal removed, vasectomy Past Anesthesia/Blood Transfusion Reactions: Motion Sickness Additional Past Anesthesia/Blood Transfusion Reaction / Comm: clausterphobia Additional Psychological History / Comment(s): and lives in the family home. Adult children. No experience. No international travel. No animal exposures. Ongoing tobacco smoking but denies recreational drug use or significant alcohol use Smoking Status: Current every day smoker - Past Family History Mother Family Medical History: Diabetes Mellitus, Hypertension Additional Family Medical History / Comment(s): Mother was 82 yrs old when she . Father Family Medical History: COPD Additional Family Medical History / Comment(s): Father is 82 yrs old. Sister(s) Additional Family Medical History / Comment(s): Patient has 2 sisters with no major medical problems. Patient does not have any brothers. Patient has 2 sons are healthy. Medications and Allergies Home Medications and Allergies Comment(s): Current Medications Fentanyl (Duragesic 25mcg/Hr Patch) 1 patch TRANSDERM Q72H [facility] Last Admin: 07/04/17 15:49 Dose: 1 patch Lactulose (Cephulac) 30 gm PO TID PRN PRN Reason: Constipation Morphine Sulfate (Morphine Sulfate (Inj)) 5 mg IVP Q2HR PRN PRN Reason: Pain Last Admin: 07/04/17 06:52 Dose: 5 mg Naloxone HCl (Narcan) 0.2 mg IV Q2M PRN PRN Reason: Opioid Reversal Nicotine (Habitrol 21mg/24hr Patch) 1 patch TRANSDERM DAILY [facility] Last Admin: 07/04/17 08:27 Dose: 1 patch Senna (Senokot) 17.2 mg PO [facility] Last Admin: 07/03/17 21:06 Dose: 17.2 mg Sodium Bicarbonate (Sodium Bicarbonate Tab) 650 mg PO TID [facility] Last Admin: 07/04/17 15:49 Dose: 650 mg Sodium Chloride (Sodium Chloride Tab) 1 gm PO TID [facility] Last Admin: 07/04/17 15:49 Dose: 1 gm Trazodone HCl (Desyrel) 50 mg PO [facility] Last Admin: 07/03/17 21:06 Dose: 50 mg Home Medications Medication Instructions Recorded Confirmed Type Ondansetron [Zofran] 4 mg PO Q6H PRN #24 tab 06/18/17 07/01/17 Rx HYDROcodone/APAP 5-325MG [[place] 1 tab PO TID PRN 06/28/17 07/01/17 History 5-325] Lactulose [Cephulac] 20 gm PO TID 06/28/17 07/01/17 History Furosemide [Lasix] 40 mg PO BID #60 tablet 06/30/17 07/01/17 Rx Nicotine 21Mg/24Hr Patch [Habitrol] 1 patch TRANSDERM DAILY #30 patch 06/30/17 07/01/17 Rx Spironolactone [Aldactone] 50 mg PO DAILY #60 tab 06/30/17 07/01/17 Rx Allergies Allergy/AdvReac Type Severity Reaction Status Date / Time No Known Allergies Allergy Verified 06/28/17 11:28 Physical Exam Vitals: Vital Signs Temp Pulse Resp BP Pulse Ox 07/04/17 14:25 12 07/04/17 14:01 12 07/04/17 11:44 12 07/04/17 11:43 12 07/04/17 09:00 93 12 101/88 96 07/04/17 08:00 97.4 F L 91 19 101/88 94 L 07/04/17 07:00 88 11 L 112/71 95 07/04/17 06:00 88 13 122/74 96 07/04/17 05:00 86 11 L 98/70 95 07/04/17 04:00 93 10 L 107/64 95 07/04/17 03:00 91 10 L 116/78 95 07/04/17 02:00 88 11 L 101/62 97 07/04/17 01:00 91 10 L 92/69 96 07/04/17 00:00 98.0 F 70 10 L 94/66 94 L 07/03/17 23:00 90 12 99/73 94 L 07/03/17 22:00 87 14 106/68 95 07/03/17 21:00 87 12 91/69 96 07/03/17 20:00 97.8 F 87 12 92/62 94 L 07/03/17 19:00 86 10 L 97/67 95 07/03/17 18:00 86 12 95/62 94 L 07/03/17 17:00 84 15 103/61 95 Intake and Output 07/04/17 07/04/17 07/04/17 06:59 14:59 22:59 Intake Total 510 510 Output Total 1395 600 Balance -885 -90 Intake: IV 270 30 Sodium Chloride 3%( 270 Hypertonic) 500 ml @ 30 mls/hr IV .[id number] [facility] Rx #:[id number] Sodium Chloride 3%( 30 Hypertonic) 500 ml @ 30 mls/hr IV .[id number] [facility] Rx #:[id number] Oral 240 480 Output: Urine 1395 600 Stool 0 Other: Voiding Method Indwelling Catheter Urinal # Voids 2 Weight 109.3 kg 61-year-old male who has significant obesity, is grossly jaundiced is sleepy but cooperative HEENT: Conjunctiva are anicteric, also evidence of jaundice in the oral cavity without thrush Neck: The neck is supple without significant lymphadenopathy or thyromegaly. Lungs: There is symmetrical bilateral entry with expiratory wheezes scattered throughout the lung torres no pia bronchial sounds are heard Heart: Regular rate and rhythm with an audible S1-S2, no S3 positive S4. There is no significant murmur click or rub, PMI was nondisplaced. Abdomen: Abdomen is obese but also has extensive ascites, there is steady and tenderness to the right upper quadrant but I cannot palpate mass, no splenomegaly is noted there is no flank tenderness, no bruising to the abdominal wall or flanks. There is no drainage from the most recent paracentesis site. Extremities: The upper extremities have excellent pulses they are symmetric, no significant petechiae or telangiectasia. No splinter hemorrhages were noted. The lower extremities have only trace edema. The peripheral pulses were 2+ and symmetric. Neuro: The patient was arousable upon entry. He is minimally conversational, answers simple questions usually correctly. He was sleepy, didn't want to sit up, only followed a couple of the commands and seemed to be sleeping through other statements. He however was able to move upper and lower extremities freely. No evidence of any seizure activity, no evidence of asterixis as he that himself a few ice cubes. Results CBC & Chem 7: 07/04/17 03:03 07/04/17 13:41 Labs: Abnormal Lab Results - Last 24 Hours (Table) 07/03/17 07/04/17 07/04/17 Range/Units 19:07 00:22 03:03 WBC 19.9 H (3.8-10.6) k/uL RBC 6.21 H (4.30-5.90) m/uL Hgb 18.2 H (13.0-17.5) gm/dL Hct 56.7 H (39.0-53.0) % Plt Count 126 L (150-450) k/uL Neutrophils # (Manual) 17.90 H (1.3-7.7) k/uL Lymphocytes # (Manual) 0.40 L (1.0-4.8) k/uL Sodium 122 L 125 L (137-145) mmol/L Chloride (98-107) mmol/L Carbon Dioxide (22-30) mmol/L BUN (9-20) mg/dL Creatinine (0.66-1.25) mg/dL Glucose (74-99) mg/dL Magnesium (1.6-2.3) mg/dL Total Bilirubin (0.2-1.3) mg/dL AST (17-59) U/L ALT (21-72) U/L Alkaline Phosphatase (38-126) U/L Total Protein (6.3-8.2) g/dL Albumin (3.5-5.0) g/dL 05/20/18 05/20/18 05/20/18 Range/Units 03:03 08:11 13:41 WBC (3.8-10.6) k/uL RBC (4.30-5.90) m/uL Hgb (13.0-17.5) gm/dL Hct (39.0-53.0) % Plt Count (150-450) k/uL Neutrophils # (Manual) (1.3-7.7) k/uL Lymphocytes # (Manual) (1.0-4.8) k/uL Sodium 126 L 127 L 128 L (137-145) mmol/L Chloride 95 L (98-107) mmol/L Carbon Dioxide 18 L (22-30) mmol/L BUN 56 H (9-20) mg/dL Creatinine 1.40 H (0.66-1.25) mg/dL Glucose 123 H (74-99) mg/dL Magnesium 3.0 H (1.6-2.3) mg/dL Total Bilirubin 19.0 H* (0.2-1.3) mg/dL AST 139 H (17-59) U/L ALT 131 H (21-72) U/L Alkaline Phosphatase 590 H (38-126) U/L Total Protein 5.6 L (6.3-8.2) g/dL Albumin 2.9 L (3.5-5.0) g/dL Laboratory Results WBC 19.9 k/uL (3.8-10.6) H 07/04/17 03:03 RBC 6.21 m/uL (4.30-5.90) H 07/04/17 03:03 Hgb 18.2 gm/dL (13.0-17.5) H 07/04/17 03:03 Hct 56.7 % (39.0-53.0) H 07/04/17 03:03 MCV 91.4 fL (80.0-100.0) 07/04/17 03:03 MCH 29.4 pg (25.0-35.0) 07/04/17 03:03 MCHC 32.1 g/dL (31.0-37.0) 07/04/17 03:03 RDW 15.4 % (11.5-15.5) 07/04/17 03:03 Plt Count 126 k/uL (150-450) L 07/04/17 03:03 Neutrophils % 86 % 07/03/17 03:14 Neutrophils % (Manual) 83 % 07/04/17 03:03 Band Neutrophils % 7 % 07/04/17 03:03 Lymphocytes % 6 % 07/03/17 03:14 Lymphocytes % (Manual) 2 % 07/04/17 03:03 Monocytes % 6 % 07/03/17 03:14 Monocytes % (Manual) 5 % 07/04/17 03:03 Eosinophils % 1 % 07/03/17 03:14 Eosinophils % (Manual) 3 % 07/04/17 03:03 Basophils % 0 % 07/03/17 03:14 Neutrophils # 18.1 k/uL (1.3-7.7) H 07/03/17 03:14 Neutrophils # (Manual) 17.90 k/uL (1.3-7.7) H 07/04/17 03:03 Lymphocytes # 1.2 k/uL (1.0-4.8) 07/03/17 03:14 Lymphocytes # (Manual) 0.40 k/uL (1.0-4.8) L 07/04/17 03:03 Monocytes # 1.2 k/uL (0-1.0) H 07/03/17 03:14 Monocytes # (Manual) 1.00 k/uL (0-1.0) 07/04/17 03:03 Eosinophils # 0.3 k/uL (0-0.7) 07/03/17 03:14 Eosinophils # (Manual) 0.60 k/uL (0-0.7) 07/04/17 03:03 Basophils # 0.0 k/uL (0-0.2) 07/03/17 03:14 Nucleated RBCs 0 /100 WBC (0-0) 07/04/17 03:03 Manual Slide Review Performed 07/04/17 03:03 Toxic Granulation Present 07/02/17 06:57 Poikilocytosis (manual Present 07/04/17 03:03 Anisocytosis (manual) Present 07/04/17 03:03 Target Cells Present 07/04/17 03:03 PT 14.0 sec (9.0-12.0) H 07/02/17 13:10 INR 1.5 (<1.2) H 07/02/17 13:10 Sodium 128 mmol/L (137-145) L 07/04/17 13:41 Potassium 4.9 mmol/L (3.5-5.1) 07/04/17 03:03 Chloride 95 mmol/L (98-107) L 07/04/17 03:03 Carbon Dioxide 18 mmol/L (22-30) L 07/04/17 03:03 Anion Gap 13 mmol/L 07/04/17 03:03 BUN 56 mg/dL (9-20) H 07/04/17 03:03 Creatinine 1.40 mg/dL (0.66-1.25) H 07/04/17 03:03 Est GFR (CKD-EPI)AfAm 63 (>60 ml/min/1.73 sqM) 07/04/17 03:03 Est GFR (CKD-EPI)NonAf 54 (>60 ml/min/1.73 sqM) 07/04/17 03:03 Glucose 123 mg/dL (74-99) H 07/04/17 03:03 POC Glucose (mg/dL) 128 mg/dL (75-99) H 07/03/17 02:36 POC Glu Grades 9 Through 12 Teacher ID LeMere, Maddison 07/03/17 02:36 Osmolality 272 mosm/kg (280-301) L 07/02/17 06:57 Uric Acid 7.6 mg/dL (3.5-8.5) 07/04/17 08:11 Calcium 8.8 mg/dL (8.4-10.2) 07/04/17 03:03 Phosphorus 4.0 mg/dL (2.5-4.5) 07/04/17 03:03 Magnesium 3.0 mg/dL (1.6-2.3) H 07/04/17 03:03 Total Bilirubin 19.0 mg/dL (0.2-1.3) H* 07/04/17 03:03 AST 139 U/L (17-59) H 07/04/17 03:03 ALT 131 U/L (21-72) H 07/04/17 03:03 Alkaline Phosphatase 590 U/L (38-126) H 07/04/17 03:03 Total Protein 5.6 g/dL (6.3-8.2) L 07/04/17 03:03 Albumin 2.9 g/dL (3.5-5.0) L 07/04/17 03:03 Urine Color Dark Yellow 07/03/17 05:50 Urine Appearance Clear (Clear) 07/03/17 05:50 Urine pH 5.5 (5.0-8.0) 07/03/17 05:50 Ur Specific [place] 1.010 (1.001-1.035) 07/03/17 05:50 Urine Protein Negative (Negative) 07/03/17 05:50 Urine Glucose (UA) Negative (Negative) 07/03/17 05:50 Urine Ketones Negative (Negative) 07/03/17 05:50 Urine Blood Negative (Negative) 07/03/17 05:50 Urine Nitrite Negative (Negative) 07/03/17 05:50 Urine Bilirubin 2+ (Negative) H 07/03/17 05:50 Urine Urobilinogen 4.0 mg/dL (<2.0) 07/03/17 05:50 Ur Leukocyte Esterase Negative (Negative) 07/03/17 05:50 Urine Osmolality 347 mosm/kg (50-1400) 07/02/17 16:30 Ur Random Sodium <5 mmol/L (30-90) L 07/02/17 16:30 Assessment and Plan (1) Pancreatic cancer metastasized to liver Current Visit: Yes Status: Acute Code(s): C25.9 - MALIGNANT NEOPLASM OF PANCREAS, UNSPECIFIED; C78.7 - SECONDARY MALIG NEOPLASM OF LIVER AND INTRAHEPATIC BILE DUCT SNOMED Code(s): 929840255 (2) Malignant ascites Current Visit: Yes Status: Acute Code(s): R18.0 - MALIGNANT ASCITES SNOMED Code(s): 901849393 (3) Jaundice, hepatocellular Current Visit: Yes Status: Acute Code(s): K76.89 - OTHER SPECIFIED DISEASES OF LIVER SNOMED Code(s): 05679261 (4) Leukocytosis Narrative/Plan: 61-year-old male 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 Workup has occurred as per the circumstances above has been find evidence of pancreatic cancer with hepatic metastasis as well as malignant ascites. He is being followed by oncology and overall plans are in progress. The patient was admitted for treatment of his altered mental status thought to be due to the significant hyponatremia that is slowly responding from treatment from nephrology which is included hypertonic saline, fluid restriction and Tolvatan. The patient does have a significant leukocytosis it is been somewhat persistent. This is a reactive component to his significant hepatic metastasis. The patient does not appear to have underlying sepsis at this point in time. The ascitic fluid has been sent for culture and has been negative in the past. It with the patient being more comfortable now than he was several days ago strongly points away from any type of peritonitis. As of the patient's prognosis is extremely poor and there is notation that they will be talking about hospice in the morning. Current Visit: Yes Status: Acute Code(s): D72.829 - ELEVATED WHITE BLOOD CELL COUNT, UNSPECIFIED SNOMED Code(s): 383469182 (5) Thrombocytopenia Current Visit: Yes Status: Acute Code(s): D69.6 - THROMBOCYTOPENIA, UNSPECIFIED SNOMED Code(s): 112418486
--- NOTE | 2017-07-04 17:21 | P.PN ---
Subjective Progress Note Date: 07/04/17 Principal diagnosis: Metastatic pancreatic/biliary adenocarcinoma and hyponatremia This is a 61-year-old white male recently diagnosed as having metastatic adenocarcinoma, possibly pancreatic/biliary in origin. His initial presentation was on 06/13/2017, patient presented with abdominal pain mostly in the left upper quadrant. Patient was noted to have ascites. And multiple low- density liver masses consistent with metastatic disease. There was also a 5 cm mass at the tail of the pancreas. Paracentesis was done, 7.7 L were removed, and the ascites fluid came back positive for adenocarcinoma. Liver biopsy was done, and it was also positive for adenocarcinoma, likely pancreato-biliary in origin. Patient has been gradually deteriorating and going downhill for the last a few weeks. Has been complaining of severe abdominal pain, generalized weakness, fatigue, decreased appetite, and inability to eat. He was seen by the oncologist the day of admission, and he was basically admitted because of pain management, significantly low sodium, and for paracentesis since his ascites was getting worse. Patient was transferred to the ICU yesterday for infusion of 3% saline which was recommended by nephrology on the case. He is presently on 3% saline, and his sodium is today 120, sodium had been fluctuating between 117 and 120. His hyponatremia was felt to be related to intravascular depletion, and third spacing of fluids. I saw the patient in the ICU today, he is not the greatest historian, he seems to be generally weak, and he is presently on 3% saline. Denies any cough no wheezing no shortness of breath no chest pain. He is mostly complaining of profound weakness, fatigue, and intermittent episodes of abdominal pains. A shunt was noted to have leukocytosis with WBC count of 21.0, sodium is 120 potassium is 5.9. BUN is 65 creatinine 1.80 liver enzymes were noted to be elevated with a total bilirubin of 17.5. Transaminases were also noted to be elevated, and alkaline phosphatase of 558. Reevaluated today on 07/04/2017, patient remains in the ICU. Serum sodium is up to 127, patient did receive 3% saline, and he did receive tolvaptan. Patient is in no form of respiratory distress, he is hemodynamically stable, and I went ahead and recommended that to transfer the patient back to oncology. Liver enzymes were noted, total bilirubin is a 19. And alkaline phosphatase is 590. BUN is 56 creatinine 1.40. Objective - Vital Signs Vital signs: Vital Signs Temp 97.4 F L 07/04/17 08:00 Pulse 93 07/04/17 09:00 Resp 12 07/04/17 14:25 BP 101/88 07/04/17 09:00 Pulse Ox 96 07/04/17 09:00 Intake & Output 07/03/17 07/04/17 07/04/17 18:59 06:59 18:59 Intake Total 1870 870 510 Output Total 1250 2320 600 Balance 620 -1450 -90 Weight 109.3 kg Intake: IV 1360 390 30 Sodium Chloride 0.9% 1, 1000 000 ml @ 999 mls/hr IV . Q1H1M ONE Rx#:[id number] Sodium Chloride 3%( 360 390 Hypertonic) 500 ml @ 30 mls/hr IV .[id number] [facility] Rx #:[id number] Sodium Chloride 3%( 30 Hypertonic) 500 ml @ 30 mls/hr IV .[id number] [facility] Rx #:[id number] Intake, IV Titration 50 Amount Albumin Human 25% 50 ml 50 In Empty Bag 1 bag @ 100 mls/hr IVPB ONCE [facility] Rx#: [id number] Oral 460 480 480 Output: Urine 1250 2320 600 Stool 0 0 Other: Voiding Method Indwelling Catheter Indwelling Catheter Urinal # Voids 2 - Exam Physical Exam: Revealed a 61-year-old white male, awake, in no form of respiratory distress. Head: Atraumatic, normocephalic. HEENT:[Neck is supple.] [No neck masses.] [No thyromegaly.] [No JVD.] Chest: [Clear throughout, no crackles, no rhonchi, no wheezes.] Cardiac Exam: [Normal S1 and S2, no S3 gallop, no murmur.] Abdomen: [Soft, slightly tender on deep palpation, positive ascites, no rebound , no guarding. Positive bowel sounds. Extremities: [No clubbing, 1+ bipedal edema, no cyanosis.] Neurological Exam: Alert, oriented 3, no gross focal neurologic deficit. Lymphatics: No lymphadenopathy. Psychiatric: Normal mood affect and mental status examination. - Labs CBC & Chem 7: 07/04/17 03:03 05/20/18 13:41 Labs: Abnormal Lab Results - Last 24 Hours (Table) 07/03/17 07/04/17 07/04/17 Range/Units 19:07 00:22 03:03 WBC 19.9 H (3.8-10.6) k/uL RBC 6.21 H (4.30-5.90) m/uL Hgb 18.2 H (13.0-17.5) gm/dL Hct 56.7 H (39.0-53.0) % Plt Count 126 L (150-450) k/uL Neutrophils # (Manual) 17.90 H (1.3-7.7) k/uL Lymphocytes # (Manual) 0.40 L (1.0-4.8) k/uL Sodium 122 L 125 L (137-145) mmol/L Chloride (98-107) mmol/L Carbon Dioxide (22-30) mmol/L BUN (9-20) mg/dL Creatinine (0.66-1.25) mg/dL Glucose (74-99) mg/dL Magnesium (1.6-2.3) mg/dL Total Bilirubin (0.2-1.3) mg/dL AST (17-59) U/L ALT (21-72) U/L Alkaline Phosphatase (38-126) U/L Total Protein (6.3-8.2) g/dL Albumin (3.5-5.0) g/dL 07/04/17 07/04/17 07/04/17 Range/Units 03:03 08:11 13:41 WBC (3.8-10.6) k/uL RBC (4.30-5.90) m/uL Hgb (13.0-17.5) gm/dL Hct (39.0-53.0) % Plt Count (150-450) k/uL Neutrophils # (Manual) (1.3-7.7) k/uL Lymphocytes # (Manual) (1.0-4.8) k/uL Sodium 126 L 127 L 128 L (137-145) mmol/L Chloride 95 L (98-107) mmol/L Carbon Dioxide 18 L (22-30) mmol/L BUN 56 H (9-20) mg/dL Creatinine 1.40 H (0.66-1.25) mg/dL Glucose 123 H (74-99) mg/dL Magnesium 3.0 H (1.6-2.3) mg/dL Total Bilirubin 19.0 H* (0.2-1.3) mg/dL AST 139 H (17-59) U/L ALT 131 H (21-72) U/L Alkaline Phosphatase 590 H (38-126) U/L Total Protein 5.6 L (6.3-8.2) g/dL Albumin 2.9 L (3.5-5.0) g/dL Assessment and Plan Assessment: Impression: 1 acute hyponatremia, most likely secondary to hepatic failure, ascites, with excessive water retention and worsening hyponatremia. portal hypertension, and renin angiotensin aldosterone, and antidiuretic hormone activation. Water retention, and thereby hyponatremia. In this setting, treatment of hyponatremia is a challenge, and it will likely include fluid restriction, loop diuretics may be of no value, selective vasopressin receptor antagonist/vaptans would be of more value in this setting. Patient's serum sodium today is improving, it is up to 127 patient responded well to 3% saline, and tolvaptan, patient will need to remain on fluid restrictions and will continue to monitor his sodium closely. 2 metastatic pancreatic/biliary adenocarcinoma 3 ascites secondary to adenocarcinoma, metastatic to liver., And decompensated liver disease. Patient is status post paracentesis 2. 4 acute hyperkalemia secondary to renal disease. Possibly acute kidney injury or prerenal azotemia. Patient is definitely high risk for developing hepatorenal syndrome. 5 history of tobacco dependence syndrome, patient is presently on nicotine patch. Recommendation: Continue present treatment plan, continue fluid restrictions, overall prognostic picture is poor considering his pancreatic biliary carcinoma. Patient will be transferred to oncology today. Time with Patient: Less than 30
[2017-07-04] MEDS: SENNOSIDES 8.6 MG TAB PO SCH (20:46)
[2017-07-04] MEDS: traZODone HCL 50 MG TAB PO SCH (20:46)
[2017-07-05] MEDS: MORPHINE SULFATE 4 MG/ML SYRINGE IVP PRN ×3 (01:44→21:22)
--- NOTE | 2017-07-05 07:52 | XR ---
EXAMINATION TYPE: XR chest 1V DATE OF EXAM: 07/05/2017 COMPARISON: 07/04/2017 HISTORY: 61-year-old male short of breath TECHNIQUE: Single frontal view of the chest is obtained. FINDINGS: Excessive lordotic positioning. Patient is also rotated towards the left. Heart appears normal size. Hazy peripheral lung densities especially at the left base due to patient positioning and overlying s oft tissue density. No definite consolidation or pleural effusion. IMPRESSION: No definite acute process. Left base in particular is limited due to combination of patient positioni ng and underpenetration.
[2017-07-05 07:57] LABS: Albumin 2.9 g/dL (3.5-5.0); Magnesium 3.1 mg/dL (1.6-2.3); Potassium 5.4 mmol/L (3.5-5.1); Total Protein 5.7 g/dL (6.3-8.2)
[2017-07-05 08:10] LABS: Total Bilirubin 19.1 mg/dL (0.2-1.3)
[2017-07-05] MEDS: SODIUM BICARBONATE TAB 650 MG TAB PO SCH ×3 (08:34→21:24)
[2017-07-05] MEDS: NICOTINE 21MG/24HR PATCH TRANSDERM SCH (08:34)
[2017-07-05] MEDS: SODIUM CHLORIDE TAB 1 GM TAB PO SCH ×3 (08:34→21:24)
[2017-07-05 08:55] LABS: HGB 18.5 gm/dL (13.0-17.5); MCH 29.3 pg (25.0-35.0); MCHC 31.5 g/dL (31.0-37.0); Mean Platelet Volume 8.6; Platelet Count 131 k/uL (150-450); RBC 6.31 m/uL (4.30-5.90); RDW 15.5 % (11.5-15.5)
[2017-07-05 08:58] LABS: HCT 58.7 % (39.0-53.0)
[2017-07-05 09:30] LABS: Monocytes # (M) 1.32 k/uL (0-1.0); Myelocytes # (M) 0.44 k/uL (0); Myelocytes % 2 %; Neutrophils # (M) 19.36 k/uL (1.3-7.7); Neutrophils % (M) 88 %; Nucleated Red Blood Cells 0 /100 WBC (0-0); Total Cells Counted 200
[2017-07-05 09:33] LABS: Large Platelets Present
[2017-07-05 09:34] LABS: Toxic Vacuolation Present
--- NOTE | 2017-07-05 10:25 | P.PN ---
Subjective Patient is seen in follow-up for hyponatremia and acute kidney injury. Sodium level is up to 127. Creatinine is 1.8 today. Patient's currently resting in bed. He somewhat confused. He wants a Popsicle. Vital signs are stable. General: The patient appeared well nourished and normally developed. HEENT: Head exam is unremarkable. Neck is without jugular venous distension. LUNGS: Lungs are clear to auscultation and percussion. Breath sounds decreased. HEART: Rate and Rhythm are regular. First and second heart sounds normal. No murmurs, rubs or gallops. ABDOMEN: Bowel sounds present. Distention noted. EXTREMITITES: No clubbing, cyanosis, or edema. Objective - Vital Signs Vital signs: Vital Signs Temp 97.9 F 07/05/17 07:18 Pulse 58 L 07/05/17 07:18 Resp 18 07/05/17 07:18 BP 104/66 07/05/17 07:18 Pulse Ox 95 07/05/17 07:18 Intake & Output 07/04/17 07/05/17 07/05/17 18:59 06:59 18:59 Intake Total 510 Output Total 600 200 Balance -90 -200 Weight 109 kg Intake: IV 30 Sodium Chloride 3%( 30 Hypertonic) 500 ml @ 30 mls/hr IV .[id number] [facility] Rx #:[id number] Oral 480 Output: Urine 600 200 Stool 0 Other: Voiding Method Urinal Urinal Urinal # Voids 2 2 - Labs CBC & Chem 7: 07/05/17 07:31 07/05/17 07:31 Labs: Abnormal Lab Results - Last 24 Hours (Table) 07/04/17 07/04/17 07/05/17 Range/Units 13:41 17:23 00:26 WBC (3.8-10.6) k/uL RBC (4.30-5.90) m/uL Hgb (13.0-17.5) gm/dL Hct (39.0-53.0) % Plt Count (150-450) k/uL Neutrophils # (Manual) (1.3-7.7) k/uL Monocytes # (Manual) (0-1.0) k/uL Myelocytes # (Manual) (0) k/uL Sodium 128 L 127 L 125 L (137-145) mmol/L Potassium (3.5-5.1) mmol/L Chloride (98-107) mmol/L BUN (9-20) mg/dL Creatinine (0.66-1.25) mg/dL Glucose (74-99) mg/dL Magnesium (1.6-2.3) mg/dL Total Bilirubin (0.2-1.3) mg/dL AST (17-59) U/L ALT (21-72) U/L Alkaline Phosphatase (38-126) U/L Total Protein (6.3-8.2) g/dL Albumin (3.5-5.0) g/dL 07/05/17 07/05/17 Range/Units 07:31 07:31 WBC 22.0 H (3.8-10.6) k/uL RBC 6.31 H (4.30-5.90) m/uL Hgb 18.5 H (13.0-17.5) gm/dL Hct 58.7 H (39.0-53.0) % Plt Count 131 L (150-450) k/uL Neutrophils # (Manual) 19.36 H (1.3-7.7) k/uL Monocytes # (Manual) 1.32 H (0-1.0) k/uL Myelocytes # (Manual) 0.44 H (0) k/uL Sodium 127 L (137-145) mmol/L Potassium 5.4 H (3.5-5.1) mmol/L Chloride 93 L (98-107) mmol/L BUN 60 H (9-20) mg/dL Creatinine 1.80 H (0.66-1.25) mg/dL Glucose 164 H (74-99) mg/dL Magnesium 3.1 H (1.6-2.3) mg/dL Total Bilirubin 19.1 H* (0.2-1.3) mg/dL AST 126 H (17-59) U/L ALT 141 H (21-72) U/L Alkaline Phosphatase 612 H (38-126) U/L Total Protein 5.7 L (6.3-8.2) g/dL Albumin 2.9 L (3.5-5.0) g/dL Assessment and Plan Plan: Assessment: 1. Hypervolemic hyponatremia secondary to ascites from liver metastasis. 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 Sodium level dropped with IV hydration. Status post 3% and tolvaptan. Sodium level 127 today. 2. Nonoliguric acute kidney injury secondary to ATN secondary to hepatorenal syndrome. No evidence of hydronephrosis noted on renal ultrasound. Elevated bilirubin can also cause ATN/pigment nephropathy. 3. Mild hyperkalemia secondary to acute kidney injury. 4. Metastatic carcinoma of pancreaticobiliary origin. Liver metastasis noted. 5. Ascites secondary to liver metastasis. Status post paracentesis on July 02 with 5.2 L drained. Plan: Maintain 1.5 L fluid restriction. Continue salt tabs 1 g 3 times daily. Repeat sodium level at 5 PM today. Discussed case with oncology. Overall prognosis poor.
--- NOTE | 2017-07-05 12:21 | P.PN ---
Subjective Progress Note Date: 07/05/17 Principal diagnosis: Pancreatic cancer with metastasis, malignant ascites, decompensated liver disease, severe hyponatremia, hyperkalemia, history of CVA. 61 yr old male patient of Dr. Young with past medical history of obesity, CVA, shingles, tobacco abuse, recently diagnosed metastatic disease with unknown primary with multiple liver mass and pancreatic mass at the pancreatic tail who underwent liver biopsy on 06/29. Patient was recently admitted on 06/18 for abdominal distention and weakness. He underwent CT abdomen previously on 06/13 which suggested large ascites, hyperdense lesion on the liver measuring 4 cm without bile duct dilation consistent with metastatic disease there was a 5 cm mass in the tail of the pancreas suspicious for cancer. Patient underwent 3 paracentesis so far, 9.2 L removed during the first paracentesis is an 7 L removed during the second and the last one was on with 8.3 L removed which was after 4 dyas from the second one. Cytology positive for adenocarcinoma in the fluid. Increased CEA 19.9 with normal CEA. During the last admission patient was noted to have a sodium of 122, elevated liver enzymes with bilirubin as high as 13.6 with increase in transaminase. Urine osmolarity at that time was 367, urine sodium was 15. Patient received 1 dose of Samsca. He was discharged on 06/30 as patient had a appointment with Dr. Vasquez and is currently He does complain of abdominal distention and lower extremity edema. He denies any nausea, vomiting. It is lactulose for regular bowel movements. INR today was 2. Liver biopsy was canceled. Vitamin K 5 mg given. Repeat INR tomorrow for possible liver biopsy. Patient comes in today been intractable nausea, associated with progressive abdominal pain and increased drowsiness. Vitals are stable with a blood pressure 127/74, respiratory rate 20, pulse rate 85 with labs suggestive of WBC 20.5 that continues to progress, increased hemoglobin 18.6, sodium 120 which dropped to 119 on administration of IV fluid which were stopped. Increase potassium to 5.2, chloride 87, creatinine 1.75, bilirubin 18, the increased AST to 200, ALT 194, alkaline phosphatase 854. Patient received 60 mg IV of Lasix. 07/05: Patient developed worsening Ascites might be going for Paracentesis, his hyponatremia slightly but better but not subtle is still seen nephrology regular basis with his severe comorbidity currently. Still apparently talk with oncology and family about hospice and comfort care. Objective - Vital Signs Vital signs: Vital Signs Temp 97.9 F 07/05/17 07:18 Pulse 58 L 07/05/17 07:18 Resp 18 07/05/17 07:18 BP 104/66 07/05/17 07:18 Pulse Ox 95 07/05/17 07:18 Intake & Output 07/04/17 07/05/17 07/05/17 18:59 06:59 18:59 Intake Total 510 Output Total 600 200 Balance -90 -200 Weight 109 kg Intake: IV 30 Sodium Chloride 3%( 30 Hypertonic) 500 ml @ 30 mls/hr IV .[id number] [facility] Rx #:[id number] Oral 480 Output: Urine 600 200 Stool 0 Other: Voiding Method Urinal Urinal Urinal # Voids 2 2 - Constitutional General appearance: Present: cooperative, disheveled, mild distress, obese. Absent: average body habitus, morbidly obese, no acute distress, severe distress , thin - EENT Eyes: Present: abnormal pupil, scleral icterus, normal appearance. Absent: anicteric sclerae, disc margins sharp, edentulous, EOMI, PERRLA, fundus normal, photophobia, dentition normal, poor dentition, ptosis ENT: Present: normal oropharynx, pharyngeal erythema. Absent: hard of hearing, hearing grossly normal, NA/AT, other, thrush, tonsillar exudates, tonsillar swelling Ears: bilateral: normal - Neck Neck: Present: normal ROM. Absent: lymphadenopathy, other, rigidity, stridor, thyromegaly Carotids: bilateral: upstroke normal Thyroid: bilateral: normal size - Respiratory Respiratory: bilateral: diminished, dullness - Cardiovascular Rhythm: regular Heart sounds: normal: S1, S2 Abnormal Heart Sounds: Present: systolic murmur - Gastrointestinal General gastrointestinal: Present: distended, hepatomegaly, scaphoid, splenomegaly. Absent: absent bowel sounds, decreased bowel sounds, hyperactive bowel sounds, normal bowel sounds, organomegaly, rigid, soft, tenderness, umbilical hernia, ventral hernia - Integumentary Integumentary: Present: normal, pale. Absent: calor, cellulitis, cyanotic, decreased turgor, flushed, jaundiced, normal turgor, rash, ulcer - Neurologic Neurologic: Present: CNII-XII intact - Musculoskeletal Musculoskeletal: Present: generalized weakness. Absent: gait normal, strength equal bilaterally, right sided weakness, left sided weakness - Psychiatric Psychiatric: Present: A&O x's 3, appropriate affect. Absent: intact judgment & insight - Labs CBC & Chem 7: 07/05/17 07:31 18 07:31 Labs: Abnormal Lab Results - Last 24 Hours (Table) 07/04/17 07/04/17 07/05/17 Range/Units 13:41 17:23 00:26 WBC (3.8-10.6) k/uL RBC (4.30-5.90) m/uL Hgb (13.0-17.5) gm/dL Hct (39.0-53.0) % Plt Count (150-450) k/uL Neutrophils # (Manual) (1.3-7.7) k/uL Monocytes # (Manual) (0-1.0) k/uL Myelocytes # (Manual) (0) k/uL Sodium 128 L 127 L 125 L (137-145) mmol/L Potassium (3.5-5.1) mmol/L Chloride (98-107) mmol/L BUN (9-20) mg/dL Creatinine (0.66-1.25) mg/dL Glucose (74-99) mg/dL Magnesium (1.6-2.3) mg/dL Total Bilirubin (0.2-1.3) mg/dL AST (17-59) U/L ALT (21-72) U/L Alkaline Phosphatase (38-126) U/L Total Protein (6.3-8.2) g/dL Albumin (3.5-5.0) g/dL 07/05/17 07/05/17 Range/Units 07:31 07:31 WBC 22.0 H (3.8-10.6) k/uL RBC 6.31 H (4.30-5.90) m/uL Hgb 18.5 H (13.0-17.5) gm/dL Hct 58.7 H (39.0-53.0) % Plt Count 131 L (150-450) k/uL Neutrophils # (Manual) 19.36 H (1.3-7.7) k/uL Monocytes # (Manual) 1.32 H (0-1.0) k/uL Myelocytes # (Manual) 0.44 H (0) k/uL Sodium 127 L (137-145) mmol/L Potassium 5.4 H (3.5-5.1) mmol/L Chloride 93 L (98-107) mmol/L BUN 60 H (9-20) mg/dL Creatinine 1.80 H (0.66-1.25) mg/dL Glucose 164 H (74-99) mg/dL Magnesium 3.1 H (1.6-2.3) mg/dL Total Bilirubin 19.1 H* (0.2-1.3) mg/dL AST 126 H (17-59) U/L ALT 141 H (21-72) U/L Alkaline Phosphatase 612 H (38-126) U/L Total Protein 5.7 L (6.3-8.2) g/dL Albumin 2.9 L (3.5-5.0) g/dL Assessment and Plan Plan: 1 hyponatremia likely secondary to liver failure. Sodium 121. Continue low- sodium and 1500 fluid restriction to stop Lasix 40 IV daily. Nephrology consulted for possible Avastan therapy. 2 pancreatic mass with metastatic disease to the liver with significant ascites. Last paracentesis on 06/29 Liver biopsy done on 06/29. Follows Dr. Christina vega possible treatment. Agents prognosis appeared to be very poor as ascites fluid is positive for adenocarcinoma. Elevated CA-19-9 9, CEA and normal alpha-fetoprotein suggesting metastatic disease to liver. 3 decompensated liver disease likely secondary to metastatic disease of the liver. patient has a meld score of 32 with 52% mortality in 3 months. Lactulose to prevent hepatic encephalopathy. Patient initiated on Lasix and Aldactone 4 ascites secondary to decompensated liver disease. Mild abdominal distention. We'll hold for ultrasound abdomen for now. Last paracentesis 3 days ago. Paracentesis today with interventional radiology. 5 tobacco use and dependence nicotine patch daily 6 hyperkalemia status post one dose of kayexalate 7 history of CVA with no residual - stable. CODE STATUS: DO NOT RESUSCITATE possible talk about hospice care.
[2017-07-05 13:30] VITALS: BMI 35.4
--- NOTE | 2017-07-05 14:02 | P.PN ---
Subjective Progress Note Date: 07/05/17 Principal diagnosis: Metastatic pancreatic/biliary adenocarcinoma and hyponatremia This is a 61-year-old white male recently diagnosed as having metastatic adenocarcinoma, possibly pancreatic/biliary in origin. His initial presentation was on 06/13/2017, patient presented with abdominal pain mostly in the left upper quadrant. Patient was noted to have ascites. And multiple low- density liver masses consistent with metastatic disease. There was also a 5 cm mass at the tail of the pancreas. Paracentesis was done, 7.7 L were removed, and the ascites fluid came back positive for adenocarcinoma. Liver biopsy was done, and it was also positive for adenocarcinoma, likely pancreato-biliary in origin. Patient has been gradually deteriorating and going downhill for the last a few weeks. Has been complaining of severe abdominal pain, generalized weakness, fatigue, decreased appetite, and inability to eat. He was seen by the oncologist the day of admission, and he was basically admitted because of pain management, significantly low sodium, and for paracentesis since his ascites was getting worse. Patient was transferred to the ICU yesterday for infusion of 3% saline which was recommended by nephrology on the case. He is presently on 3% saline, and his sodium is today 120, sodium had been fluctuating between 117 and 120. His hyponatremia was felt to be related to intravascular depletion, and third spacing of fluids. I saw the patient in the ICU today, he is not the greatest historian, he seems to be generally weak, and he is presently on 3% saline. Denies any cough no wheezing no shortness of breath no chest pain. He is mostly complaining of profound weakness, fatigue, and intermittent episodes of abdominal pains. A shunt was noted to have leukocytosis with WBC count of 21.0, sodium is 120 potassium is 5.9. BUN is 65 creatinine 1.80 liver enzymes were noted to be elevated with a total bilirubin of 17.5. Transaminases were also noted to be elevated, and alkaline phosphatase of 558. Reevaluated today on 07/04/2017, patient remains in the ICU. Serum sodium is up to 127, patient did receive 3% saline, and he did receive tolvaptan. Patient is in no form of respiratory distress, he is hemodynamically stable, and I went ahead and recommended that to transfer the patient back to oncology. Liver enzymes were noted, total bilirubin is a 19. And alkaline phosphatase is 590. BUN is 56 creatinine 1.40. On 07/05/2017 patient seen in follow-up. Resting in bed, laying flat in bed, denies any worsening dyspnea, he has large amount of abdominal ascites, and generalized swelling diffuse bruising, in addition to generalized jaundice. Currently on room air, and pulse ox is 95%, his hemodynamically stable, lung sounds are diminished, no rhonchi or wheezes noted on today's exam, patient is afebrile. Denies any fever or chills. Patient states he is awaiting the arrival of his to discuss hospice care. Today's labs were noted, patient' s serum sodium is 125, his renal profile is worsening. Prognosis is quite poor , and comfort care discussion is appropriate at this time. Objective - Vital Signs Vital signs: Vital Signs Temp 97.9 F 07/05/17 07:18 Pulse 58 L 07/05/17 07:18 Resp 18 07/05/17 07:18 BP 104/66 07/05/17 07:18 Pulse Ox 95 07/05/17 07:18 Intake & Output 07/04/17 07/05/17 07/05/17 18:59 06:59 18:59 Intake Total 510 Output Total 600 200 Balance -90 -200 Weight 109 kg 109 kg Intake: IV 30 Sodium Chloride 3%( 30 Hypertonic) 500 ml @ 30 mls/hr IV .[id number] [facility] Rx #:[id number] Oral 480 Output: Urine 600 200 Stool 0 Other: Voiding Method Urinal Urinal Urinal # Voids 2 2 - Exam Physical Exam: Revealed a 61-year-old white male, awake, in no form of respiratory distress. Patient was noted to be jaundice, with diffuse ecchymosis , generalized anasarca in addition to large abdominal ascites Head: Atraumatic, normocephalic. HEENT:[Neck is supple.] [No neck masses.] [No thyromegaly.] [No JVD.] Chest: [Clear throughout, no crackles, no rhonchi, no wheezes.] Cardiac Exam: [Normal S1 and S2, no S3 gallop, no murmur.] Abdomen: [Soft, slightly tender on deep palpation, positive ascites, no rebound , no guarding. Positive bowel sounds. Extremities: [No clubbing, 1+ bipedal edema, no cyanosis.] Neurological Exam: Alert, oriented 3, no gross focal neurologic deficit. Lymphatics: No lymphadenopathy. Psychiatric: Normal mood affect and mental status examination. - Labs CBC & Chem 7: 07/05/17 07:31 07/05/17 07:31 Labs: Abnormal Lab Results - Last 24 Hours (Table) 07/04/17 07/04/17 07/05/17 Range/Units 13:41 17:23 00:26 WBC (3.8-10.6) k/uL RBC (4.30-5.90) m/uL Hgb (13.0-17.5) gm/dL Hct (39.0-53.0) % Plt Count (150-450) k/uL Neutrophils # (Manual) (1.3-7.7) k/uL Monocytes # (Manual) (0-1.0) k/uL Myelocytes # (Manual) (0) k/uL Sodium 128 L 127 L 125 L (137-145) mmol/L Potassium (3.5-5.1) mmol/L Chloride (98-107) mmol/L BUN (9-20) mg/dL Creatinine (0.66-1.25) mg/dL Glucose (74-99) mg/dL Magnesium (1.6-2.3) mg/dL Total Bilirubin (0.2-1.3) mg/dL AST (17-59) U/L ALT (21-72) U/L Alkaline Phosphatase (38-126) U/L Total Protein (6.3-8.2) g/dL Albumin (3.5-5.0) g/dL 07/05/17 07/05/17 Range/Units 07:31 07:31 WBC 22.0 H (3.8-10.6) k/uL RBC 6.31 H (4.30-5.90) m/uL Hgb 18.5 H (13.0-17.5) gm/dL Hct 58.7 H (39.0-53.0) % Plt Count 131 L (150-450) k/uL Neutrophils # (Manual) 19.36 H (1.3-7.7) k/uL Monocytes # (Manual) 1.32 H (0-1.0) k/uL Myelocytes # (Manual) 0.44 H (0) k/uL Sodium 127 L (137-145) mmol/L Potassium 5.4 H (3.5-5.1) mmol/L Chloride 93 L (98-107) mmol/L BUN 60 H (9-20) mg/dL Creatinine 1.80 H (0.66-1.25) mg/dL Glucose 164 H (74-99) mg/dL Magnesium 3.1 H (1.6-2.3) mg/dL Total Bilirubin 19.1 H* (0.2-1.3) mg/dL AST 126 H (17-59) U/L ALT 141 H (21-72) U/L Alkaline Phosphatase 612 H (38-126) U/L Total Protein 5.7 L (6.3-8.2) g/dL Albumin 2.9 L (3.5-5.0) g/dL Assessment and Plan Assessment: Assessment: 1 acute hyponatremia, most likely secondary to hepatic failure, ascites, with excessive water retention and worsening hyponatremia. portal hypertension, and renin angiotensin aldosterone, and antidiuretic hormone activation. Water retention, and thereby hyponatremia. In this setting, treatment of hyponatremia is a challenge, and it will likely include fluid restriction, loop diuretics may be of no value, selective vasopressin receptor antagonist/vaptans would be of more value in this setting. Patient's serum sodium today is improving, it is up to 127 patient responded well to 3% saline, and tolvaptan, patient will need to remain on fluid restrictions and will continue to monitor his sodium closely. 2 metastatic pancreatic/biliary adenocarcinoma 3 ascites secondary to adenocarcinoma, metastatic to liver., And decompensated liver disease. Patient is status post paracentesis 2. 4 acute hyperkalemia secondary to renal disease. Possibly acute kidney injury or prerenal azotemia. Patient is definitely high risk for developing hepatorenal syndrome. 5 history of tobacco dependence syndrome, patient is presently on nicotine patch. Recommendation: Patient denies any acute distress, denies any acute dyspnea. He is on room air , maintaining O2 saturations above 92%. Today's chest x-ray was reviewed by Dr. Bishop and showed small lung volumes, probably related to patient's large abdominal ascites. Serum sodium is down to 125, and is awake alert, no evidence of any neurologic deficits, seizures. Denies very generally weak. Long-term prognosis is quite poor, and the patient is waiting for his to discuss enrollment in hospice. I performed a history & physical examination of the patient and discussed their management with my nurse practitioner, aRjni Holley. I reviewed the nurse practitioner's note and agree with the documented findings and plan of care. Lung sounds are positive diminished lung sounds. The findings and the impression was discussed with the patient. I attest to the documentation by the nurse practitioner. Time with Patient: Less than 30
--- NOTE | 2017-07-05 17:42 | P.PN ---
Subjective Progress Note Date: 07/05/17 Principal diagnosis: mmetastatic pancreatic adenocarcinoma Patient seen today in follow-up, he is laying on his side, he is currently denying pain, nausea, when asked what his goals are patient said "get my salt fixed". Objective - Vital Signs Vital signs: Vital Signs Temp 96.6 F L 07/05/17 14:40 Pulse 84 07/05/17 14:40 Resp 18 07/05/17 14:40 BP 115/75 07/05/17 14:40 Pulse Ox 98 07/05/17 14:40 Intake & Output 07/04/17 07/05/17 07/05/17 18:59 06:59 18:59 Intake Total 510 257 Output Total 600 200 Balance -90 57 Weight 109 kg 109 kg Intake: IV 30 Sodium Chloride 3%( 30 Hypertonic) 500 ml @ 30 mls/hr IV .[id number] [facility] Rx #:[id number] Oral 480 257 Output: Urine 600 200 Stool 0 Other: Voiding Method Urinal Urinal Urinal # Voids 2 2 - Constitutional General appearance: Present: no acute distress, obese - EENT Eyes: Present: scleral icterus - Respiratory Respiratory: bilateral: CTA, diminished - Cardiovascular Heart sounds: normal: S1, S2 - Peripheral edema leg Peripheral Edema: bilateral: Trace - Gastrointestinal Gastrointestinal Comment(s): massive distention, laying on left side dullness percussed two thirds of the abdomen, hard mass noted at right costal margin, patient did not have pain when pressed - Integumentary Integumentary: Present: jaundiced - Neurologic Neurologic Comment(s): no gross motor deficit - Musculoskeletal Musculoskeletal: Present: generalized weakness - Psychiatric Psychiatric: Present: A&O x's 3 - Labs CBC & Chem 7: 07/05/17 07:31 07/05/17 07:31 Labs: Abnormal Lab Results - Last 24 Hours (Table) 07/04/17 07/05/17 07/05/17 Range/Units 17:23 00:26 07:31 WBC 22.0 H (3.8-10.6) k/uL RBC 6.31 H (4.30-5.90) m/uL Hgb 18.5 H (13.0-17.5) gm/dL Hct 58.7 H (39.0-53.0) % Plt Count 131 L (150-450) k/uL Neutrophils # (Manual) 19.36 H (1.3-7.7) k/uL Monocytes # (Manual) 1.32 H (0-1.0) k/uL Myelocytes # (Manual) 0.44 H (0) k/uL Sodium 127 L 125 L (137-145) mmol/L Potassium (3.5-5.1) mmol/L Chloride (98-107) mmol/L BUN (9-20) mg/dL Creatinine (0.66-1.25) mg/dL Glucose (74-99) mg/dL Magnesium (1.6-2.3) mg/dL Total Bilirubin (0.2-1.3) mg/dL AST (17-59) U/L ALT (21-72) U/L Alkaline Phosphatase (38-126) U/L Total Protein (6.3-8.2) g/dL Albumin (3.5-5.0) g/dL 07/05/17 Range/Units 07:31 WBC (3.8-10.6) k/uL RBC (4.30-5.90) m/uL Hgb (13.0-17.5) gm/dL Hct (39.0-53.0) % Plt Count (150-450) k/uL Neutrophils # (Manual) (1.3-7.7) k/uL Monocytes # (Manual) (0-1.0) k/uL Myelocytes # (Manual) (0) k/uL Sodium 127 L (137-145) mmol/L Potassium 5.4 H (3.5-5.1) mmol/L Chloride 93 L (98-107) mmol/L BUN 60 H (9-20) mg/dL Creatinine 1.80 H (0.66-1.25) mg/dL Glucose 164 H (74-99) mg/dL Magnesium 3.1 H (1.6-2.3) mg/dL Total Bilirubin 19.1 H* (0.2-1.3) mg/dL AST 126 H (17-59) U/L ALT 141 H (21-72) U/L Alkaline Phosphatase 612 H (38-126) U/L Total Protein 5.7 L (6.3-8.2) g/dL Albumin 2.9 L (3.5-5.0) g/dL Assessment and Plan (1) Pancreatic cancer metastasized to liver Narrative/Plan: Patient just received diagnosis about 4 days ago. Patient was admitted from the office due to intractable pain and dehydration. pain is better controlled , patient is being hydrated but, liver and kidneys are not recovering. 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 Family meeting scheduled for tomorrow at 1 PM. Case was discussed with Nephrology and Internal Medicine. Current Visit: Yes Status: Acute Priority: High Code(s): C25.9 - MALIGNANT NEOPLASM OF PANCREAS, UNSPECIFIED; C78.7 - SECONDARY MALIG NEOPLASM OF LIVER AND INTRAHEPATIC BILE DUCT SNOMED Code(s): 437367402 (2) Neoplasm related pain Narrative/Plan: continue current analgesics, titrate for comfort, use caution due to altered liver metabolism. Current Visit: Yes Status: Acute Priority: High Code(s): G89.3 - NEOPLASM RELATED PAIN (ACUTE) (CHRONIC) SNOMED Code(s): 990094444 (3) Malignant ascites Current Visit: Yes Status: Acute Priority: High Code(s): R18.0 - MALIGNANT ASCITES SNOMED Code(s): 445183614 (4) Hyperbilirubinemia Current Visit: Yes Status: Acute Priority: High Code(s): E80.6 - OTHER DISORDERS OF BILIRUBIN METABOLISM SNOMED Code(s): 72991299
[2017-07-05] MEDS ORDERED: TOLVAPTAN 30 MG TABLET PO ONE (18:02)
[2017-07-05] MEDS: SENNOSIDES 8.6 MG TAB PO SCH (21:23)
[2017-07-05] MEDS: traZODone HCL 50 MG TAB PO SCH (21:24)
--- NOTE | 2017-07-05 23:06 | P.PN ---
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 Apparently on June 11 he was having increasing abdominal pain and the following day he went to urgent care. He relates that if he Balster had a good bowel movement he would have some improvement of his abdominal discomfort it was not having fevers chills or rigors. The pain started to increase and consequently came to the emergency center on 06/13/2017. At that point in time because of his abdominal pain and what appeared to be some swelling to his obese abdomen imaging studies were performed. There is evidence of significant ascites. Evidence of multiple liver masses as well as a significant mass in the tail of his pancreas. On June 18 an ultrasound-guided paracentesis was performed and 19 L of fluid was removed. Cytology was positive for adenocarcinoma the fluid consistent with a gastrointestinal primary, most likely pancreatic. On had a repeated paracentesis with some improvement of his status. He has had outpatient workup that has been performed that revealed evidence of an elevated INR to 2 distal improvement has been rapidly climbing on June 19 it was only 5.1, currently it is 18. The patient has had his liver biopsy shows evidence of the adenocarcinoma pancreaticobiliary origin. The patient was admitted from the office because of increasing pain, increasing ascites, increasing bilirubin and declining mental status. The patient was found at that evidence of significant hyponatremia thought to be due to his acute kidney injury . He's been treated with 3% saline and fortunately his sodium has increased and apparently his mental status is improved. Hyperkalemia has improved and the creatinine has gone from 1.8-1.4. 07/05/2017 reveals that the patient is stable, he received some pain medications but his is present. The patient remains frankly jaundice. Objective - Vital Signs Vital signs: Vital Signs Temp 98.6 F 07/05/17 20:53 Pulse 90 07/05/17 20:53 Resp 18 07/05/17 20:53 BP 105/62 07/05/17 20:53 Pulse Ox 94 L 07/05/17 20:53 Intake & Output 07/05/17 07/05/17 07/06/17 06:59 18:59 06:59 Intake Total 907 Output Total 500 Balance 407 Weight 109 kg 109 kg Intake: Oral 907 Output: Urine 500 Stool 0 Other: Voiding Method Urinal Urinal # Voids 2 1 2 - Exam 61-year-old male who has significant obesity, is grossly jaundiced is sleepy but cooperative HEENT: Conjunctiva are anicteric, also evidence of jaundice in the oral cavity without thrush Neck: The neck is supple without significant lymphadenopathy or thyromegaly. Lungs: There is symmetrical bilateral entry with expiratory wheezes scattered throughout the lung torres no pia bronchial sounds are heard Heart: Regular rate and rhythm with an audible S1-S2, no S3 positive S4. There is no significant murmur click or rub, PMI was nondisplaced. Abdomen: Abdomen is obese but also has extensive ascites, there is steady and tenderness to the right upper quadrant but I cannot palpate mass, no splenomegaly is noted there is no flank tenderness, no bruising to the abdominal wall or flanks. There is no drainage from the most recent paracentesis site. Extremities: The upper extremities have excellent pulses they are symmetric, no significant petechiae or telangiectasia. No splinter hemorrhages were noted. The lower extremities have only trace edema. The peripheral pulses were 2+ and symmetric. Neuro: The patient was arousable upon entry. He is minimally conversational, answers simple questions usually correctly. He was sleepy, didn't want to sit up, only followed a couple of the commands and seemed to be sleeping through other statements. He however was able to move upper and lower extremities freely. No evidence of any seizure activity, no evidence of asterixis as he that himself a few ice cubes. - Labs CBC & Chem 7: 07/05/17 07:31 07/05/17 17:02 Labs: Abnormal Lab Results - Last 24 Hours (Table) 07/05/17 07/05/17 07/05/17 Range/Units 00:26 07:31 07:31 WBC 22.0 H (3.8-10.6) k/uL RBC 6.31 H (4.30-5.90) m/uL Hgb 18.5 H (13.0-17.5) gm/dL Hct 58.7 H (39.0-53.0) % Plt Count 131 L (150-450) k/uL Neutrophils # (Manual) 19.36 H (1.3-7.7) k/uL Monocytes # (Manual) 1.32 H (0-1.0) k/uL Myelocytes # (Manual) 0.44 H (0) k/uL Sodium 125 L 127 L (137-145) mmol/L Potassium 5.4 H (3.5-5.1) mmol/L Chloride 93 L (98-107) mmol/L BUN 60 H (9-20) mg/dL Creatinine 1.80 H (0.66-1.25) mg/dL Glucose 164 H (74-99) mg/dL Magnesium 3.1 H (1.6-2.3) mg/dL Total Bilirubin 19.1 H* (0.2-1.3) mg/dL AST 126 H (17-59) U/L ALT 141 H (21-72) U/L Alkaline Phosphatase 612 H (38-126) U/L Total Protein 5.7 L (6.3-8.2) g/dL Albumin 2.9 L (3.5-5.0) g/dL 07/05/17 Range/Units 17:02 WBC (3.8-10.6) k/uL RBC (4.30-5.90) m/uL Hgb (13.0-17.5) gm/dL Hct (39.0-53.0) % Plt Count (150-450) k/uL Neutrophils # (Manual) (1.3-7.7) k/uL Monocytes # (Manual) (0-1.0) k/uL Myelocytes # (Manual) (0) k/uL Sodium 122 L (137-145) mmol/L Potassium (3.5-5.1) mmol/L Chloride (98-107) mmol/L BUN (9-20) mg/dL Creatinine (0.66-1.25) mg/dL Glucose (74-99) mg/dL Magnesium (1.6-2.3) mg/dL Total Bilirubin (0.2-1.3) mg/dL AST (17-59) U/L ALT (21-72) U/L Alkaline Phosphatase (38-126) U/L Total Protein (6.3-8.2) g/dL Albumin (3.5-5.0) g/dL Laboratory Results WBC 22.0 k/uL (3.8-10.6) H 07/05/17 07:31 RBC 6.31 m/uL (4.30-5.90) H 07/05/17 07:31 Hgb 18.5 gm/dL (13.0-17.5) H 07/05/17 07:31 Hct 58.7 % (39.0-53.0) H 07/05/17 07:31 MCV 93.0 fL (80.0-100.0) 07/05/17 07:31 MCH 29.3 pg (25.0-35.0) 07/05/17 07:31 MCHC 31.5 g/dL (31.0-37.0) 07/05/17 07:31 RDW 15.5 % (11.5-15.5) 07/05/17 07:31 Plt Count 131 k/uL (150-450) L 07/05/17 07:31 Neutrophils % 86 % 07/03/17 03:14 Neutrophils % (Manual) 88 % 07/05/17 07:31 Band Neutrophils % 7 % 07/04/17 03:03 Lymphocytes % 6 % 07/03/17 03:14 Lymphocytes % (Manual) 5 % 07/05/17 07:31 Monocytes % 6 % 07/03/17 03:14 Monocytes % (Manual) 6 % 07/05/17 07:31 Eosinophils % 1 % 07/03/17 03:14 Eosinophils % (Manual) 3 % 07/04/17 03:03 Basophils % 0 % 07/03/17 03:14 Myelocytes % 2 % 07/05/17 07:31 Neutrophils # 18.1 k/uL (1.3-7.7) H 07/03/17 03:14 Neutrophils # (Manual) 19.36 k/uL (1.3-7.7) H 07/05/17 07:31 Lymphocytes # 1.2 k/uL (1.0-4.8) 07/03/17 03:14 Lymphocytes # (Manual) 1.10 k/uL (1.0-4.8) 07/05/17 07:31 Monocytes # 1.2 k/uL (0-1.0) H 07/03/17 03:14 Monocytes # (Manual) 1.32 k/uL (0-1.0) H 07/05/17 07:31 Eosinophils # 0.3 k/uL (0-0.7) 07/03/17 03:14 Eosinophils # (Manual) 0.60 k/uL (0-0.7) 07/04/17 03:03 Basophils # 0.0 k/uL (0-0.2) 07/03/17 03:14 Myelocytes # (Manual) 0.44 k/uL (0) H 07/05/17 07:31 Nucleated RBCs 0 /100 WBC (0-0) 07/05/17 07:31 Manual Slide Review Performed 07/05/17 07:31 Toxic Granulation Present 07/02/17 06:57 Toxic Vacuolation Present 07/05/17 07:31 Large Platelets Present 07/05/17 07:31 Poikilocytosis (manual Present 07/04/17 03:03 Anisocytosis (manual) Present 07/04/17 03:03 Target Cells Present 07/04/17 03:03 PT 14.0 sec (9.0-12.0) H 07/02/17 13:10 INR 1.5 (<1.2) H 07/02/17 13:10 Sodium 122 mmol/L (137-145) L 07/05/17 17:02 Potassium 5.4 mmol/L (3.5-5.1) H 07/05/17 07:31 Chloride 93 mmol/L (98-107) L 07/05/17 07:31 Carbon Dioxide 22 mmol/L (22-30) 07/05/17 07:31 Anion Gap 12 mmol/L 07/05/17 07:31 BUN 60 mg/dL (9-20) H 07/05/17 07:31 Creatinine 1.80 mg/dL (0.66-1.25) H 07/05/17 07:31 Est GFR (CKD-EPI)AfAm 46 (>60 ml/min/1.73 sqM) 07/05/17 07:31 Est GFR (CKD-EPI)NonAf 40 (>60 ml/min/1.73 sqM) 07/05/17 07:31 Glucose 164 mg/dL (74-99) H 07/05/17 07:31 POC Glucose (mg/dL) 128 mg/dL (75-99) H 07/03/17 02:36 POC Glu Live Study Manager ID LeMere, Maddison 07/03/17 02:36 Osmolality 272 mosm/kg (280-301) L 07/02/17 06:57 Uric Acid 7.6 mg/dL (3.5-8.5) 07/04/17 08:11 Calcium 9.0 mg/dL (8.4-10.2) 07/05/17 07:31 Phosphorus 4.0 mg/dL (2.5-4.5) 07/05/17 07:31 Magnesium 3.1 mg/dL (1.6-2.3) H 07/05/17 07:31 Total Bilirubin 19.1 mg/dL (0.2-1.3) H* 07/05/17 07:31 AST 126 U/L (17-59) H 07/05/17 07:31 ALT 141 U/L (21-72) H 07/05/17 07:31 Alkaline Phosphatase 612 U/L (38-126) H 07/05/17 07:31 Total Protein 5.7 g/dL (6.3-8.2) L 07/05/17 07:31 Albumin 2.9 g/dL (3.5-5.0) L 07/05/17 07:31 Urine Color Dark Yellow 07/03/17 05:50 Urine Appearance Clear (Clear) 07/03/17 05:50 Urine pH 5.5 (5.0-8.0) 07/03/17 05:50 Ur Specific [place] 1.010 (1.001-1.035) 07/03/17 05:50 Urine Protein Negative (Negative) 07/03/17 05:50 Urine Glucose (UA) Negative (Negative) 07/03/17 05:50 Urine Ketones Negative (Negative) 07/03/17 05:50 Urine Blood Negative (Negative) 07/03/17 05:50 Urine Nitrite Negative (Negative) 07/03/17 05:50 Urine Bilirubin 2+ (Negative) H 07/03/17 05:50 Urine Urobilinogen 4.0 mg/dL (<2.0) 07/03/17 05:50 Ur Leukocyte Esterase Negative (Negative) 07/03/17 05:50 Urine Osmolality 347 mosm/kg (50-1400) 07/02/17 16:30 Ur Random Sodium <5 mmol/L (30-90) L 07/02/17 16:30 Assessment and Plan (1) Pancreatic cancer metastasized to liver Current Visit: Yes Status: Acute Priority: High Code(s): C25.9 - MALIGNANT NEOPLASM OF PANCREAS, UNSPECIFIED; C78.7 - SECONDARY MALIG NEOPLASM OF LIVER AND INTRAHEPATIC BILE DUCT SNOMED Code(s): 618813181 (2) Malignant ascites Current Visit: Yes Status: Acute Priority: High Code(s): R18.0 - MALIGNANT ASCITES SNOMED Code(s): 132969739 (3) Jaundice, hepatocellular Current Visit: Yes Status: Acute Code(s): K76.89 - OTHER SPECIFIED DISEASES OF LIVER SNOMED Code(s): 58623409 (4) Leukocytosis Narrative/Plan: 61-year-old male 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 Workup has occurred as per the circumstances above has been find evidence of pancreatic cancer with hepatic metastasis as well as malignant ascites. He is being followed by oncology and overall plans are in progress. The patient was admitted for treatment of his altered mental status thought to be due to the significant hyponatremia that is slowly responding from treatment from nephrology which is included hypertonic saline, fluid restriction and Tolvatan. The patient does have a significant leukocytosis it is been somewhat persistent. This is a reactive component to his significant hepatic metastasis. The patient does not appear to have underlying sepsis at this point in time. The ascitic fluid has been sent for culture and has been negative in the past. It with the patient being more comfortable now than he was several days ago strongly points away from any type of peritonitis. As of the patient's prognosis is extremely poor and there is notation that they will be talking about hospice in the morning. 07/05/2017 patient remains somewhat comfortable with utilization of narcotic. the patient's is presentand voices confusion about the overall plan. She however is able to state that the patient has pancreatic cancer, with metastasis to his liver and malignant ascites. She also is aware that no treatment is available at this time. Review of the oncology notes reveals discussion of hospice that the patients does not recall in the midst of the significant change. At this time does not appear to have reactive leukocytosis appears to be specifically related to the hepatic metastasis. Current Visit: Yes Status: Acute Code(s): D72.829 - ELEVATED WHITE BLOOD CELL COUNT, UNSPECIFIED SNOMED Code(s): 686745913 (5) Thrombocytopenia Current Visit: Yes Status: Acute Code(s): D69.6 - THROMBOCYTOPENIA, UNSPECIFIED SNOMED Code(s): 249303617
[2017-07-06] MEDS: MORPHINE SULFATE 4 MG/ML SYRINGE IVP PRN ×5 (00:25→20:31)
[2017-07-06 08:11] LABS: Basophils % (A) 0 %; Eosinophils # (A) 0.2 k/uL (0-0.7); Eosinophils % (A) 1 %; HGB 18.3 gm/dL (13.0-17.5); Lymphocytes # (A) 1.1 k/uL (1.0-4.8); Lymphocytes % (A) 5 %; MCH 28.5 pg (25.0-35.0); MCHC 31.2 g/dL (31.0-37.0); MCV 91.4 fL (80.0-100.0); Monocytes # (A) 1.5 k/uL (0-1.0); Monocytes % (A) 6 %; Neutrophils # (A) 20.3 k/uL (1.3-7.7); Neutrophils % (A) 87 %; Platelet Count 117 k/uL (150-450); RBC 6.42 m/uL (4.30-5.90); RDW 15.7 % (11.5-15.5); WBC 23.3 k/uL (3.8-10.6)
[2017-07-06] MEDS: NICOTINE 21MG/24HR PATCH TRANSDERM SCH (08:18)
[2017-07-06] MEDS: SODIUM CHLORIDE TAB 1 GM TAB PO SCH ×3 (08:18→20:32)
[2017-07-06] MEDS: SODIUM BICARBONATE TAB 650 MG TAB PO SCH ×3 (08:18→20:32)
[2017-07-06 08:25] LABS: Albumin 2.8 g/dL (3.5-5.0); Magnesium 3.2 mg/dL (1.6-2.3); Total Protein 5.7 g/dL (6.3-8.2)
[2017-07-06 08:39] LABS: Potassium 6.2 mmol/L (3.5-5.1); Total Bilirubin 19.9 mg/dL (0.2-1.3)
[2017-07-06 08:53] LABS: HCT 58.7 % (39.0-53.0)
[2017-07-06] MEDS ORDERED: SODIUM POLYSTYRENE SULFONATE 15 GM/60 ML BOTTLE PO STA (09:26)
[2017-07-06 09:56] LABS: Poikilocytosis (M) Present; Target Cells Present
[2017-07-06] MEDS ORDERED: INSULIN REGULAR 100 UNIT/ML VIAL IV ONE (10:25)
[2017-07-06] MEDS ORDERED: DEXTROSE 50%-WATER 50 ML SYRINGE IVP STA (10:25)
[2017-07-06] MEDS ORDERED: FUROSEMIDE 10 MG/ML 10 ML VIAL IV STA (10:28)
[2017-07-06] MEDS ORDERED: TOLVAPTAN 30 MG TABLET PO ONE (10:30)
--- NOTE | 2017-07-06 10:50 | P.PN ---
Subjective Progress Note Date: 07/06/17 Principal diagnosis: Metastatic pancreatic/biliary adenocarcinoma and hyponatremia This is a 61-year-old white male recently diagnosed as having metastatic adenocarcinoma, possibly pancreatic/biliary in origin. His initial presentation was on 06/13/2017, patient presented with abdominal pain mostly in the left upper quadrant. Patient was noted to have ascites. And multiple low- density liver masses consistent with metastatic disease. There was also a 5 cm mass at the tail of the pancreas. Paracentesis was done, 7.7 L were removed, and the ascites fluid came back positive for adenocarcinoma. Liver biopsy was done, and it was also positive for adenocarcinoma, likely pancreato-biliary in origin. Patient has been gradually deteriorating and going downhill for the last a few weeks. Has been complaining of severe abdominal pain, generalized weakness, fatigue, decreased appetite, and inability to eat. He was seen by the oncologist the day of admission, and he was basically admitted because of pain management, significantly low sodium, and for paracentesis since his ascites was getting worse. Patient was transferred to the ICU yesterday for infusion of 3% saline which was recommended by nephrology on the case. He is presently on 3% saline, and his sodium is today 120, sodium had been fluctuating between 117 and 120. His hyponatremia was felt to be related to intravascular depletion, and third spacing of fluids. I saw the patient in the ICU today, he is not the greatest historian, he seems to be generally weak, and he is presently on 3% saline. Denies any cough no wheezing no shortness of breath no chest pain. He is mostly complaining of profound weakness, fatigue, and intermittent episodes of abdominal pains. A shunt was noted to have leukocytosis with WBC count of 21.0, sodium is 120 potassium is 5.9. BUN is 65 creatinine 1.80 liver enzymes were noted to be elevated with a total bilirubin of 17.5. Transaminases were also noted to be elevated, and alkaline phosphatase of 558. Reevaluated today on 07/04/2017, patient remains in the ICU. Serum sodium is up to 127, patient did receive 3% saline, and he did receive tolvaptan. Patient is in no form of respiratory distress, he is hemodynamically stable, and I went ahead and recommended that to transfer the patient back to oncology. Liver enzymes were noted, total bilirubin is a 19. And alkaline phosphatase is 590. BUN is 56 creatinine 1.40. On 07/05/2017 patient seen in follow-up. Resting in bed, laying flat in bed, denies any worsening dyspnea, he has large amount of abdominal ascites, and generalized swelling diffuse bruising, in addition to generalized jaundice. Currently on room air, and pulse ox is 95%, his hemodynamically stable, lung sounds are diminished, no rhonchi or wheezes noted on today's exam, patient is afebrile. Denies any fever or chills. Patient states he is awaiting the arrival of his to discuss hospice care. Today's labs were noted, patient' s serum sodium is 125, his renal profile is worsening. Prognosis is quite poor , and comfort care discussion is appropriate at this time. On 07/06/2017 patient seen again in follow-up on oncology floor. He is laying in bed, lethargic, but easily arousable to verbal stimuli. Denies any acute distress, is evidence of generalized swelling, and generalized mottling, particularly to bilateral lower extremities, jaundice. Abdomen is urgent distended. Patient is on room air, pulse ox of 95%, he is afebrile, as are diminished to auscultation. Today's lab work shows WBC is slightly more increased up to 23.3, hemoglobin 6.42, platelet count was 117, sodium is 124, potassium 6.2, BUN is 71, and creatinine is 1.71. Patient and his are meeting with oncology today, overall prognosis is very poor, patient is having ongoing abdominal pain, he is receiving narcotics for pain relief. Dr. Bishop spoke to the patient about his current condition and poor prognosis, in view of patient's terminal illness, significant discomfort, patient was recommended to proceed with comfort care only at this time. Objective - Vital Signs Vital signs: Vital Signs Temp 97.4 F L 07/06/17 05:58 Pulse 83 07/06/17 05:58 Resp 18 07/06/17 05:58 BP 104/58 07/06/17 05:58 Pulse Ox 95 07/06/17 05:58 Intake & Output 07/05/17 07/06/17 07/06/17 18:59 06:59 18:59 Intake Total 907 Output Total 500 0 Balance 407 0 Weight 109 kg Intake: Oral 907 Output: Urine 500 Stool 0 0 Other: Voiding Method Urinal Urinal Urinal # Voids 1 1 - Exam Physical Exam: Revealed a 61-year-old white male, awake, in no form of respiratory distress. Patient was noted to be jaundice, with diffuse ecchymosis , generalized anasarca in addition to large abdominal ascites. Diffuse mottling was noted worse on bilateral lower extremities up Head: Atraumatic, normocephalic. HEENT:[Neck is supple.] [No neck masses.] [No thyromegaly.] [No JVD.] Chest: [Clear throughout, no crackles, no rhonchi, no wheezes.] Cardiac Exam: [Normal S1 and S2, no S3 gallop, no murmur.] Abdomen: [Soft, slightly tender on deep palpation, positive ascites, no rebound , no guarding. Positive bowel sounds. Extremities: [No clubbing, 1+ bipedal edema, no cyanosis.] Neurological Exam: Alert, oriented 3, no gross focal neurologic deficit. Lymphatics: No lymphadenopathy. Psychiatric: Normal mood affect and mental status examination. - Labs CBC & Chem 7: 07/06/17 07:40 07/06/17 07:40 Labs: Abnormal Lab Results - Last 24 Hours (Table) 07/05/17 07/06/17 07/06/17 Range/Units 17:02 00:18 07:40 WBC 23.3 H (3.8-10.6) k/uL RBC 6.42 H (4.30-5.90) m/uL Hgb 18.3 H (13.0-17.5) gm/dL Hct 58.7 H (39.0-53.0) % RDW 15.7 H (11.5-15.5) % Plt Count 117 L (150-450) k/uL Neutrophils # 20.3 H (1.3-7.7) k/uL Monocytes # 1.5 H (0-1.0) k/uL Sodium 122 L 122 L (137-145) mmol/L Potassium (3.5-5.1) mmol/L Chloride (98-107) mmol/L Carbon Dioxide (22-30) mmol/L BUN (9-20) mg/dL Creatinine (0.66-1.25) mg/dL Glucose (74-99) mg/dL Magnesium (1.6-2.3) mg/dL Total Bilirubin (0.2-1.3) mg/dL AST (17-59) U/L ALT (21-72) U/L Alkaline Phosphatase (38-126) U/L Total Protein (6.3-8.2) g/dL Albumin (3.5-5.0) g/dL 07/06/17 Range/Units 07:40 WBC (3.8-10.6) k/uL RBC (4.30-5.90) m/uL Hgb (13.0-17.5) gm/dL Hct (39.0-53.0) % RDW (11.5-15.5) % Plt Count (150-450) k/uL Neutrophils # (1.3-7.7) k/uL Monocytes # (0-1.0) k/uL Sodium 124 L (137-145) mmol/L Potassium 6.2 H* (3.5-5.1) mmol/L Chloride 93 L (98-107) mmol/L Carbon Dioxide 20 L (22-30) mmol/L BUN 71 H (9-20) mg/dL Creatinine 1.71 H (0.66-1.25) mg/dL Glucose 138 H (74-99) mg/dL Magnesium 3.2 H (1.6-2.3) mg/dL Total Bilirubin 19.9 H* (0.2-1.3) mg/dL AST 164 H (17-59) U/L ALT 155 H (21-72) U/L Alkaline Phosphatase 748 H (38-126) U/L Total Protein 5.7 L (6.3-8.2) g/dL Albumin 2.8 L (3.5-5.0) g/dL Assessment and Plan Assessment: Assessment: 1 acute hyponatremia, most likely secondary to hepatic failure, ascites, with excessive water retention and worsening hyponatremia. portal hypertension, and renin angiotensin aldosterone, and antidiuretic hormone activation. Water retention, and thereby hyponatremia. In this setting, treatment of hyponatremia is a challenge, and it will likely include fluid restriction, loop diuretics may be of no value, selective vasopressin receptor antagonist/vaptans would be of more value in this setting. Patient's serum sodium is 124, potassium is 6.2, patient has significant electrolyte abnormalities, nephrology is following. 2 metastatic pancreatic/biliary adenocarcinoma 3 ascites secondary to adenocarcinoma, metastatic to liver., And decompensated liver disease. Patient is status post paracentesis 2. 4 acute hyperkalemia secondary to renal disease. Possibly acute kidney injury or prerenal azotemia. Patient is definitely high risk for developing hepatorenal syndrome. 5 history of tobacco dependence syndrome, patient is presently on nicotine patch. Recommendation: Patient and his are expected to meet with medical oncology today at 1:30, to discuss patient's prognosis, which is quite poor at this time, patient has static pancreatic/biliary adenocarcinoma. We have discussed his condition with him, and in view of his terminal illness, and significant discomfort recommended to proceed with comfort care at this time. We will follow the patient on as-needed basis. Thank you for this consultation I performed a history & physical examination of the patient and discussed their management with my nurse practitioner, Rajni Holley. I reviewed the nurse practitioner's note and agree with the documented findings and plan of care. Lung sounds are positive diminished lung sounds. The findings and the impression was discussed with the patient. I attest to the documentation by the nurse practitioner. Time with Patient: Less than 30
--- NOTE | 2017-07-06 11:05 | P.PN ---
Subjective Patient is seen in follow-up for hyponatremia and acute kidney injury. Sodium level is 124. Creatinine is a little improved at 1.71 today. Patient's currently resting in bed. Potassium level is up to 6.2. Vital signs are stable. General: The patient appeared well nourished and normally developed. HEENT: Head exam is unremarkable. Neck is without jugular venous distension. LUNGS: Lungs are clear to auscultation and percussion. Breath sounds decreased. HEART: Rate and Rhythm are regular. First and second heart sounds normal. No murmurs, rubs or gallops. ABDOMEN: Bowel sounds present. Distention noted. EXTREMITITES: No clubbing, cyanosis, or edema. Objective - Vital Signs Vital signs: Vital Signs Temp 97.4 F L 07/06/17 05:58 Pulse 83 07/06/17 05:58 Resp 18 07/06/17 05:58 BP 104/58 07/06/17 05:58 Pulse Ox 95 07/06/17 05:58 Intake & Output 07/05/17 07/06/17 07/06/17 18:59 06:59 18:59 Intake Total 907 Output Total 500 0 Balance 407 0 Weight 109 kg Intake: Oral 907 Output: Urine 500 Stool 0 0 Other: Voiding Method Urinal Urinal Urinal # Voids 1 1 - Labs CBC & Chem 7: 07/06/17 07:40 07/06/17 07:40 Labs: Abnormal Lab Results - Last 24 Hours (Table) 07/05/17 07/06/17 07/06/17 Range/Units 17:02 00:18 07:40 WBC 23.3 H (3.8-10.6) k/uL RBC 6.42 H (4.30-5.90) m/uL Hgb 18.3 H (13.0-17.5) gm/dL Hct 58.7 H (39.0-53.0) % RDW 15.7 H (11.5-15.5) % Plt Count 117 L (150-450) k/uL Neutrophils # 20.3 H (1.3-7.7) k/uL Monocytes # 1.5 H (0-1.0) k/uL Sodium 122 L 122 L (137-145) mmol/L Potassium (3.5-5.1) mmol/L Chloride (98-107) mmol/L Carbon Dioxide (22-30) mmol/L BUN (9-20) mg/dL Creatinine (0.66-1.25) mg/dL Glucose (74-99) mg/dL Magnesium (1.6-2.3) mg/dL Total Bilirubin (0.2-1.3) mg/dL AST (17-59) U/L ALT (21-72) U/L Alkaline Phosphatase (38-126) U/L Total Protein (6.3-8.2) g/dL Albumin (3.5-5.0) g/dL 07/06/17 Range/Units 07:40 WBC (3.8-10.6) k/uL RBC (4.30-5.90) m/uL Hgb (13.0-17.5) gm/dL Hct (39.0-53.0) % RDW (11.5-15.5) % Plt Count (150-450) k/uL Neutrophils # (1.3-7.7) k/uL Monocytes # (0-1.0) k/uL Sodium 124 L (137-145) mmol/L Potassium 6.2 H* (3.5-5.1) mmol/L Chloride 93 L (98-107) mmol/L Carbon Dioxide 20 L (22-30) mmol/L BUN 71 H (9-20) mg/dL Creatinine 1.71 H (0.66-1.25) mg/dL Glucose 138 H (74-99) mg/dL Magnesium 3.2 H (1.6-2.3) mg/dL Total Bilirubin 19.9 H* (0.2-1.3) mg/dL AST 164 H (17-59) U/L ALT 155 H (21-72) U/L Alkaline Phosphatase 748 H (38-126) U/L Total Protein 5.7 L (6.3-8.2) g/dL Albumin 2.8 L (3.5-5.0) g/dL Assessment and Plan Plan: Assessment: 1. Hypervolemic hyponatremia secondary to ascites from liver metastasis. 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 Sodium level dropped with IV hydration. Status post 3% and tolvaptan. Sodium level 124 today. 2. Nonoliguric acute kidney injury secondary to ATN secondary to hepatorenal syndrome. No evidence of hydronephrosis noted on renal ultrasound. Elevated bilirubin can also cause ATN/pigment nephropathy. 3. Hyperkalemia secondary to acute kidney injury. 4. Metastatic carcinoma of pancreaticobiliary origin. Liver metastasis noted. 5. Ascites secondary to liver metastasis. Status post paracentesis on July 02 with 5.2 L drained. Plan: Maintain 1.5 L fluid restriction. Continue salt tabs 1 g 3 times daily. Samsca 30 mg now. Lasix 60 mg IV once now. 10 units of IV insulin with an amp of D50 now. Repeat sodium and potassium level at 5 PM today. Discussed case with oncology. Overall prognosis poor.
--- NOTE | 2017-07-06 14:47 | P.PN ---
Subjective Progress Note Date: 07/06/17 61 yr old male patient of Dr. Young with past medical history of obesity, CVA, shingles, tobacco abuse, recently diagnosed metastatic disease with unknown primary with multiple liver mass and pancreatic mass at the pancreatic tail who underwent liver biopsy on 06/29. Patient was recently admitted on 06/18 for abdominal distention and weakness. He underwent CT abdomen previously on 06/13 which suggested large ascites, hyperdense lesion on the liver measuring 4 cm without bile duct dilation consistent with metastatic disease there was a 5 cm mass in the tail of the pancreas suspicious for cancer. Patient underwent 3 paracentesis so far, 9.2 L removed during the first paracentesis is an 7 L removed during the second and the last one was on with 8.3 L removed which was after 4 dyas from the second one. Cytology positive for adenocarcinoma in the fluid. Increased CEA 19.9 with normal CEA. During the last admission patient was noted to have a sodium of 122, elevated liver enzymes with bilirubin as high as 13.6 with increase in transaminase. Urine osmolarity at that time was 367, urine sodium was 15. Patient received 1 dose of Samsca. He was discharged on 06/30 as patient had a appointment with Dr. Vasquez and is currently He does complain of abdominal distention and lower extremity edema. He denies any nausea, vomiting. It is lactulose for regular bowel movements. INR today was 2. Liver biopsy was canceled. Vitamin K 5 mg given. Repeat INR tomorrow for possible liver biopsy. Patient comes in today been intractable nausea, associated with progressive abdominal pain and increased drowsiness. Vitals are stable with a blood pressure 127/74, respiratory rate 20, pulse rate 85 with labs suggestive of WBC 20.5 that continues to progress, increased hemoglobin 18.6, sodium 120 which dropped to 119 on administration of IV fluid which were stopped. Increase potassium to 5.2, chloride 87, creatinine 1.75, bilirubin 18, the increased AST to 200, ALT 194, alkaline phosphatase 854. Patient received 60 mg IV of Lasix. 07/05: Patient developed worsening Ascites might be going for Paracentesis, his hyponatremia slightly but better but not subtle is still seen nephrology regular basis with his severe comorbidity currently. Still apparently talk with oncology and family about hospice and comfort care. 07/06: Lab work continues to worsen with a white count of 23 and platelet count 117, sodium remains low at 124 potassium 6.2. One dose of Kayexalate has been ordered. Total bilirubin is now up to 19.9 and liver function tests continue to worsen. BUN [address] Diallo has continued him on 1.5 L fluid restriction, salt tablets, Samsca and 1 dose of IV Lasix with insulin and D 50. Oncology is following on an as-needed basis. Patient is followed by Dr. Melendez for persistent leukocytosis most likely due to reaction for significant hepatic metastasis. Oncology to have family meeting this afternoon. Discussed with patient prognosis. Jaundice appears to be worsening. Objective - Vital Signs Vital signs: Vital Signs Temp 97.4 F L 07/06/17 05:58 Pulse 83 07/06/17 05:58 Resp 18 07/06/17 05:58 BP 104/58 07/06/17 05:58 Pulse Ox 95 07/06/17 05:58 Intake & Output 07/05/17 07/06/17 07/06/17 18:59 06:59 18:59 Intake Total 907 Output Total 500 0 Balance 407 0 Weight 109 kg Intake: Oral 907 Output: Urine 500 Stool 0 0 Other: Voiding Method Urinal Urinal Urinal # Voids 1 1 - Exam General appearance: Present: cooperative, disheveled, mild distress, obese. Absent: average body habitus, morbidly obese, no acute distress, severe distress , thin - EENT Eyes: Present: abnormal pupil, scleral icterus, normal appearance. Absent: anicteric sclerae, disc margins sharp, edentulous, EOMI, PERRLA, fundus normal, photophobia, dentition normal, poor dentition, ptosis ENT: Present: normal oropharynx, pharyngeal erythema. Absent: hard of hearing, hearing grossly normal, NA/AT, other, thrush, tonsillar exudates, tonsillar swelling Ears: bilateral: normal - Neck Neck: Present: normal ROM. Absent: lymphadenopathy, other, rigidity, stridor, thyromegaly Carotids: bilateral: upstroke normal Thyroid: bilateral: normal size - Respiratory Respiratory: bilateral: diminished, dullness - Cardiovascular Rhythm: regular Heart sounds: normal: S1, S2 Abnormal Heart Sounds: Present: systolic murmur - Gastrointestinal General gastrointestinal: Present: distended, hepatomegaly, scaphoid, splenomegaly. Absent: absent bowel sounds, decreased bowel sounds, hyperactive bowel sounds, normal bowel sounds, organomegaly, rigid, soft, tenderness, umbilical hernia, ventral hernia - Integumentary Integumentary: Present: normal, pale. Absent: calor, cellulitis, cyanotic, decreased turgor, flushed, jaundiced, normal turgor, rash, ulcer - Neurologic Neurologic: Present: CNII-XII intact - Musculoskeletal Musculoskeletal: Present: generalized weakness. Absent: gait normal, strength equal bilaterally, right sided weakness, left sided weakness - Psychiatric Psychiatric: Present: A&O x's 3, appropriate affect. Absent: intact judgment & insight - Labs CBC & Chem 7: 07/06/17 07:40 07/06/17 07:40 Labs: Abnormal Lab Results - Last 24 Hours (Table) 07/05/17 07/06/17 07/06/17 Range/Units 17:02 00:18 07:40 WBC 23.3 H (3.8-10.6) k/uL RBC 6.42 H (4.30-5.90) m/uL Hgb 18.3 H (13.0-17.5) gm/dL Hct 58.7 H (39.0-53.0) % RDW 15.7 H (11.5-15.5) % Plt Count 117 L (150-450) k/uL Neutrophils # 20.3 H (1.3-7.7) k/uL Monocytes # 1.5 H (0-1.0) k/uL Sodium 122 L 122 L (137-145) mmol/L Potassium (3.5-5.1) mmol/L Chloride (98-107) mmol/L Carbon Dioxide (22-30) mmol/L BUN (9-20) mg/dL Creatinine (0.66-1.25) mg/dL Glucose (74-99) mg/dL Magnesium (1.6-2.3) mg/dL Total Bilirubin (0.2-1.3) mg/dL AST (17-59) U/L ALT (21-72) U/L Alkaline Phosphatase (38-126) U/L Total Protein (6.3-8.2) g/dL Albumin (3.5-5.0) g/dL 07/06/17 Range/Units 07:40 WBC (3.8-10.6) k/uL RBC (4.30-5.90) m/uL Hgb (13.0-17.5) gm/dL Hct (39.0-53.0) % RDW (11.5-15.5) % Plt Count (150-450) k/uL Neutrophils # (1.3-7.7) k/uL Monocytes # (0-1.0) k/uL Sodium 124 L (137-145) mmol/L Potassium 6.2 H* (3.5-5.1) mmol/L Chloride 93 L (98-107) mmol/L Carbon Dioxide 20 L (22-30) mmol/L BUN 71 H (9-20) mg/dL Creatinine 1.71 H (0.66-1.25) mg/dL Glucose 138 H (74-99) mg/dL Magnesium 3.2 H (1.6-2.3) mg/dL Total Bilirubin 19.9 H* (0.2-1.3) mg/dL AST 164 H (17-59) U/L ALT 155 H (21-72) U/L Alkaline Phosphatase 748 H (38-126) U/L Total Protein 5.7 L (6.3-8.2) g/dL Albumin 2.8 L (3.5-5.0) g/dL Assessment and Plan Plan: 1 hyponatremia secondary to liver failure. Continue sodium tablets, 1500 fluid restriction 1 dose of IV Lasix. Nephrology consult appreciated. Samsca ordered. 2 pancreatic mass with metastatic disease to the liver with significant ascites. Last paracentesis on 06/29 Liver biopsy done on 06/29. Follows Dr. Vasquez fro possible treatment. Agents prognosis appeared to be very poor as ascites fluid is positive for adenocarcinoma. Elevated CA-19-9 9, CEA and normal alpha-fetoprotein suggesting metastatic disease to liver. 3 decompensated liver disease likely secondary to metastatic disease of the liver. patient has a meld score of 32 with 52% mortality in 3 months. Lactulose to prevent hepatic encephalopathy. Patient initiated on Lasix and Aldactone 4 ascites secondary to decompensated liver disease. Mild abdominal distention. We'll hold for ultrasound abdomen for now. Last paracentesis 3 days ago. Paracentesis today with interventional radiology. 5 tobacco use and dependence nicotine patch daily 6 hyperkalemia status post one dose of kayexalate 7 history of CVA with no residual - stable. 8. Thrombocytopenia secondary to hepatic failure 9. Hyperkalemia status post Kayexalate. 10. Leukocytosis secondary to metastatic liver disease. Dr. Melendez consult appreciated. CODE STATUS: DO NOT RESUSCITATE possible talk about hospice care. Discharge plan: To be determined Impression and plan of care have been directed as dictated by the signing physician. Dagmar Thrasher nurse practitioner acting as scribe for signing physician.
--- NOTE | 2017-07-06 15:59 | P.PN ---
Subjective Progress Note Date: 07/06/17 Principal diagnosis: metastatic pancreatic adenocarcinoma patient seen today in follow-up. He denies pain, nausea or need to go to the bathroom. He is oriented to self, place, time and situation, his is at the bedside Objective - Vital Signs Vital signs: Vital Signs Temp 97.4 F L 07/06/17 05:58 Pulse 83 07/06/17 05:58 Resp 18 07/06/17 05:58 BP 104/58 07/06/17 05:58 Pulse Ox 95 07/06/17 05:58 Intake & Output 07/05/17 07/06/17 07/06/17 18:59 06:59 18:59 Intake Total 907 750 Output Total 500 0 900 Balance 407 0 -150 Weight 109 kg Intake: Oral 907 750 Output: Urine 500 900 Stool 0 0 Other: Voiding Method Urinal Urinal Urinal # Voids 1 1 - Exam Patient is laying flat in bed, severe jaundice, abdomen distended, patient's eyes are closed but, he engages in conversation appropriately, oriented to self , place, time and situation. - Labs CBC & Chem 7: 07/06/17 07:40 07/06/17 07:40 Labs: Abnormal Lab Results - Last 24 Hours (Table) 07/05/17 07/06/17 07/06/17 Range/Units 17:02 00:18 07:40 WBC 23.3 H (3.8-10.6) k/uL RBC 6.42 H (4.30-5.90) m/uL Hgb 18.3 H (13.0-17.5) gm/dL Hct 58.7 H (39.0-53.0) % RDW 15.7 H (11.5-15.5) % Plt Count 117 L (150-450) k/uL Neutrophils # 20.3 H (1.3-7.7) k/uL Monocytes # 1.5 H (0-1.0) k/uL Sodium 122 L 122 L (137-145) mmol/L Potassium (3.5-5.1) mmol/L Chloride (98-107) mmol/L Carbon Dioxide (22-30) mmol/L BUN (9-20) mg/dL Creatinine (0.66-1.25) mg/dL Glucose (74-99) mg/dL Magnesium (1.6-2.3) mg/dL Total Bilirubin (0.2-1.3) mg/dL AST (17-59) U/L ALT (21-72) U/L Alkaline Phosphatase (38-126) U/L Total Protein (6.3-8.2) g/dL Albumin (3.5-5.0) g/dL 07/06/17 Range/Units 07:40 WBC (3.8-10.6) k/uL RBC (4.30-5.90) m/uL Hgb (13.0-17.5) gm/dL Hct (39.0-53.0) % RDW (11.5-15.5) % Plt Count (150-450) k/uL Neutrophils # (1.3-7.7) k/uL Monocytes # (0-1.0) k/uL Sodium 124 L (137-145) mmol/L Potassium 6.2 H* (3.5-5.1) mmol/L Chloride 93 L (98-107) mmol/L Carbon Dioxide 20 L (22-30) mmol/L BUN 71 H (9-20) mg/dL Creatinine 1.71 H (0.66-1.25) mg/dL Glucose 138 H (74-99) mg/dL Magnesium 3.2 H (1.6-2.3) mg/dL Total Bilirubin 19.9 H* (0.2-1.3) mg/dL AST 164 H (17-59) U/L ALT 155 H (21-72) U/L Alkaline Phosphatase 748 H (38-126) U/L Total Protein 5.7 L (6.3-8.2) g/dL Albumin 2.8 L (3.5-5.0) g/dL Assessment and Plan (1) Pancreatic cancer metastasized to liver Current Visit: Yes Status: Acute Priority: High Code(s): C25.9 - MALIGNANT NEOPLASM OF PANCREAS, UNSPECIFIED; C78.7 - SECONDARY MALIG NEOPLASM OF LIVER AND INTRAHEPATIC BILE DUCT SNOMED Code(s): 855195377 (2) Neoplasm related pain Current Visit: Yes Status: Acute Priority: High Code(s): G89.3 - NEOPLASM RELATED PAIN (ACUTE) (CHRONIC) SNOMED Code(s): 071667256 (3) Malignant ascites Current Visit: Yes Status: Acute Priority: High Code(s): R18.0 - MALIGNANT ASCITES SNOMED Code(s): 243961257 (4) Hyperbilirubinemia Current Visit: Yes Status: Acute Priority: High Code(s): E80.6 - OTHER DISORDERS OF BILIRUBIN METABOLISM SNOMED Code(s): 50775009 Plan: Had a long discussion with patient and about diagnosis of incurable, metastatic pancreatic adenocarcinoma. We discussed that palliative chemotherapy is not an option due to multiple organ system dysfunction and despite medicine best efforts patient condition is not improving. We discussed prognosis, which is terminal. We discussed hospice, purpose being quality of life, the focus is on comfort and dignity. All questions answered to the best of my ability. Patient and are agreeable to hospice house. Discussed the case with social work and the director of the hospice house, did assure patient and that if he required paracentesis for palliation of symptoms that that would be arranged. Have requested ultrasound and Interventional Radiology to evaluate for a possible palliative paracentesis prior to discharge. Patient will be discharged to care of hospice as soon as patient is able to be received. All questions answered. Case reviewed with Attending SEARCH ENGINE MARKETING MANAGER. Greater than 30 minutes spent counseling and coordinating care. Time with Patient: Greater than 30
--- NOTE | 2017-07-06 16:52 | US ---
EXAMINATION TYPE: US abdomen limited DATE OF EXAM: 07/06/2017 COMPARISON: NONE CLINICAL HISTORY: eval for ascites, possible palliative paracentesis. Patient in a lot of pain, couldn't shift midline, laying more LLD. Moderate ascites on left. IMPRESSION: The exam demonstrates abdominal ascites and fluid in the left lower quadrant measures 6 cm in depth.
[2017-07-06 17:39] LABS: Potassium 5.9 mmol/L (3.5-5.1)
[2017-07-06] MEDS: traZODone HCL 50 MG TAB PO SCH (20:32)
[2017-07-06] MEDS: SENNOSIDES 8.6 MG TAB PO SCH (20:32)
[2017-07-07] MEDS: MORPHINE SULFATE 4 MG/ML SYRINGE IVP PRN ×3 (06:15→17:42)
[2017-07-07 08:05] LABS: Calcium 8.6 mg/dL (8.4-10.2); Magnesium 3.1 mg/dL (1.6-2.3); Phosphorus 6.3 mg/dL (2.5-4.5)
[2017-07-07 08:24] LABS: Anisocytosis Slight; Basophils # (A) 0.1 k/uL (0-0.2); Basophils % (A) 0 %; Eosinophils # (A) 0.1 k/uL (0-0.7); Eosinophils % (A) 1 %; HGB 18.6 gm/dL (13.0-17.5); Lymphocytes # (A) 2.3 k/uL (1.0-4.8); Lymphocytes % (A) 10 %; MCH 29.1 pg (25.0-35.0); MCHC 32.1 g/dL (31.0-37.0); MCV 90.6 fL (80.0-100.0); Mean Platelet Volume 8.5; Monocytes # (A) 1.3 k/uL (0-1.0); Monocytes % (A) 6 %; Neutrophils # (A) 18.4 k/uL (1.3-7.7); Neutrophils % (A) 81 %; Platelet Count 119 k/uL (150-450); RBC 6.37 m/uL (4.30-5.90); RDW 16.1 % (11.5-15.5); WBC 22.5 k/uL (3.8-10.6)
[2017-07-07 08:25] LABS: HCT 57.8 % (39.0-53.0)
[2017-07-07 09:23] LABS: Poikilocytosis (M) Present; Target Cells Present
[2017-07-07] MEDS: NICOTINE 21MG/24HR PATCH TRANSDERM SCH (09:35)
[2017-07-07] MEDS: SODIUM BICARBONATE TAB 650 MG TAB PO SCH ×3 (09:35→22:05)
[2017-07-07] MEDS: SODIUM CHLORIDE TAB 1 GM TAB PO SCH ×3 (09:35→22:05)
[2017-07-07 10:26] LABS: Prothrombin Time 27.3 sec (9.0-12.0)
[2017-07-07] MEDS ORDERED: FUROSEMIDE 10 MG/ML 10 ML VIAL IV STA (11:47)
[2017-07-07] MEDS ORDERED: SODIUM BICARB 8.4% 50 ML SYR (1 MEQ/ML) IV STA (11:47)
[2017-07-07] MEDS ORDERED: DEXTROSE 50%-WATER 50 ML SYRINGE IVP STA (11:47)
[2017-07-07] MEDS ORDERED: TOLVAPTAN 30 MG TABLET PO ONE (11:47)
[2017-07-07] MEDS ORDERED: INSULIN REGULAR 100 UNIT/ML VIAL IV ONE (11:47)
--- NOTE | 2017-07-07 11:48 | P.PN ---
Subjective Patient is seen in follow-up for hyponatremia and acute kidney injury. Sodium level is 125. Creatinine is worse at 2.6 today. Patient's currently resting in bed. Potassium level is up to 6.3. Patient is quite lethargic. is present at bedside. Discussing with hospice. Vital signs are stable. General: The patient appeared well nourished and normally developed. HEENT: Head exam is unremarkable. Neck is without jugular venous distension. LUNGS: Lungs are clear to auscultation and percussion. Breath sounds decreased. HEART: Rate and Rhythm are regular. First and second heart sounds normal. No murmurs, rubs or gallops. ABDOMEN: Bowel sounds present. Distention noted. EXTREMITITES: No clubbing, cyanosis, or edema. Objective - Vital Signs Vital signs: Vital Signs Temp 98.1 F 07/07/17 06:30 Pulse 89 07/07/17 06:30 Resp 13 07/07/17 06:30 BP 104/56 07/07/17 07:22 Pulse Ox 93 L 07/07/17 06:30 Intake & Output 07/06/17 07/07/17 07/07/17 18:59 06:59 18:59 Intake Total 950 140 Output Total 1300 100 Balance -350 40 Intake: IV 40 0.9 NaCl- Flush 40 Oral 950 100 Output: Urine 1300 100 Stool 0 0 Other: Voiding Method Urinal Urinal Urinal # Voids 0 - Labs CBC & Chem 7: 07/07/17 07:30 07/07/17 07:30 Labs: Abnormal Lab Results - Last 24 Hours (Table) 07/06/17 07/07/17 07/07/17 Range/Units 17:11 07:30 07:30 WBC 22.5 H (3.8-10.6) k/uL RBC 6.37 H (4.30-5.90) m/uL Hgb 18.6 H (13.0-17.5) gm/dL Hct 57.8 H (39.0-53.0) % RDW 16.1 H (11.5-15.5) % Plt Count 119 L (150-450) k/uL Neutrophils # 18.4 H (1.3-7.7) k/uL Monocytes # 1.3 H (0-1.0) k/uL PT (9.0-12.0) sec INR (<1.2) Sodium 124 L 125 L (137-145) mmol/L Potassium 5.9 H 6.3 H* (3.5-5.1) mmol/L Chloride 95 L (98-107) mmol/L Carbon Dioxide 16 L (22-30) mmol/L BUN 86 H* (9-20) mg/dL Creatinine 2.60 H (0.66-1.25) mg/dL Glucose 102 H (74-99) mg/dL Phosphorus 6.3 H (2.5-4.5) mg/dL Magnesium 3.1 H (1.6-2.3) mg/dL 07/07/17 Range/Units 09:48 WBC (3.8-10.6) k/uL RBC (4.30-5.90) m/uL Hgb (13.0-17.5) gm/dL Hct (39.0-53.0) % RDW (11.5-15.5) % Plt Count (150-450) k/uL Neutrophils # (1.3-7.7) k/uL Monocytes # (0-1.0) k/uL PT 27.3 H (9.0-12.0) sec INR 3.0 H (<1.2) Sodium (137-145) mmol/L Potassium (3.5-5.1) mmol/L Chloride (98-107) mmol/L Carbon Dioxide (22-30) mmol/L BUN (9-20) mg/dL Creatinine (0.66-1.25) mg/dL Glucose (74-99) mg/dL Phosphorus (2.5-4.5) mg/dL Magnesium (1.6-2.3) mg/dL Assessment and Plan Plan: Assessment: 1. Hypervolemic hyponatremia secondary to ascites from liver metastasis. 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 Sodium level dropped with IV hydration. Status post 3% and tolvaptan. Sodium level 125 today. 2. Nonoliguric acute kidney injury secondary to ATN secondary to hepatorenal syndrome. No evidence of hydronephrosis noted on renal ultrasound. Elevated bilirubin can also cause ATN/pigment nephropathy. Creatinine up to 2.6 today. 3. Hyperkalemia secondary to acute kidney injury. And metabolic acidosis. 4. Metastatic carcinoma of pancreaticobiliary origin. Liver metastasis noted. 5. Ascites secondary to liver metastasis. Status post paracentesis on July 02 with 5.2 L drained. Plan: Maintain 1.5 L fluid restriction. Continue salt tabs 1 g 3 times daily. Samsca 30 mg now. Lasix 60 mg IV once now. 10 units of IV insulin with an amp of D50 now. Repeat sodium and potassium level at 5 PM today. Discussed case with oncology. Overall prognosis poor. Family working with hospice.
[2017-07-07] MEDS: SENNOSIDES 8.6 MG TAB PO SCH (22:05)
[2017-07-07] MEDS: traZODone HCL 50 MG TAB PO SCH (22:06)
[2017-07-08] MEDS: MORPHINE SULFATE 4 MG/ML SYRINGE IVP PRN ×7 (02:20→22:09)
[2017-07-08 06:26] VITALS: BP 93/63; PULSE 73; TEMP 97.4
[2017-07-08 07:43] LABS: Anisocytosis Slight; Calcium 8.7 mg/dL (8.4-10.2); HGB 18.6 gm/dL (13.0-17.5); MCH 29.7 pg (25.0-35.0); MCHC 32.5 g/dL (31.0-37.0); MCV 91.4 fL (80.0-100.0); Magnesium 3.4 mg/dL (1.6-2.3); Mean Platelet Volume 8.2; Phosphorus 7.7 mg/dL (2.5-4.5); Platelet Count 118 k/uL (150-450); Potassium 5.9 mmol/L (3.5-5.1); RBC 6.25 m/uL (4.30-5.90); RDW 16.7 % (11.5-15.5)
[2017-07-08 07:48] LABS: HCT 57.2 % (39.0-53.0)
[2017-07-08 08:14] LABS: INR 2.8 (<1.2); Prothrombin Time 24.7 sec (9.0-12.0)
[2017-07-08] MEDS ORDERED: ONDANSETRON 4 MG/2 ML VIAL IVP PRN (09:06)
[2017-07-08] MEDS ORDERED: ACETAMINOPHEN TAB 325 MG TAB PO PRN (09:06)
[2017-07-08] MEDS ORDERED: ATROPINE OPHTH SOLN 1% 5ML BTL SUBLINGUAL PRN (09:06)
[2017-07-08] MEDS ORDERED: ACETAMINOPHEN SUPPOSITORY 650 MG SUPP RECTAL PRN (09:06)
[2017-07-08 09:29] LABS: Band Neutrophils % 3 %; Eosinophils # (M) 0.21 k/uL (0-0.7); Lymphocytes # (M) 0.21 k/uL (1.0-4.8); Monocytes # (M) 0.42 k/uL (0-1.0); Neutrophils % (M) 94 %; Nucleated Red Blood Cells 0 /100 WBC (0-0); Poikilocytosis (M) Present; Polychromasia Present; Target Cells Present; Total Cells Counted 200
[2017-07-08] MEDS: NICOTINE 21MG/24HR PATCH TRANSDERM SCH (10:50)
[2017-07-08] MEDS: SODIUM CHLORIDE TAB 1 GM TAB PO SCH ×3 (10:51→19:40)
[2017-07-08] MEDS: SODIUM BICARBONATE TAB 650 MG TAB PO SCH ×3 (10:51→19:40)
--- NOTE | 2017-07-08 12:58 | P.PN ---
Subjective Progress Note Date: 07/07/17 61 yr old male patient of Dr. Young with past medical history of obesity, CVA, shingles, tobacco abuse, recently diagnosed metastatic disease with unknown primary with multiple liver mass and pancreatic mass at the pancreatic tail who underwent liver biopsy on 06/29. Patient was recently admitted on 06/18 for abdominal distention and weakness. He underwent CT abdomen previously on 06/13 which suggested large ascites, hyperdense lesion on the liver measuring 4 cm without bile duct dilation consistent with metastatic disease there was a 5 cm mass in the tail of the pancreas suspicious for cancer. Patient underwent 3 paracentesis so far, 9.2 L removed during the first paracentesis is an 7 L removed during the second and the last one was on with 8.3 L removed which was after 4 dyas from the second one. Cytology positive for adenocarcinoma in the fluid. Increased CEA 19.9 with normal CEA. During the last admission patient was noted to have a sodium of 122, elevated liver enzymes with bilirubin as high as 13.6 with increase in transaminase. Urine osmolarity at that time was 367, urine sodium was 15. Patient received 1 dose of Samsca. He was discharged on 06/30 as patient had a appointment with Dr. Vasquez and is currently He does complain of abdominal distention and lower extremity edema. He denies any nausea, vomiting. It is lactulose for regular bowel movements. INR today was 2. Liver biopsy was canceled. Vitamin K 5 mg given. Repeat INR tomorrow for possible liver biopsy. Patient comes in today been intractable nausea, associated with progressive abdominal pain and increased drowsiness. Vitals are stable with a blood pressure 127/74, respiratory rate 20, pulse rate 85 with labs suggestive of WBC 20.5 that continues to progress, increased hemoglobin 18.6, sodium 120 which dropped to 119 on administration of IV fluid which were stopped. Increase potassium to 5.2, chloride 87, creatinine 1.75, bilirubin 18, the increased AST to 200, ALT 194, alkaline phosphatase 854. Patient received 60 mg IV of Lasix. 07/05: Patient developed worsening Ascites might be going for Paracentesis, his hyponatremia slightly but better but not subtle is still seen nephrology regular basis with his severe comorbidity currently. Still apparently talk with oncology and family about hospice and comfort care. 07/06: Lab work continues to worsen with a white count of 23 and platelet count 117, sodium remains low at 124 potassium 6.2. One dose of Kayexalate has been ordered. Total bilirubin is now up to 19.9 and liver function tests continue to worsen. BUN [address] Diallo has continued him on 1.5 L fluid restriction, salt tablets, Samsca and 1 dose of IV Lasix with insulin and D 50. Oncology is following on an as-needed basis. Patient is followed by Dr. Melendez for persistent leukocytosis most likely due to reaction for significant hepatic metastasis. Oncology to have family meeting this afternoon. Discussed with patient prognosis. Jaundice appears to be worsening. 07/07: Abdominal ultrasound reveals ascites with fluid in LLQ 6 cm in depth. Plan for paracentesis tomorrow and transition to hospice initially as IP until bed is available at the [facility]. He continues to have electrolyte abnormalities addressed by Dr. Diallo. Hospice to meet with the patient's family regarding further plan and financial plan. Objective - Vital Signs Vital signs: Vital Signs Temp 97.7 F 07/07/17 14:25 Pulse 97 07/07/17 14:25 Resp 20 07/07/17 14:25 BP 91/52 07/07/17 14:25 Pulse Ox 94 L 07/07/17 14:25 Intake & Output 07/07/17 07/07/17 07/08/17 06:59 18:59 06:59 Intake Total 140 Output Total 100 Balance 40 Intake: IV 40 0.9 NaCl- Flush 40 Oral 100 Output: Urine 100 Stool 0 Other: Voiding Method Urinal Urinal # Voids 0 2 - Exam General appearance: Present: cooperative, disheveled, mild distress, obese. Absent: average body habitus, morbidly obese, no acute distress, severe distress , thin - EENT Eyes: Present: abnormal pupil, scleral icterus, normal appearance. Absent: anicteric sclerae, disc margins sharp, edentulous, EOMI, PERRLA, fundus normal, photophobia, dentition normal, poor dentition, ptosis ENT: Present: normal oropharynx, pharyngeal erythema. Absent: hard of hearing, hearing grossly normal, NA/AT, other, thrush, tonsillar exudates, tonsillar swelling Ears: bilateral: normal - Neck Neck: Present: normal ROM. Absent: lymphadenopathy, other, rigidity, stridor, thyromegaly Carotids: bilateral: upstroke normal Thyroid: bilateral: normal size - Respiratory Respiratory: bilateral: diminished, dullness - Cardiovascular Rhythm: regular Heart sounds: normal: S1, S2 Abnormal Heart Sounds: Present: systolic murmur - Gastrointestinal General gastrointestinal: Present: distended, hepatomegaly, scaphoid, splenomegaly. Absent: absent bowel sounds, decreased bowel sounds, hyperactive bowel sounds, normal bowel sounds, organomegaly, rigid, soft, tenderness, umbilical hernia, ventral hernia - Integumentary Integumentary: Present: normal, pale. Absent: calor, cellulitis, cyanotic, decreased turgor, flushed, jaundiced, normal turgor, rash, ulcer - Neurologic Neurologic: Present: CNII-XII intact - Musculoskeletal Musculoskeletal: Present: generalized weakness. Absent: gait normal, strength equal bilaterally, right sided weakness, left sided weakness - Psychiatric Psychiatric: Present: A&O x's 3, appropriate affect. Absent: intact judgment & insight - Labs CBC & Chem 7: 07/08/17 06:49 07/08/17 06:49 Labs: Abnormal Lab Results - Last 24 Hours (Table) 07/07/17 07/07/17 07/07/17 Range/Units 07:30 07:30 09:48 WBC 22.5 H (3.8-10.6) k/uL RBC 6.37 H (4.30-5.90) m/uL Hgb 18.6 H (13.0-17.5) gm/dL Hct 57.8 H (39.0-53.0) % RDW 16.1 H (11.5-15.5) % Plt Count 119 L (150-450) k/uL Neutrophils # 18.4 H (1.3-7.7) k/uL Monocytes # 1.3 H (0-1.0) k/uL PT 27.3 H (9.0-12.0) sec INR 3.0 H (<1.2) Sodium 125 L (137-145) mmol/L Potassium 6.3 H* (3.5-5.1) mmol/L Chloride 95 L (98-107) mmol/L Carbon Dioxide 16 L (22-30) mmol/L BUN 86 H* (9-20) mg/dL Creatinine 2.60 H (0.66-1.25) mg/dL Glucose 102 H (74-99) mg/dL Phosphorus 6.3 H (2.5-4.5) mg/dL Magnesium 3.1 H (1.6-2.3) mg/dL 07/07/17 Range/Units 19:05 WBC (3.8-10.6) k/uL RBC (4.30-5.90) m/uL Hgb (13.0-17.5) gm/dL Hct (39.0-53.0) % RDW (11.5-15.5) % Plt Count (150-450) k/uL Neutrophils # (1.3-7.7) k/uL Monocytes # (0-1.0) k/uL PT (9.0-12.0) sec INR (<1.2) Sodium (137-145) mmol/L Potassium 5.9 H (3.5-5.1) mmol/L Chloride (98-107) mmol/L Carbon Dioxide (22-30) mmol/L BUN (9-20) mg/dL Creatinine (0.66-1.25) mg/dL Glucose (74-99) mg/dL Phosphorus (2.5-4.5) mg/dL Magnesium (1.6-2.3) mg/dL Assessment and Plan Plan: 1 hyponatremia secondary to liver failure. Continue sodium tablets, 1500 fluid restriction 1 dose of IV Lasix. Nephrology consult appreciated. Samsca ordered. 2 pancreatic mass with metastatic disease to the liver with significant ascites. Last paracentesis on 06/29 Liver biopsy done on 06/29. Follows Dr. Christina vega possible treatment. Agents prognosis appeared to be very poor as ascites fluid is positive for adenocarcinoma. Elevated CA-19-9 9, CEA and normal alpha-fetoprotein suggesting metastatic disease to liver. 3 decompensated liver disease likely secondary to metastatic disease of the liver. patient has a meld score of 32 with 52% mortality in 3 months. Lactulose to prevent hepatic encephalopathy. Patient initiated on Lasix and Aldactone 4 ascites secondary to decompensated liver disease. Mild abdominal distention. We'll hold for ultrasound abdomen for now. Last paracentesis 3 days ago. Paracentesis today with interventional radiology. 5 tobacco use and dependence nicotine patch daily 6 hyperkalemia status post one dose of kayexalate 7 history of CVA with no residual - stable. 8. Thrombocytopenia secondary to hepatic failure 9. Hyponatremia. 10. Leukocytosis secondary to metastatic liver disease. Dr. Melendez consult appreciated. CODE STATUS: DO NOT RESUSCITATE Discharge plan: Transition to IP hospice and then to [facility] once bed is available. Impression and plan of care have been directed as dictated by the signing physician. Dagmar Thrasher nurse practitioner acting as scribe for signing physician.
--- NOTE | 2017-07-08 13:01 | P.DS ---
Providers Date of admission: 07/01/17 15:40 Expected date of discharge: 07/08/17 Attending physician: Vane Beal MD Consults: 07/01/17 16:51 Consult Physician Routine Consulting Provider: Shahbaz Diallo Consult Reason/Comments: low sodium Do you want consulting provider notified?: Already Contacted Placement Type Exists?: Yes 07/02/17 14:05 Consult Physician Routine Consulting Provider: Vane Beal Consult Reason/Comments: medical management Do you want consulting provider notified?: Already Contacted 07/02/17 15:08 Consult Physician Routine Consulting Provider: Gustavo De Guzman Consult Reason/Comments: liver ca Do you want consulting provider notified?: Already Contacted 07/03/17 01:56 Consult Physician Routine Consulting Provider: Trey Sneed Consult Reason/Comments: ICU management Do you want consulting provider notified?: Yes 07/04/17 12:23 Consult Physician Routine Consulting Provider: Tawnya Fenton Consult Reason/Comments: abdnormal labs Do you want consulting provider notified?: Yes Primary care physician: [facility] Course: 61 yr old male patient of Dr. Young with past medical history of obesity, CVA, shingles, tobacco abuse, recently diagnosed metastatic disease with unknown primary with multiple liver mass and pancreatic mass at the pancreatic tail who underwent liver biopsy on 06/29. Patient was recently admitted on 06/18 for abdominal distention and weakness. He underwent CT abdomen previously on 06/13 which suggested large ascites, hyperdense lesion on the liver measuring 4 cm without bile duct dilation consistent with metastatic disease there was a 5 cm mass in the tail of the pancreas suspicious for cancer. Patient underwent 3 paracentesis so far, 9.2 L removed during the first paracentesis is an 7 L removed during the second and the last one was on with 8.3 L removed which was after 4 dyas from the second one. Cytology positive for adenocarcinoma in the fluid. Increased CEA 19.9 with normal CEA. During the last admission patient was noted to have a sodium of 122, elevated liver enzymes with bilirubin as high as 13.6 with increase in transaminase. Urine osmolarity at that time was 367, urine sodium was 15. Patient received 1 dose of Samsca. He was discharged on 06/30 as patient had a appointment with Dr. Vasquez and is currently He does complain of abdominal distention and lower extremity edema. He denies any nausea, vomiting. It is lactulose for regular bowel movements. INR today was 2. Liver biopsy was canceled. Vitamin K 5 mg given. Repeat INR tomorrow for possible liver biopsy. Patient comes in today been intractable nausea, associated with progressive abdominal pain and increased drowsiness. Vitals are stable with a blood pressure 127/74, respiratory rate 20, pulse rate 85 with labs suggestive of WBC 20.5 that continues to progress, increased hemoglobin 18.6, sodium 120 which dropped to 119 on administration of IV fluid which were stopped. Increase potassium to 5.2, chloride 87, creatinine 1.75, bilirubin 18, the increased AST to 200, ALT 194, alkaline phosphatase 854. Patient received 60 mg IV of Lasix. 07/05: Patient developed worsening Ascites might be going for Paracentesis, his hyponatremia slightly but better but not subtle is still seen nephrology regular basis with his severe comorbidity currently. Still apparently talk with oncology and family about hospice and comfort care. 07/06: Lab work continues to worsen with a white count of 23 and platelet count 117, sodium remains low at 124 potassium 6.2. One dose of Kayexalate has been ordered. Total bilirubin is now up to 19.9 and liver function tests continue to worsen. BUN [address] Diallo has continued him on 1.5 L fluid restriction, salt tablets, Samsca and 1 dose of IV Lasix with insulin and D 50. Oncology is following on an as-needed basis. Patient is followed by Dr. Melendez for persistent leukocytosis most likely due to reaction for significant hepatic metastasis. Oncology to have family meeting this afternoon. Discussed with patient prognosis. Jaundice appears to be worsening. 07/07: Abdominal ultrasound reveals ascites with fluid in LLQ 6 cm in depth. Plan for paracentesis tomorrow and transition to hospice initially as IP until bed is available at the [facility]. He continues to have electrolyte abnormalities addressed by Dr. Diallo. Hospice to meet with the patient's family regarding further plan and financial plan. 07/08: Patient did not undergo paracentesis as his INR was too high. Patient's laboratory studies are significantly worsening each day. Abdomen is extending as well. Plan is to transition to inpatient hospice as respite care. Awaiting family to approve. Medications will be addressed to include comfort mostly. Discharge diagnoses: 1 hyponatremia secondary to liver failure. 2 pancreatic mass with metastatic disease to the liver with significant ascites. 3 decompensated liver disease likely secondary to metastatic disease of the liver. 4 ascites secondary to decompensated liver disease. 5 tobacco use and dependence nicotine patch daily 6 hyperkalemia 7 history of CVA with no residual 8. Thrombocytopenia secondary to hepatic failure 9. Leukocytosis secondary to metastatic liver disease. Discharge plan: Transition to hospice as Respite Impression and plan of care have been directed as dictated by the signing physician. Dagmar Thrasher nurse practitioner acting as scribe for signing physician. Patient Condition at Discharge: Stable Plan - Discharge Summary Discharge Rx Participant: No New Discharge Prescriptions: No Action Ondansetron [Zofran] 4 mg PO Q6H PRN #24 tab PRN Reason: nausea Lactulose [Cephulac] 20 gm PO TID HYDROcodone/APAP 5-325MG [Durant 5-325] 1 tab PO TID PRN PRN Reason: Pain Furosemide [Lasix] 40 mg PO BID #60 tablet Nicotine 21Mg/24Hr Patch [Habitrol] 1 patch TRANSDERM DAILY #30 patch Spironolactone [Aldactone] 50 mg PO DAILY #60 tab Discharge Medication List Ondansetron [Zofran] 4 mg PO Q6H PRN #24 tab 06/18/17 [Rx] HYDROcodone/APAP 5-325MG [Durant 5-325] 1 tab PO TID PRN 06/28/17 [History] Lactulose [Cephulac] 20 gm PO TID 06/28/17 [History] Furosemide [Lasix] 40 mg PO BID #60 tablet 06/30/17 [Rx] Nicotine 21Mg/24Hr Patch [Habitrol] 1 patch TRANSDERM DAILY #30 patch 06/30/17 [ Rx] Spironolactone [Aldactone] 50 mg PO DAILY #60 tab 06/30/17 [Rx]
--- NOTE | 2017-07-08 17:55 | P.PN ---
Subjective Progress Note Date: 07/08/17 Principal diagnosis: metastatic pancreatic adenocarcinoma Patient seen today in follow-up, he does answer questions, some confusion, pretty lethargic. He asked about having his abdomen and drained, we will do patient that it would be if he felt that it was something that would make him feel better. Patient did request pain medication while we were at the bedside. Objective - Vital Signs Vital signs: Vital Signs Temp 97.4 F L 07/08/17 05:00 Pulse 73 07/08/17 05:00 Resp 9 L 07/08/17 05:00 BP 93/63 07/08/17 05:00 Pulse Ox 96 07/08/17 05:00 Intake & Output 07/07/17 07/08/17 07/08/17 18:59 06:59 18:59 Intake Total 520 Output Total 100 Balance 420 Intake: IV 20 0.9 NaCl- Flush 20 Oral 500 Output: Urine 100 Stool 0 Other: Voiding Method Urinal Urinal # Voids 2 - Exam Well-developed male laying in bed, arouses to voice and touch,,he does answer some questions appropriately, he drifts off to sleep very easily, respirations are unlabored, no visible symptoms or signs of pain, abdomen is distended and firm, patient does not react to moderate palpation, lower extremities are mottled - Labs CBC & Chem 7: 07/08/17 06:49 07/08/17 06:49 Labs: Abnormal Lab Results - Last 24 Hours (Table) 07/07/17 07/07/17 07/08/17 Range/Units 09:48 19:05 06:49 WBC 21.0 H (3.8-10.6) k/uL RBC 6.25 H (4.30-5.90) m/uL Hgb 18.6 H (13.0-17.5) gm/dL Hct 57.2 H (39.0-53.0) % RDW 16.7 H (11.5-15.5) % Plt Count 118 L (150-450) k/uL Neutrophils # (Manual) 20.30 H (1.3-7.7) k/uL Lymphocytes # (Manual) 0.21 L (1.0-4.8) k/uL PT 27.3 H (9.0-12.0) sec INR 3.0 H (<1.2) Sodium (137-145) mmol/L Potassium 5.9 H (3.5-5.1) mmol/L Chloride (98-107) mmol/L Carbon Dioxide (22-30) mmol/L BUN (9-20) mg/dL Creatinine (0.66-1.25) mg/dL Glucose (74-99) mg/dL Phosphorus (2.5-4.5) mg/dL Magnesium (1.6-2.3) mg/dL 07/08/17 07/08/17 Range/Units 06:49 06:49 WBC (3.8-10.6) k/uL RBC (4.30-5.90) m/uL Hgb (13.0-17.5) gm/dL Hct (39.0-53.0) % RDW (11.5-15.5) % Plt Count (150-450) k/uL Neutrophils # (Manual) (1.3-7.7) k/uL Lymphocytes # (Manual) (1.0-4.8) k/uL PT 24.7 H (9.0-12.0) sec INR 2.8 H (<1.2) Sodium 125 L (137-145) mmol/L Potassium 5.9 H (3.5-5.1) mmol/L Chloride 92 L (98-107) mmol/L Carbon Dioxide 16 L (22-30) mmol/L BUN 108 H* (9-20) mg/dL Creatinine 3.68 H (0.66-1.25) mg/dL Glucose 111 H (74-99) mg/dL Phosphorus 7.7 H (2.5-4.5) mg/dL Magnesium 3.4 H (1.6-2.3) mg/dL Assessment and Plan (1) Pancreatic cancer metastasized to liver Current Visit: Yes Status: Acute Priority: High Code(s): C25.9 - MALIGNANT NEOPLASM OF PANCREAS, UNSPECIFIED; C78.7 - SECONDARY MALIG NEOPLASM OF LIVER AND INTRAHEPATIC BILE DUCT SNOMED Code(s): 475582338 (2) Neoplasm related pain Current Visit: Yes Status: Acute Priority: High Code(s): G89.3 - NEOPLASM RELATED PAIN (ACUTE) (CHRONIC) SNOMED Code(s): 704484835 (3) Malignant ascites Current Visit: Yes Status: Acute Priority: High Code(s): R18.0 - MALIGNANT ASCITES SNOMED Code(s): 288195686 (4) Hyperbilirubinemia Current Visit: Yes Status: Acute Priority: High Code(s): E80.6 - OTHER DISORDERS OF BILIRUBIN METABOLISM SNOMED Code(s): 32199116 Plan: Patient on comfort measures only, awaiting placement at the hospice house.
[2017-07-08] MEDS: traZODone HCL 50 MG TAB PO SCH (19:40)
[2017-07-08] MEDS: SENNOSIDES 8.6 MG TAB PO SCH (19:40)
[2017-07-09] MEDS: MORPHINE SULFATE 4 MG/ML SYRINGE IVP PRN ×5 (01:13→13:22)
[2017-07-09] MEDS: SODIUM BICARBONATE TAB 650 MG TAB PO SCH (08:16)
[2017-07-09] MEDS: NICOTINE 21MG/24HR PATCH TRANSDERM SCH (08:16)
[2017-07-09] MEDS: SODIUM CHLORIDE TAB 1 GM TAB PO SCH (08:16)
[2017-07-09 11:26] VITALS: RESP 14
[2017-07-09 11:54] LABS: Potassium 6.3 mmol/L (3.5-5.1)
--- NOTE | 2017-07-09 12:46 | P.PN ---
Subjective Progress Note Date: 07/08/17 61 yr old male patient of Dr. Young with past medical history of obesity, CVA, shingles, tobacco abuse, recently diagnosed metastatic disease with unknown primary with multiple liver mass and pancreatic mass at the pancreatic tail who underwent liver biopsy on 06/29. Patient was recently admitted on 06/18 for abdominal distention and weakness. He underwent CT abdomen previously on 06/13 which suggested large ascites, hyperdense lesion on the liver measuring 4 cm without bile duct dilation consistent with metastatic disease there was a 5 cm mass in the tail of the pancreas suspicious for cancer. Patient underwent 3 paracentesis so far, 9.2 L removed during the first paracentesis is an 7 L removed during the second and the last one was on with 8.3 L removed which was after 4 dyas from the second one. Cytology positive for adenocarcinoma in the fluid. Increased CEA 19.9 with normal CEA. During the last admission patient was noted to have a sodium of 122, elevated liver enzymes with bilirubin as high as 13.6 with increase in transaminase. Urine osmolarity at that time was 367, urine sodium was 15. Patient received 1 dose of Samsca. He was discharged on 06/30 as patient had a appointment with Dr. Vasquez and is currently He does complain of abdominal distention and lower extremity edema. He denies any nausea, vomiting. It is lactulose for regular bowel movements. INR today was 2. Liver biopsy was canceled. Vitamin K 5 mg given. Repeat INR tomorrow for possible liver biopsy. Patient comes in today been intractable nausea, associated with progressive abdominal pain and increased drowsiness. Vitals are stable with a blood pressure 127/74, respiratory rate 20, pulse rate 85 with labs suggestive of WBC 20.5 that continues to progress, increased hemoglobin 18.6, sodium 120 which dropped to 119 on administration of IV fluid which were stopped. Increase potassium to 5.2, chloride 87, creatinine 1.75, bilirubin 18, the increased AST to 200, ALT 194, alkaline phosphatase 854. Patient received 60 mg IV of Lasix. 07/05: Patient developed worsening Ascites might be going for Paracentesis, his hyponatremia slightly but better but not subtle is still seen nephrology regular basis with his severe comorbidity currently. Still apparently talk with oncology and family about hospice and comfort care. 07/06: Lab work continues to worsen with a white count of 23 and platelet count 117, sodium remains low at 124 potassium 6.2. One dose of Kayexalate has been ordered. Total bilirubin is now up to 19.9 and liver function tests continue to worsen. BUN [address] Diallo has continued him on 1.5 L fluid restriction, salt tablets, Samsca and 1 dose of IV Lasix with insulin and D 50. Oncology is following on an as-needed basis. Patient is followed by Dr. Melendez for persistent leukocytosis most likely due to reaction for significant hepatic metastasis. Oncology to have family meeting this afternoon. Discussed with patient prognosis. Jaundice appears to be worsening. 07/07: Abdominal ultrasound reveals ascites with fluid in LLQ 6 cm in depth. Plan for paracentesis tomorrow and transition to hospice initially as IP until bed is available at the [facility]. He continues to have electrolyte abnormalities addressed by Dr. Diallo. Hospice to meet with the patient's family regarding further plan and financial plan. 07/08: Patient was prepared for transition over to inpatient respite care hospice but refused. Case management and this lpn r[facility] hospice have been working with the patient's . At this time, patient will remain as an inpatient under comfort care. Objective - Vital Signs Vital signs: Vital Signs Temp 97.4 F L 07/08/17 05:00 Pulse 73 07/08/17 05:00 Resp 6 L 07/08/17 10:54 BP 93/63 07/08/17 05:00 Pulse Ox 96 07/08/17 05:00 Intake & Output 07/08/17 07/09/17 07/09/17 18:59 06:59 18:59 Weight 109 kg 109 kg Other: Voiding Method Urinal # Voids 1 0 - Exam General appearance: Present: cooperative, disheveled, mild distress, obese. Absent: average body habitus, morbidly obese, no acute distress, severe distress , thin - EENT Eyes: Present: abnormal pupil, scleral icterus, normal appearance. Absent: anicteric sclerae, disc margins sharp, edentulous, EOMI, PERRLA, fundus normal, photophobia, dentition normal, poor dentition, ptosis ENT: Present: normal oropharynx, pharyngeal erythema. Absent: hard of hearing, hearing grossly normal, NA/AT, other, thrush, tonsillar exudates, tonsillar swelling Ears: bilateral: normal - Neck Neck: Present: normal ROM. Absent: lymphadenopathy, other, rigidity, stridor, thyromegaly Carotids: bilateral: upstroke normal Thyroid: bilateral: normal size - Respiratory Respiratory: bilateral: diminished, dullness - Cardiovascular Rhythm: regular Heart sounds: normal: S1, S2 Abnormal Heart Sounds: Present: systolic murmur - Gastrointestinal General gastrointestinal: Present: distended, hepatomegaly, scaphoid, splenomegaly. Absent: absent bowel sounds, decreased bowel sounds, hyperactive bowel sounds, normal bowel sounds, organomegaly, rigid, soft, tenderness, umbilical hernia, ventral hernia - Integumentary Integumentary: Present: normal, pale. Absent: calor, cellulitis, cyanotic, decreased turgor, flushed, jaundiced, normal turgor, rash, ulcer - Neurologic Neurologic: Present: CNII-XII intact - Musculoskeletal Musculoskeletal: Present: generalized weakness. Absent: gait normal, strength equal bilaterally, right sided weakness, left sided weakness - Psychiatric Psychiatric: Present: A&O x's 3, appropriate affect. Absent: intact judgment & insight - Labs CBC & Chem 7: 07/08/17 06:49 07/08/17 06:49 Assessment and Plan Plan: 1 hyponatremia secondary to liver failure. Continue sodium tablets, 1500 fluid restriction. Nephrology consult appreciated. 2 pancreatic mass with metastatic disease to the liver with significant ascites. Last paracentesis on 06/29 Liver biopsy done on 06/29. Follows Dr. Christina vega possible treatment. Agents prognosis appeared to be very poor as ascites fluid is positive for adenocarcinoma. Elevated CA-19-9 9, CEA and normal alpha-fetoprotein suggesting metastatic disease to liver. 3 decompensated liver disease likely secondary to metastatic disease of the liver. patient has a meld score of 32 with 52% mortality in 3 months. Lactulose to prevent hepatic encephalopathy. Patient initiated on Lasix and Aldactone 4 ascites secondary to decompensated liver disease. Mild abdominal distention. We'll hold for ultrasound abdomen for now. Last paracentesis 3 days ago. Paracentesis today with interventional radiology. 5 tobacco use and dependence nicotine patch daily 6 hyperkalemia status post one dose of kayexalate 7 history of CVA with no residual - stable. 8. Thrombocytopenia secondary to hepatic failure 9. Hyponatremia. 10. Leukocytosis secondary to metastatic liver disease. Dr. Melendez consult appreciated. CODE STATUS: DO NOT RESUSCITATE Discharge plan: Comfort measures Impression and plan of care have been directed as dictated by the signing physician. Dagmar Thrasher nurse practitioner acting as scribe for signing physician.
--- NOTE | 2017-07-09 12:49 | P.PN ---
Subjective Progress Note Date: 07/09/17 61 yr old male patient of Dr. Young with past medical history of obesity, CVA, shingles, tobacco abuse, recently diagnosed metastatic disease with unknown primary with multiple liver mass and pancreatic mass at the pancreatic tail who underwent liver biopsy on 06/29. Patient was recently admitted on 06/18 for abdominal distention and weakness. He underwent CT abdomen previously on 06/13 which suggested large ascites, hyperdense lesion on the liver measuring 4 cm without bile duct dilation consistent with metastatic disease there was a 5 cm mass in the tail of the pancreas suspicious for cancer. Patient underwent 3 paracentesis so far, 9.2 L removed during the first paracentesis is an 7 L removed during the second and the last one was on with 8.3 L removed which was after 4 dyas from the second one. Cytology positive for adenocarcinoma in the fluid. Increased CEA 19.9 with normal CEA. During the last admission patient was noted to have a sodium of 122, elevated liver enzymes with bilirubin as high as 13.6 with increase in transaminase. Urine osmolarity at that time was 367, urine sodium was 15. Patient received 1 dose of Samsca. He was discharged on 06/30 as patient had a appointment with Dr. Vasquez and is currently He does complain of abdominal distention and lower extremity edema. He denies any nausea, vomiting. It is lactulose for regular bowel movements. INR today was 2. Liver biopsy was canceled. Vitamin K 5 mg given. Repeat INR tomorrow for possible liver biopsy. Patient comes in today been intractable nausea, associated with progressive abdominal pain and increased drowsiness. Vitals are stable with a blood pressure 127/74, respiratory rate 20, pulse rate 85 with labs suggestive of WBC 20.5 that continues to progress, increased hemoglobin 18.6, sodium 120 which dropped to 119 on administration of IV fluid which were stopped. Increase potassium to 5.2, chloride 87, creatinine 1.75, bilirubin 18, the increased AST to 200, ALT 194, alkaline phosphatase 854. Patient received 60 mg IV of Lasix. 07/05: Patient developed worsening Ascites might be going for Paracentesis, his hyponatremia slightly but better but not subtle is still seen nephrology regular basis with his severe comorbidity currently. Still apparently talk with oncology and family about hospice and comfort care. 07/06: Lab work continues to worsen with a white count of 23 and platelet count 117, sodium remains low at 124 potassium 6.2. One dose of Kayexalate has been ordered. Total bilirubin is now up to 19.9 and liver function tests continue to worsen. BUN [address] Diallo has continued him on 1.5 L fluid restriction, salt tablets, Samsca and 1 dose of IV Lasix with insulin and D 50. Oncology is following on an as-needed basis. Patient is followed by Dr. Melendez for persistent leukocytosis most likely due to reaction for significant hepatic metastasis. Oncology to have family meeting this afternoon. Discussed with patient prognosis. Jaundice appears to be worsening. 07/07: Abdominal ultrasound reveals ascites with fluid in LLQ 6 cm in depth. Plan for paracentesis tomorrow and transition to hospice initially as IP until bed is available at the [facility]. He continues to have electrolyte abnormalities addressed by Dr. Diallo. Hospice to meet with the patient's family regarding further plan and financial plan. 07/08: Patient was prepared for transition over to inpatient respite care hospice but refused. Case management and this fuse coiler have been working with the patient's . At this time, patient will remain as an inpatient under comfort care. 07/09: Patient is noted to be encephalopathic, Tyson-Brady respirations, mottling of the extremities. Continue comfort care for now. Objective - Vital Signs Vital signs: Vital Signs Temp 97.4 F L 07/08/17 05:00 Pulse 73 07/08/17 05:00 Resp 6 L 07/08/17 10:54 BP 93/63 07/08/17 05:00 Pulse Ox 96 07/08/17 05:00 Intake & Output 07/08/17 07/09/17 07/09/17 18:59 06:59 18:59 Weight 109 kg 109 kg Other: Voiding Method Urinal # Voids 1 0 - Exam General appearance: Present: No distress. - EENT Eyes: Present: abnormal pupil, scleral icterus, normal appearance. Absent: anicteric sclerae, disc margins sharp, edentulous, EOMI, PERRLA, fundus normal, photophobia, dentition normal, poor dentition, ptosis ENT: Present: normal oropharynx, pharyngeal erythema. Absent: hard of hearing, hearing grossly normal, NA/AT, other, thrush, tonsillar exudates, tonsillar swelling Ears: bilateral: normal - Neck Neck: Present: normal ROM. Absent: lymphadenopathy, other, rigidity, stridor, thyromegaly Carotids: bilateral: upstroke normal Thyroid: bilateral: normal size - Respiratory Respiratory: bilateral: diminished, dullness - Cardiovascular Rhythm: regular Heart sounds: normal: S1, S2 Abnormal Heart Sounds: Present: systolic murmur - Gastrointestinal General gastrointestinal: Present: distended, hepatomegaly, scaphoid, splenomegaly. Absent: absent bowel sounds, decreased bowel sounds, hyperactive bowel sounds, normal bowel sounds, organomegaly, rigid, soft, tenderness, umbilical hernia, ventral hernia - Integumentary Integumentary: Present: Jaundice, cyanosis to the extremities. - Musculoskeletal Musculoskeletal: Present: generalized weakness. Absent: gait normal, strength equal bilaterally, right sided weakness, left sided weakness - Psychiatric Psychiatric: Present: no A&O x's 3, noappropriate affect. no intact judgment & insight - Labs CBC & Chem 7: 07/08/17 06:49 07/08/17 06:49 Assessment and Plan Plan: 1 hyponatremia secondary to liver failure. 2 pancreatic mass with metastatic disease to the liver with significant ascites. 3 decompensated liver disease likely secondary to metastatic disease of the liver with hepatic encephalopathy 4 ascites secondary to decompensated liver disease. 5 tobacco use and dependence 6 hyperkalemia 7 history of CVA with no residual 8. Thrombocytopenia secondary to hepatic failure 9. Leukocytosis secondary to metastatic liver disease. CODE STATUS: DO NOT RESUSCITATE Plan: Continue comfort measures only Discharge plan: Transition to hospice and then to [facility] once bed is available. Impression and plan of care have been directed as dictated by the signing physician. Dagmar Thrasher nurse practitioner acting as scribe for signing physician.
== END 2017-07-09 17:05 | disposition expired | DRG 435 ==
LOC: 5ONC 15:40 → 6ICU 07-03 02:40 → 5ONC 07-04 10:22
PROVIDERS: ADMIT Internal Medicine; ATTEND Internal Medicine
PROC: 0W9G3ZZ Drainage of Peritoneal Cavity, Percutaneous Approach (ICD-10-PCS; principal; 2017-07-02)
DX: C25.2 Malignant neoplasm of tail of pancreas (principal); K76.7 Hepatorenal syndrome; N17.0 Acute kidney failure with tubular necrosis; G93.40 Encephalopathy, unspecified; C78.7 Secondary malignant neoplasm of liver and intrahepatic bile duct; D68.9 Coagulation defect, unspecified; E44.0 Moderate protein-calorie malnutrition; E87.2 Acidosis; K76.6 Portal hypertension; R18.0 Malignant ascites; E22.2 Syndrome of inappropriate secretion of antidiuretic hormone; D69.59 Other secondary thrombocytopenia; D72.829 Elevated white blood cell count, unspecified; E66.9 Obesity, unspecified; Z68.35 Body mass index [BMI] 35.0-35.9, adult; E86.0 Dehydration; E87.5 Hyperkalemia; E87.70 Fluid overload, unspecified; F17.200 Nicotine dependence, unspecified, uncomplicated; G89.3 Neoplasm related pain (acute) (chronic); K59.03 Drug induced constipation; K72.90 Hepatic failure, unspecified without coma; Z51.5 Encounter for palliative care; Z66 Do not resuscitate; Z82.49 Family history of ischemic heart disease and other diseases of the circulatory system; Z82.5 Family history of asthma and other chronic lower respiratory diseases; Z83.3 Family history of diabetes mellitus; Z86.73 Personal history of transient ischemic attack (TIA), and cerebral infarction without residual deficits
CPT/HCPCS: 49083; 71045; 76705; 80048; 80053; 81003; 83735; 83930; 83935; 84100; 84132; 84295; 84300; 84550; 85025; 85610